=== PATIENT | female | born 1935 | race Caucasian/White ===

== ENCOUNTER 2019-03-13 16:32 | Inpatient (IN) | payer OTHER ==
[~2019-03-13] VITALS: Ht 160 cm; Wt 109.0 kg
[~2019-03-13 16:32] MED LIST: ACET325 PO; ALLEGRA ALLERGY60 MG PO; Advair Hfa 230-12 GM; Aspirin EC81 MG PO; DILT60 PO; DULERA 200 MCG/13 GM INH; FENO48 PO; FLONASE ALLERG9.9 ML; FLUSAL2505 INH; GLIM2 PO; LEVFLO250 PO; LEVFLO500 PO; LEVSOD125 PO; METF500 PO; MONT10T PO; Mirapex0.25 MG PO; POTA10T PO; QUIN10 PO; QUIN5 PO; SERT50 PO; TORSE20 PO
[2019-03-13 17:09] LABS: BASOPHILS ABSOLUTE AUTO 0.02 K/mm3 (0.00-0.23); BASOPHILS PERCENT AUTO 0 % (0-2); EOSINOPHILS ABSOLUTE AUTO 0.03 K/mm3 (0.00-0.68); EOSINOPHILS PERCENT AUTO 0 % (0-6); Hematocrit 35.4 % (33.0-51.0); IMMATURE GRAN ABSOLUTE AUTO 0.24 K/mm3 (0.00-0.10); IMMATURE GRAN PERCENT AUTO 2 % (0-1); LYMPHOCYTES ABSOLUTE AUTO 1.06 K/mm3 (0.84-5.20); LYMPHOCYTES PERCENT AUTO 7 % (21-46); MONOCYTES ABSOLUTE AUTO 0.64 K/mm3 (0.16-1.47); MONOCYTES PERCENT AUTO 5 % (4-13); Mean Corpuscular HGB 29.4 pg (26.0-34.0); Mean Corpuscular HGB Conc 33.9 g/dL (31.5-36.5); Mean Corpuscular Volume 87 fL (80-100); Mean Platelet Volume 9.7 fL (9.1-12.4); NEUTROPHILS ABSOLUTE AUTO 12.25 K/mm3 (1.96-9.15); NEUTROPHILS PERCENT AUTO 86 % (41-73); Platelet Count 274 K/mm3 (150-400); RDW Coefficient Variation 14.7 % (11.7-14.2); RDW Standard Deviation 46.8 fL (35.1-46.3); Red Blood Cell Count 4.08 M/mm3 (3.80-5.20); White Blood Cell Count 14.24 K/mm3 (4.00-11.30)
[2019-03-13 17:28] LABS: Albumin, Blood 3.5 g/dL (3.4-5.0); Albumin/Globulin Ratio 0.9 (0.8-1.8); Bilirubin, Total 0.3 mg/dL (0.1-1.0); Bun/Creatinine Ratio 37.2 (12.0-20.0); Calcium, Blood 8.3 mg/dL (8.5-10.1); Creatinine, Blood 1.37 mg/dL (0.40-1.00); Globulin, Blood 3.7 g/dL (2.2-4.0); Potassium, Blood 4.9 mmol/L (3.5-5.5); Total Protein, Blood 7.2 g/dL (6.4-8.2); Troponin I 0.035 ng/mL (0.000-0.040)
[2019-03-13] MEDS ORDERED: ALBU2.5V5 NEB (19:34)
[2019-03-13] MEDS ORDERED: ALLO100 PO (19:41)
--- NOTE | 2019-03-13 19:44 | NUR ---
Report from Leonie in ER on 83 year old PT with COPD who was outpt ABX and steroids with continued SOB. Uses home CPAP. Will be on BG achs and IV steroids. Await admission.
[2019-03-13] MEDS ORDERED: DULERA 200 MCG/13 GM INH (19:45)
[2019-03-13] MEDS ORDERED: ALBU90OI61 INH (19:46)
[2019-03-13] MEDS ORDERED: ASCO500 PO (19:47)
[2019-03-13] MEDS ORDERED: THERA1 EACH PO (19:47)
[2019-03-13] MEDS ORDERED: Oyster Shell C500 MG PO (19:49)
[2019-03-13] MEDS ORDERED: Fish Oil 10001000 MG PO (19:50)
[2019-03-13] MEDS ORDERED: DICLOFENAC SOD100 G1 TOP (19:50)
[2019-03-14 04:59] LABS: BASOPHILS ABSOLUTE AUTO 0.01 K/mm3 (0.00-0.23); BASOPHILS PERCENT AUTO 0 % (0-2); EOSINOPHILS PERCENT AUTO 0 % (0-6); Hematocrit 37.5 % (33.0-51.0); Hemoglobin 12.3 g/dL (11.5-16.0); IMMATURE GRAN ABSOLUTE AUTO 0.29 K/mm3 (0.00-0.10); IMMATURE GRAN PERCENT AUTO 3 % (0-1); LYMPHOCYTES ABSOLUTE AUTO 0.78 K/mm3 (0.84-5.20); LYMPHOCYTES PERCENT AUTO 7 % (21-46); MONOCYTES ABSOLUTE AUTO 0.13 K/mm3 (0.16-1.47); MONOCYTES PERCENT AUTO 1 % (4-13); Mean Corpuscular HGB 28.7 pg (26.0-34.0); Mean Corpuscular HGB Conc 32.8 g/dL (31.5-36.5); Mean Corpuscular Volume 87 fL (80-100); Mean Platelet Volume 9.6 fL (9.1-12.4); NEUTROPHILS ABSOLUTE AUTO 10.59 K/mm3 (1.96-9.15); NEUTROPHILS PERCENT AUTO 90 % (41-73); Platelet Count 221 K/mm3 (150-400); RDW Coefficient Variation 14.6 % (11.7-14.2); RDW Standard Deviation 46.5 fL (35.1-46.3); Red Blood Cell Count 4.29 M/mm3 (3.80-5.20)
[2019-03-14 05:21] LABS: Bun/Creatinine Ratio 41.9 (12.0-20.0); Calcium, Blood 8.7 mg/dL (8.5-10.1); Creatinine, Blood 1.36 mg/dL (0.40-1.00)
--- NOTE | 2019-03-14 06:21 | NUR ---
83 year old female with copd on home cpap and nebs admitted with continued sob despite oral steroids and antibiotic therapy. On room air, neb txs q 4 hours WA and prn. Denies pain or acute distress. Continues on IV steroids q 6 hours. had elevated blood glucose took hs snack and sliding scale insulin.
--- NOTE | 2019-03-14 18:35 | NUR ---
SHIFT SUMMARY: PT IS ADMITED FOR COPD EXACERBATION. SHE IS ABLE TO CHANGE POSITIONS IN BED, AND AMBULATES INDEPEPENDANTLY TO THE RESTROOM. SHE IS IS CONTACT [facility] FOR HX OF MERSA. FAMILY VISITED FOR ABOUT 30 MINUTES. SHE IS COOPERATIVE WITH CARE. EATING, DRINKING, VOIDING WELL. DYSPNEA ON EXERTION RECOVERS WITHIN 60 SECONDS. RESPRATION EVEN AND UNLABORED ON ROOM AIR AT REST.
--- NOTE | 2019-03-14 21:44 | NUR ---
03/14/192144 INFORMED DR CHAVEZ OF BLOOD SUGAR= 423 AND WILL BE GETTING 12 UNITS PER INSULIN SCALE. SHE STATES THAT WILL BE ADEQUATE FOR NOW.
--- NOTE | 2019-03-15 07:48 | NUR ---
03/15/19 0630 AWAKENED FOR AM MEDS. CPAP ON ALL NIGHT EXCEPT WHEN UP TO THE BATHROOM. SLIGHT SOB WITH ACTIVITY OR TALKING BUT O2 SATS REMAIN GOOD ON ROOM AIR. UNEVENTFUL NIGHT.
--- NOTE | 2019-03-15 18:47 | NUR ---
SHIFT SUMMARY: HOME O2 EVALUATION WALK AND REST COMPLEATED. SESP TOOK APPROX. 90 SECONDS TO STABALIZE AFTER EXERTION. SATS REMAINED ABOVE 90%. PT REQUIRES CONTINUED INSULIN COVERAGE. PATIENT INDEPENDENT IN THE ROOM. EATING AND DRINKING WELL. NO ACUTE CHHANGES DURING THIS SHIFT.
--- NOTE | 2019-03-16 06:35 | NUR ---
VSS, AFEBRILE, A/O, INDEPENDENT. PLEASANT, COOPERATIVE, [place], TAKES MEDS WHOLE W/WATER, SLEPT WELL OVERNOC, NO COMPLAINTS, PT ANTICIPATES BEING D/C'S HOME TODAY OR TOMORROW. WILL REPORT TO ON-COMINGS SHIFT.
[2019-03-16] MEDS ORDERED: PRED20 (11:16)
--- NOTE | 2019-03-16 13:19 | NUR ---
PATIENT DISCHARGED AT 1315. WHEELED DOWN BY NURSE AND HELPED INTO THE CAR. DAUGHTER TO TAKE HER HOME. DISCHARGE INFORMATION WAS GONE OVER EARLIER. IV PREVIOUSLY REMOVED.
--- NOTE | 2019-03-16 15:06 | NUR ---
D/C INSTRUCTIONS PROVIDED AND EXPLAINED TO PT. IV REMOVED. PT D/C VIA WHEELCHAIR WITH GLASS BLOWER HELPER AND FAMILY.
== END 2019-03-16 13:34 | disposition home or self-care (01) | DRG 203 ==
LOC: ER 16:32 → MEDS 19:10 → ENPENDDIS 03-16 09:08 → MEDS 03-16 13:34
PROVIDERS: Physician Assistant; ADMIT Hospitalist
DX: J45.51 Severe persistent asthma with (acute) exacerbation (principal); Z79.82 Long term (current) use of aspirin; Z79.84 Long term (current) use of oral hypoglycemic drugs; G47.33 Obstructive sleep apnea (adult) (pediatric); E03.9 Hypothyroidism, unspecified; I35.0 Nonrheumatic aortic (valve) stenosis; Z87.891 Personal history of nicotine dependence; Z96.653 Presence of artificial knee joint, bilateral; D72.829 Elevated white blood cell count, unspecified; T38.0X5A Adverse effect of glucocorticoids and synthetic analogues, initial encounter; Y92.9 Unspecified place or not applicable; E11.22 Type 2 diabetes mellitus with diabetic chronic kidney disease; N18.3 Chronic kidney disease, stage 3 (moderate); I12.9 Hypertensive chronic kidney disease with stage 1 through stage 4 chronic kidney disease, or unspecified chronic kidney disease
CPT/HCPCS: 36415; 71046; 80048; 80053; 82947; 84484; 85025; 87081; 93005; 93010; 94640; 94760; 94761; 94762; 96374; 96376; 99285-25; J2930

== ENCOUNTER 2019-05-19 05:54 | Day surgery (SDC) | payer OTHER ==
[~2019-05-19] VITALS: Ht 160 cm; Wt 109.0 kg
[~2019-05-19 05:54] MED LIST changes: +ALBU2.5V5 NEB; +ALBU90OI61 INH; +ALLO100 PO; +ASCO500 PO; +DICLOFENAC SOD100 G1 TOP; +Fish Oil 10001000 MG PO; +Oyster Shell C500 MG PO; +PRED20; +THERA1 EACH PO
--- NOTE | 2019-05-19 09:58 | NUR ---
PT HAS BEEN IN RECLINER, UP TO BTR X 2, RADIAL TR BAND SITE STABLE, FINISHED BREAKFAST, SIPPING TEA, CBG 90'S BEFORE BREAKFAST, VSS, SEE RYTHM STRIP RECORD FOR RECOVERY VITAL SIGNS
--- NOTE | 2019-05-19 11:27 | NUR ---
PT DRESSED, IV DC'D INTACT, R RADIAL DRESSING/WRIST SPLINT/ARMSLING PLACED. SITE STABLE, PT DC'D BY WC BY ESCORT W IRENEE DARY.
== END 2019-05-19 11:30 | disposition home or self-care (01) ==
LOC: MHTC 05:54
DX: Z01.810 Encounter for preprocedural cardiovascular examination (principal); I35.0 Nonrheumatic aortic (valve) stenosis; I25.10 Atherosclerotic heart disease of native coronary artery without angina pectoris; E11.9 Type 2 diabetes mellitus without complications; I10 Essential (primary) hypertension; G47.30 Sleep apnea, unspecified; J45.909 Unspecified asthma, uncomplicated; E03.9 Hypothyroidism, unspecified; E78.5 Hyperlipidemia, unspecified; M10.9 Gout, unspecified; Z88.1 Allergy status to other antibiotic agents; Z88.8 Allergy status to other drugs, medicaments and biological substances; Z79.84 Long term (current) use of oral hypoglycemic drugs; Z79.899 Other long term (current) drug therapy; Z99.89 Dependence on other enabling machines and devices; Z87.891 Personal history of nicotine dependence
CPT/HCPCS: 82947; 93454; 99152; 99153; C1769; C1894; J1644; J2250; J3010; J7030; J7042; Q9967

== ENCOUNTER 2019-09-16 00:24 | Day surgery (SDC) | payer OTHER | END 2019-09-16 16:10 | disposition home or self-care (01) | LOC: ATC 00:24 | DX: I73.9 Peripheral vascular disease, unspecified (principal); E11.9 Type 2 diabetes mellitus without complications; G47.30 Sleep apnea, unspecified; I35.0 Nonrheumatic aortic (valve) stenosis; I50.9 Heart failure, unspecified; J44.9 Chronic obstructive pulmonary disease, unspecified; Z95.4 Presence of other heart-valve replacement; Z88.1 Allergy status to other antibiotic agents; Z88.8 Allergy status to other drugs, medicaments and biological substances; Z87.891 Personal history of nicotine dependence | CPT/HCPCS: 36415; 36430; 86850; 86900; 86901; 86923; J7050; P9016 ==

== ENCOUNTER 2019-09-18 21:14 | Emergency (ER) | payer OTHER ==
[~2019-09-18] VITALS: Ht 160 cm; Wt 108.9 kg
[2019-09-18] MEDS ORDERED: Aspir 8181 MG PO (21:42)
[2019-09-18] MEDS ORDERED: ALLO100 PO (21:42)
[2019-09-18] MEDS ORDERED: CLOP75 PO (21:42)
[2019-09-18] MEDS ORDERED: Fish Oil 10001000 MG PO (21:43)
[2019-09-18] MEDS ORDERED: SERT25 PO (21:43)
[2019-09-18] MEDS ORDERED: LEVSOD125 PO (21:43)
[2019-09-18] MEDS ORDERED: GLIM2 PO (21:43)
[2019-09-18] MEDS ORDERED: POTA10T PO (21:43)
[2019-09-18] MEDS ORDERED: DULERA 200 MCG/13 GM INH (21:44)
[2019-09-18] MEDS ORDERED: TORSE20 PO (21:44)
[2019-09-18] MEDS ORDERED: Albuterol2.5 MG/0.5 INH (21:45)
[2019-09-18] MEDS ORDERED: FERSU300 PO (21:45)
[2019-09-18] MEDS ORDERED: ALBU90OI INH (21:46)
[2019-09-18 22:03] LABS: BASOPHILS ABSOLUTE AUTO 0.08 K/mm3 (0.00-0.23); BASOPHILS PERCENT AUTO 1 % (0-2); EOSINOPHILS ABSOLUTE AUTO 0.29 K/mm3 (0.00-0.68); EOSINOPHILS PERCENT AUTO 4 % (0-6); Hemoglobin 10.9 g/dL (11.5-16.0); IMMATURE GRAN ABSOLUTE AUTO 0.11 K/mm3 (0.00-0.10); IMMATURE GRAN PERCENT AUTO 2 % (0-1); LYMPHOCYTES ABSOLUTE AUTO 1.21 K/mm3 (0.84-5.20); LYMPHOCYTES PERCENT AUTO 17 % (21-46); MONOCYTES ABSOLUTE AUTO 0.79 K/mm3 (0.16-1.47); MONOCYTES PERCENT AUTO 11 % (4-13); Mean Corpuscular HGB 28.8 pg (26.0-34.0); Mean Corpuscular HGB Conc 31.1 g/dL (31.5-36.5); Mean Platelet Volume 8.8 fL (9.1-12.4); NEUTROPHILS ABSOLUTE AUTO 4.83 K/mm3 (1.96-9.15); NEUTROPHILS PERCENT AUTO 66 % (41-73); Platelet Count 385 K/mm3 (150-400); RDW Coefficient Variation 16.1 % (11.7-14.2); RDW Standard Deviation 53.5 fL (35.1-46.3); Red Blood Cell Count 3.79 M/mm3 (3.80-5.20); White Blood Cell Count 7.31 K/mm3 (4.00-11.30)
[2019-09-18 22:08] LABS: Mean Corpuscular Volume 92 fL (80-100)
[2019-09-18 22:25] LABS: Albumin, Blood 3.3 g/dL (3.4-5.0); Albumin/Globulin Ratio 0.9 (0.8-1.8); Bilirubin, Total 0.4 mg/dL (0.1-1.0); Bun/Creatinine Ratio 30.5 (12.0-20.0); Calcium, Blood 9.2 mg/dL (8.5-10.1); Creatinine, Blood 1.41 mg/dL (0.40-1.00); Globulin, Blood 3.8 g/dL (2.2-4.0); Potassium, Blood 4.6 mmol/L (3.5-5.5); Total Protein, Blood 7.1 g/dL (6.4-8.2)
[2019-09-18] MEDS ORDERED: Vibramycin100 MG PO (22:43)
== END 2019-09-18 23:34 | disposition home or self-care (01) ==
LOC: ER 21:14
PROVIDERS: Emergency Medicine
DX: L03.115 Cellulitis of right lower limb (principal); E11.22 Type 2 diabetes mellitus with diabetic chronic kidney disease; I12.9 Hypertensive chronic kidney disease with stage 1 through stage 4 chronic kidney disease, or unspecified chronic kidney disease; N18.9 Chronic kidney disease, unspecified; D63.1 Anemia in chronic kidney disease; E11.65 Type 2 diabetes mellitus with hyperglycemia; E03.9 Hypothyroidism, unspecified; E78.5 Hyperlipidemia, unspecified; J45.909 Unspecified asthma, uncomplicated; Z87.440 Personal history of urinary (tract) infections; Z87.891 Personal history of nicotine dependence; Z88.8 Allergy status to other drugs, medicaments and biological substances; Z88.1 Allergy status to other antibiotic agents; Z79.899 Other long term (current) drug therapy; Z79.82 Long term (current) use of aspirin
CPT/HCPCS: 36415; 80053; 85025; 99283

== ENCOUNTER 2019-09-27 14:54 | Emergency (ER) | payer OTHER ==
[~2019-09-27] VITALS: Ht 160 cm; Wt 107.5 kg
[~2019-09-27 14:54] MED LIST changes: +ALBU90OI INH; +Albuterol2.5 MG/0.5 INH; +Aspir 8181 MG PO; +CLOP75 PO; +FERSU300 PO; +SERT25 PO; +Vibramycin100 MG PO
[2019-09-27 15:40] LABS: BASOPHILS PERCENT AUTO 1 % (0-2); EOSINOPHILS ABSOLUTE AUTO 0.24 K/mm3 (0.00-0.68); EOSINOPHILS PERCENT AUTO 3 % (0-6); Hematocrit 35.5 % (33.0-51.0); Hemoglobin 11.3 g/dL (11.5-16.0); IMMATURE GRAN ABSOLUTE AUTO 0.04 K/mm3 (0.00-0.10); IMMATURE GRAN PERCENT AUTO 1 % (0-1); LYMPHOCYTES PERCENT AUTO 14 % (21-46); MONOCYTES ABSOLUTE AUTO 0.68 K/mm3 (0.16-1.47); MONOCYTES PERCENT AUTO 10 % (4-13); Mean Corpuscular HGB 28.7 pg (26.0-34.0); Mean Corpuscular HGB Conc 31.8 g/dL (31.5-36.5); Mean Corpuscular Volume 90 fL (80-100); NEUTROPHILS ABSOLUTE AUTO 4.99 K/mm3 (1.96-9.15); NEUTROPHILS PERCENT AUTO 71 % (41-73); Platelet Count 289 K/mm3 (150-400); RDW Coefficient Variation 15.5 % (11.7-14.2); RDW Standard Deviation 50.8 fL (35.1-46.3); Red Blood Cell Count 3.94 M/mm3 (3.80-5.20); White Blood Cell Count 7.05 K/mm3 (4.00-11.30)
[2019-09-27 15:59] LABS: Albumin, Blood 3.7 g/dL (3.4-5.0); Albumin/Globulin Ratio 1.1 (0.8-1.8); Bilirubin, Total 0.4 mg/dL (0.1-1.0); Bun/Creatinine Ratio 34.2 (12.0-20.0); Calcium, Blood 9.7 mg/dL (8.5-10.1); Creatinine, Blood 1.52 mg/dL (0.40-1.00); Globulin, Blood 3.4 g/dL (2.2-4.0); Potassium, Blood 4.3 mmol/L (3.5-5.5); Total Protein, Blood 7.1 g/dL (6.4-8.2)
== END 2019-09-27 16:21 | disposition home or self-care (01) ==
LOC: ER 14:54
PROVIDERS: Physician Assistant
DX: L03.115 Cellulitis of right lower limb (principal); I13.0 Hypertensive heart and chronic kidney disease with heart failure and stage 1 through stage 4 chronic kidney disease, or unspecified chronic kidney disease; E11.22 Type 2 diabetes mellitus with diabetic chronic kidney disease; I50.9 Heart failure, unspecified; N18.9 Chronic kidney disease, unspecified; J44.9 Chronic obstructive pulmonary disease, unspecified; E03.9 Hypothyroidism, unspecified; E78.5 Hyperlipidemia, unspecified; Z88.1 Allergy status to other antibiotic agents; Z88.8 Allergy status to other drugs, medicaments and biological substances; Z79.899 Other long term (current) drug therapy; Z79.82 Long term (current) use of aspirin; Z79.02 Long term (current) use of antithrombotics/antiplatelets
CPT/HCPCS: 36415; 80053; 85025; 99283

== ENCOUNTER 2020-01-03 19:23 | Emergency (ER) | payer OTHER ==
[~2020-01-03] VITALS: Ht 160 cm; Wt 107.0 kg
[2020-01-03] MEDS ORDERED: BENZ2 PO (21:16)
== END 2020-01-03 21:57 | disposition home or self-care (01) ==
LOC: ER 19:23
DX: M54.2 Cervicalgia (principal); I11.0 Hypertensive heart disease with heart failure; I50.9 Heart failure, unspecified; E11.9 Type 2 diabetes mellitus without complications; J44.9 Chronic obstructive pulmonary disease, unspecified; E03.9 Hypothyroidism, unspecified; Z88.1 Allergy status to other antibiotic agents; Z88.8 Allergy status to other drugs, medicaments and biological substances; Z79.899 Other long term (current) drug therapy; Z79.82 Long term (current) use of aspirin; Z79.01 Long term (current) use of anticoagulants; Z79.51 Long term (current) use of inhaled steroids; Z87.891 Personal history of nicotine dependence
CPT/HCPCS: 72040; 99283-25

== ENCOUNTER → 2020-02-05 | Outpatient (CLI) | payer OTHER ==
[~2020-02-05] MED LIST changes: +BENZ2 PO
== END ==
LOC: LAB EV 17:39 → LAB SHORT 17:39
DX: N39.0 Urinary tract infection, site not specified (principal)
CPT/HCPCS: 87077; 87086; 87186

== ENCOUNTER 2020-03-01 13:06 | Observation (INO) | payer OTHER ==
[~2020-03-01] VITALS: Ht 160 cm; Wt 106.0 kg
[~2020-03-01 13:06] MED LIST changes: +DULO60 PO; +GLUC500 PO; +PRAMIPEXOLE D0.25 M1 PO
--- NOTE | 2020-03-01 15:40 | NUR ---
PT OPTING TO HAVE PROCEDURE SCHEDULED SOME TIME NEXT WEEK DUE TO DELAY TODAY.
--- NOTE | 2020-03-01 15:47 | NUR ---
PT OPTING TO STAY AND WAIT TO DO PROCEDURE AT THIS TIME
--- NOTE | 2020-03-01 19:39 | NUR ---
ASSUMED PT CARE AT 1905 PT ARRIVED FROM MARKETING SUPPORT COORDINATOR S/P ANGIOPLASTY TO JOHANNY AND SFA. LEFT FEMORAL ACCESS WITH MINX CLOSURE DEVICE PLACED IN MARKETING SUPPORT COORDINATOR. SITE IS SOFT, NON-TENDER WITH NO SIGNS OF OOZING. PERIPHERAL PULSES ARE PALPABLE. PT DENIES ANY NUMBNESS/TINGLING TO LOWER EXTREMITY; JUST STATES HER LEGS FEEL "HEAVY". PT ALSO HAS A LEFT RADIAL ACCESS SITE WITH TR BAND INFLATED AND IN PLACE. SITE IS SOFT, NON-TENDER WITH NO OOZING NOTED. CAP REFILL <3SEC AND RADIAL PULSE PALPATED. DENIES NUMBNESS/TINGLING TO DISTAL FINGERS. PT UNDERSTANDING OF REMAINING SUPINE, NOT BENDING AT HER KNEE, WELL NOT TILTING/LIFTING HER HEAD FORWARD. PT IS ALERT AND ORIENTED AND ABLE TO MAKE HER NEEDS KNOWN. CALL LIGHT LEFT WITHIN REACH. VSS; SEE FLOWSHEET.
--- NOTE | 2020-03-01 23:51 | NUR ---
DISCHARGED PT HOME AT 2350 DISCHARGE INSTRUCTIONS GIVEN VERBALLY, WELL WRITTEN DISCHARGE INSTRUCTIONS SENT HOME WITH PATIENT. PT DEMONSTRATED UNDERSTANDING BY VERBAL READ BACK. DISCONTINUED IV TO LEFT AC. CLEANSED LEFT RADIAL SITE WITH CHLORA PREP, ALLOWED TO DRY, AND PLACED TEGADERM TO SITE. STRONG RADIAL PULSE; SITE SOFT, NON-TENDER WITH NO OOZING NOTED. ARM BOARD PLACED A REMINDER FOR PT NOT TO BEND OR PUT PRESSURE/WEIGHT ON ARM. LEFT FEMORAL SITE REMAINS WITH CHG TEGADERM DRESSING WITH NO OOZING; SITE IS SOFT, NON-TENDER. PT ASSISTED OFF UNIT IN WHEELCHAIR TO MEET HER FRIEND BY ER ENTRANCE. BELONGINGS WENT WITH PT. VSS UPON D/C; SEE FLOWSHEET.
== END 2020-03-01 23:55 | disposition home or self-care (01) ==
LOC: MHTC 13:06 → ICUW 19:37
PROVIDERS: ADMIT Radiology Diagnostic Radiology
DX: E11.51 Type 2 diabetes mellitus with diabetic peripheral angiopathy without gangrene (principal); I70.223 Atherosclerosis of native arteries of extremities with rest pain, bilateral legs; E03.9 Hypothyroidism, unspecified; I12.9 Hypertensive chronic kidney disease with stage 1 through stage 4 chronic kidney disease, or unspecified chronic kidney disease; E11.22 Type 2 diabetes mellitus with diabetic chronic kidney disease; N18.9 Chronic kidney disease, unspecified; E78.5 Hyperlipidemia, unspecified; M10.9 Gout, unspecified; G47.30 Sleep apnea, unspecified; Z79.02 Long term (current) use of antithrombotics/antiplatelets; Z79.84 Long term (current) use of oral hypoglycemic drugs; Z87.891 Personal history of nicotine dependence; Z99.89 Dependence on other enabling machines and devices; Z95.2 Presence of prosthetic heart valve; Z88.1 Allergy status to other antibiotic agents; Z88.8 Allergy status to other drugs, medicaments and biological substances; Z79.899 Other long term (current) drug therapy
CPT/HCPCS: 85347; 99152; 99153; C1725; C1769; C1887; C1894; C2623; J1644; J2250; J3010; J7030; Q9967

== ENCOUNTER 2020-03-15 10:07 | Day surgery (SDC) | payer OTHER ==
[~2020-03-15] VITALS: Ht 160 cm; Wt 106.0 kg
--- NOTE | 2020-03-15 15:15 | NUR ---
1500 PATIENT BACK IN THE [facility]ART CENTER AT 1445 AND MANUAL PRESSURE HELD AFTER PEDAL SHEATH REMOVAL, HELD FOR 15 MINUTES. FREEDOM AND TEGADERM APPLIED AFTER HEMOSTASIS. PULSES RIGHT FOOT PT AND DP DOPPLER. LEFT FOOT PT AND DP DOPPLER. CONTINUE TO MONITOR AND WATER TO DRINK. RESTING QUIETLY.
--- NOTE | 2020-03-15 15:38 | NUR ---
1535 RIGHT FOOT WASHED OFF AROUND DRESSING. PREP SOLUTION WAS DRY AND ITICHING SKIN. PULSES UNCHANGED.
--- NOTE | 2020-03-15 16:28 | NUR ---
1620 PATIENT REPOSITIONED UP IN THE BED AND TURNED SLIGHTLY TO THE RIGHT TO FACILITATE EATING. TRAY SET UP AND FEEDING SELF. DRINKING WATER. VVS. LFA AND RIGHT PEDAL, CDI, NO HEMATOMA. CALL LIGHT IN REACH.
--- NOTE | 2020-03-15 18:22 | NUR ---
1750 PATIENT UP AND TO THE RESTROOM. GIAT STEADY AND NO PAIN NOTED.
--- NOTE | 2020-03-15 18:23 | NUR ---
1800 PATIENT PIV DISCONTINUED AND PATIENT DRESSED SELF. GATHERED ALL BELONGINGS. REVIEWED ALL DISCHARGE INSTRUCTIONS. COPIED MADE OF ALL DISCHARGE INSTRUCTIONS. RIDE TO MEET HER OUTSIDE AT 1820 TO TAKE HER HOME. 182 PATIENT DISCHARGED TO PRIVATE VEHICLE TO HOME.
== END 2020-03-15 22:50 | disposition home or self-care (01) ==
LOC: MHTC 10:07 → SURS 10:08 → MHTC 10:27
DX: E11.51 Type 2 diabetes mellitus with diabetic peripheral angiopathy without gangrene (principal); I70.221 Atherosclerosis of native arteries of extremities with rest pain, right leg; E11.22 Type 2 diabetes mellitus with diabetic chronic kidney disease; I12.9 Hypertensive chronic kidney disease with stage 1 through stage 4 chronic kidney disease, or unspecified chronic kidney disease; N18.9 Chronic kidney disease, unspecified; Z95.2 Presence of prosthetic heart valve; G47.30 Sleep apnea, unspecified; E03.9 Hypothyroidism, unspecified; E78.5 Hyperlipidemia, unspecified; M10.9 Gout, unspecified; Z87.891 Personal history of nicotine dependence; Z88.1 Allergy status to other antibiotic agents; Z99.89 Dependence on other enabling machines and devices; Z88.8 Allergy status to other drugs, medicaments and biological substances; Z79.02 Long term (current) use of antithrombotics/antiplatelets; Z79.899 Other long term (current) drug therapy; Z79.84 Long term (current) use of oral hypoglycemic drugs
CPT/HCPCS: 37228; 37232; 75710; 75774; 76937; 85347; 99152; 99153; C1725; C1760; C1769; C1887; C1894; J1644; J2250; J3010; J7030; Q9967

== ENCOUNTER → 2020-04-18 | Outpatient (CLI) | payer OTHER ==
[2020-04-19 18:54] LABS: Campylobacter Sp Not Detected (NOT DETECT); Enteroaggregative E. coli-EAEC Not Detected (NOT DETECT); Enterotoxigenic E. coli-ETEC Not Detected (NOT DETECT); Plesiomonas Shigelloides Not Detected (NOT DETECT); Salmonella Sp Not Detected (NOT DETECT); Vibrio Cholerae Not Detected (NOT DETECT); Vibrio Sp Not Detected (NOT DETECT); Yersinia Enterocolitica Not Detected (NOT DETECT)
[2020-04-19 18:55] LABS: Adenovirus F 40/41 Not Detected (NOT DETECT); Astrovirus Not Detected (NOT DETECT); Cryptosporidium Not Detected (NOT DETECT); Cyclospora Cayetanensis Not Detected (NOT DETECT); E. Coli O157 Not Detected (NOT DETECT); Entamoeba Histolytica Not Detected (NOT DETECT); Enteropathogenic E. coli-EPEC Not Detected (NOT DETECT); Giardia Lamblia Not Detected (NOT DETECT); Norovirus GI/GII Not Detected (NOT DETECT); Rotavirus A Not Detected (NOT DETECT); Sapovirus Not Detected (NOT DETECT); Shiga Toxin-prod E. coli-STEC Not Detected (NOT DETECT); Shigella/Enteroin E. coli-EIEC Not Detected (NOT DETECT)
== END ==
LOC: LAB SHORT 14:22 → LAB 14:22
PROVIDERS: Internal Medicine
DX: R19.7 Diarrhea, unspecified (principal)
CPT/HCPCS: 0097U

== ENCOUNTER → 2020-04-23 | Outpatient (CLI) | payer OTHER ==
[2020-04-23 13:50] LABS: Source, Urine Clean Catch
[2020-04-23 14:10] LABS: Bilirubin, Urine Neg (Neg); Blood, Urine 1+ (Neg); Glucose Qualitative, Urine Neg (Neg); Ketones, Urine Neg (Neg); Leukocyte Esterase, Urine 3+ (Neg); Nitrite, Urine Pos (Neg); Protein, Urine 2+ (Neg); Urobilinogen, Urine NORM (Normal)
[2020-04-23 14:14] LABS: Creatinine, Urine Random 70.6 mg/dL (27.00-270.00); Protein, Urine Random 34.5 mg/dL (0.0-11.9)
[2020-04-23 14:44] LABS: Appearance, Urine Hazy (Clear); Color, Urine Amber (P-Yellow)
[2020-04-23 14:45] LABS: White Blood Cells, Urine 25-50 /hpf (0-5)
[2020-04-23 14:46] LABS: Bacteria Many /hpf; Squamous Epithelial Cells Few /hpf (Few)
== END | disposition home or self-care (01) ==
LOC: LAB SHORT 11:21 → LAB 11:21
PROVIDERS: Internal Medicine
DX: N18.3 Chronic kidney disease, stage 3 (moderate) (principal); R35.0 Frequency of micturition
CPT/HCPCS: 81001; 82570; 84156

== ENCOUNTER → 2020-04-25 | Outpatient (CLI) | payer OTHER | END | disposition home or self-care (01) | LOC: LAB 13:47 → LAB SHORT 13:47 | DX: L08.0 Pyoderma (principal) | CPT/HCPCS: 87070; 87205 ==

== ENCOUNTER 2020-05-09 10:47 | Day surgery (SDC) | payer OTHER ==
[~2020-05-09] VITALS: Ht 160 cm; Wt 108.0 kg
[2020-05-09 11:47] LABS: BASOPHILS ABSOLUTE AUTO 0.07 K/mm3 (0.00-0.23); BASOPHILS PERCENT AUTO 1 % (0-2); EOSINOPHILS ABSOLUTE AUTO 0.37 K/mm3 (0.00-0.68); EOSINOPHILS PERCENT AUTO 6 % (0-6); Hematocrit 35.5 % (33.0-51.0); Hemoglobin 11.6 g/dL (11.5-16.0); IMMATURE GRAN ABSOLUTE AUTO 0.03 K/mm3 (0.00-0.10); IMMATURE GRAN PERCENT AUTO 1 % (0-1); LYMPHOCYTES ABSOLUTE AUTO 1.15 K/mm3 (0.84-5.20); LYMPHOCYTES PERCENT AUTO 19 % (21-46); MONOCYTES ABSOLUTE AUTO 0.67 K/mm3 (0.16-1.47); MONOCYTES PERCENT AUTO 11 % (4-13); Mean Corpuscular HGB 29.2 pg (26.0-34.0); Mean Corpuscular HGB Conc 32.7 g/dL (31.5-36.5); Mean Corpuscular Volume 89 fL (80-100); Mean Platelet Volume 8.8 fL (9.1-12.4); NEUTROPHILS ABSOLUTE AUTO 3.69 K/mm3 (1.96-9.15); NEUTROPHILS PERCENT AUTO 62 % (41-73); Platelet Count 236 K/mm3 (150-400); RDW Coefficient Variation 14.1 % (11.7-14.2); RDW Standard Deviation 45.4 fL (35.1-46.3); Red Blood Cell Count 3.97 M/mm3 (3.80-5.20); White Blood Cell Count 5.98 K/mm3 (4.00-11.30)
[2020-05-09 11:57] LABS: Bun/Creatinine Ratio 35.8 (12.0-20.0); Calcium, Blood 9.5 mg/dL (8.5-10.1); Creatinine, Blood 1.48 mg/dL (0.40-1.00); Potassium, Blood 4.9 mmol/L (3.5-5.5)
[2020-05-09 12:04] LABS: International Normalized Ratio 0.98; Prothrombin Time Results 10.5 Sec (9.7-11.5)
--- NOTE | 2020-05-09 15:39 | NUR ---
PT UP TO BATHROOM AND DRESSES SELF. BOTH PEDAL ACCESSES STABLE. SALINE LOCK OUT WITH CATHETER INTACT. DISCHARGE GONE OVER WITH PT, VERBALIZES UNDERSTANDING.
--- NOTE | 2020-05-09 15:55 | NUR ---
PT TO PRIVATE ROOM PER W/C WITH ONE STAFF.
== END 2020-05-09 15:45 | disposition home or self-care (01) ==
LOC: MHTC 10:47
PROVIDERS: Radiology Diagnostic Radiology
DX: I70.212 Atherosclerosis of native arteries of extremities with intermittent claudication, left leg (principal); I10 Essential (primary) hypertension; E11.51 Type 2 diabetes mellitus with diabetic peripheral angiopathy without gangrene; E78.5 Hyperlipidemia, unspecified; I25.10 Atherosclerotic heart disease of native coronary artery without angina pectoris; J45.909 Unspecified asthma, uncomplicated; E66.9 Obesity, unspecified; Z87.891 Personal history of nicotine dependence; Z88.8 Allergy status to other drugs, medicaments and biological substances; Z88.1 Allergy status to other antibiotic agents; Z79.02 Long term (current) use of antithrombotics/antiplatelets; Z79.01 Long term (current) use of anticoagulants; Z79.84 Long term (current) use of oral hypoglycemic drugs; Z79.899 Other long term (current) drug therapy; Z68.41 Body mass index [BMI] 40.0-44.9, adult; G47.30 Sleep apnea, unspecified
CPT/HCPCS: 37224; 37228; 37232; 75710; 75774; 76937; 80048; 85025; 85610; 99152; 99153; C1725; C1769; C1887; C1894; C2623; J1644; J2250; J3010; J7030; Q9967

== ENCOUNTER 2020-06-29 00:21 | Day surgery (SDC) | payer OTHER | END 2020-06-29 22:54 | disposition home or self-care (01) | LOC: WOUND 00:21 | DX: E11.622 Type 2 diabetes mellitus with other skin ulcer (principal); L97.922 Non-pressure chronic ulcer of unspecified part of left lower leg with fat layer exposed; L97.812 Non-pressure chronic ulcer of other part of right lower leg with fat layer exposed; I87.2 Venous insufficiency (chronic) (peripheral); E66.9 Obesity, unspecified; I10 Essential (primary) hypertension; E03.9 Hypothyroidism, unspecified; J45.909 Unspecified asthma, uncomplicated; E11.51 Type 2 diabetes mellitus with diabetic peripheral angiopathy without gangrene; Z87.891 Personal history of nicotine dependence; Z88.1 Allergy status to other antibiotic agents; Z88.8 Allergy status to other drugs, medicaments and biological substances; E78.5 Hyperlipidemia, unspecified; Z68.41 Body mass index [BMI] 40.0-44.9, adult; Z79.899 Other long term (current) drug therapy; Z79.02 Long term (current) use of antithrombotics/antiplatelets; Z79.84 Long term (current) use of oral hypoglycemic drugs | CPT/HCPCS: G0463 ==

== ENCOUNTER 2020-07-06 00:06 | Day surgery (SDC) | payer OTHER | END 2020-07-06 22:52 | disposition home or self-care (01) | LOC: WOUND 00:06 | DX: E11.622 Type 2 diabetes mellitus with other skin ulcer (principal); L97.922 Non-pressure chronic ulcer of unspecified part of left lower leg with fat layer exposed; L97.812 Non-pressure chronic ulcer of other part of right lower leg with fat layer exposed; I87.2 Venous insufficiency (chronic) (peripheral); Z79.84 Long term (current) use of oral hypoglycemic drugs ==

== ENCOUNTER 2020-07-19 00:26 | Day surgery (SDC) | payer OTHER ==
[2020-08-23] MEDS ORDERED: Bactrim Ds Tab1 EACH PO (14:10)
== END 2020-07-19 22:50 | disposition home or self-care (01) ==
LOC: WOUND 00:26
DX: E11.622 Type 2 diabetes mellitus with other skin ulcer (principal); L97.812 Non-pressure chronic ulcer of other part of right lower leg with fat layer exposed; L97.822 Non-pressure chronic ulcer of other part of left lower leg with fat layer exposed; E11.52 Type 2 diabetes mellitus with diabetic peripheral angiopathy with gangrene; I96 Gangrene, not elsewhere classified; G47.30 Sleep apnea, unspecified; E03.9 Hypothyroidism, unspecified; M10.9 Gout, unspecified; E78.5 Hyperlipidemia, unspecified; I87.2 Venous insufficiency (chronic) (peripheral); E11.36 Type 2 diabetes mellitus with diabetic cataract; H26.9 Unspecified cataract; J32.8 Other chronic sinusitis; J44.9 Chronic obstructive pulmonary disease, unspecified; I25.10 Atherosclerotic heart disease of native coronary artery without angina pectoris; I12.0 Hypertensive chronic kidney disease with stage 5 chronic kidney disease or end stage renal disease; E11.22 Type 2 diabetes mellitus with diabetic chronic kidney disease; N18.6 End stage renal disease; D63.1 Anemia in chronic kidney disease; E66.9 Obesity, unspecified; Z68.41 Body mass index [BMI] 40.0-44.9, adult; Z88.1 Allergy status to other antibiotic agents; Z88.8 Allergy status to other drugs, medicaments and biological substances; Z79.02 Long term (current) use of antithrombotics/antiplatelets; Z79.84 Long term (current) use of oral hypoglycemic drugs; Z79.51 Long term (current) use of inhaled steroids; Z79.899 Other long term (current) drug therapy; Z87.891 Personal history of nicotine dependence; Z99.89 Dependence on other enabling machines and devices

== ENCOUNTER 2020-07-26 00:20 | Day surgery (SDC) | payer OTHER ==
[2020-08-23] MEDS ORDERED: Bactrim Ds Tab1 EACH PO (14:10)
== END 2020-07-26 23:13 | disposition home or self-care (01) ==
LOC: WOUND 00:20
DX: E11.622 Type 2 diabetes mellitus with other skin ulcer (principal); L97.812 Non-pressure chronic ulcer of other part of right lower leg with fat layer exposed; L97.822 Non-pressure chronic ulcer of other part of left lower leg with fat layer exposed; I87.2 Venous insufficiency (chronic) (peripheral); E11.52 Type 2 diabetes mellitus with diabetic peripheral angiopathy with gangrene; I96 Gangrene, not elsewhere classified; G47.30 Sleep apnea, unspecified; E03.9 Hypothyroidism, unspecified; I12.0 Hypertensive chronic kidney disease with stage 5 chronic kidney disease or end stage renal disease; E11.22 Type 2 diabetes mellitus with diabetic chronic kidney disease; N18.6 End stage renal disease; D63.1 Anemia in chronic kidney disease; M10.9 Gout, unspecified; E78.5 Hyperlipidemia, unspecified; E11.36 Type 2 diabetes mellitus with diabetic cataract; H26.9 Unspecified cataract; J32.8 Other chronic sinusitis; I25.10 Atherosclerotic heart disease of native coronary artery without angina pectoris; J44.9 Chronic obstructive pulmonary disease, unspecified; E66.9 Obesity, unspecified; Z68.41 Body mass index [BMI] 40.0-44.9, adult; Z87.891 Personal history of nicotine dependence; Z88.1 Allergy status to other antibiotic agents; Z79.02 Long term (current) use of antithrombotics/antiplatelets; Z79.84 Long term (current) use of oral hypoglycemic drugs; Z79.51 Long term (current) use of inhaled steroids; Z79.899 Other long term (current) drug therapy; Z88.8 Allergy status to other drugs, medicaments and biological substances; Z99.89 Dependence on other enabling machines and devices
CPT/HCPCS: 87070; 87075; 87077; 87186; 87205; G0463

== ENCOUNTER 2020-07-31 00:38 | Day surgery (SDC) | payer OTHER | END 2020-07-31 22:40 | disposition home or self-care (01) | LOC: WOUND 00:38 | DX: E11.622 Type 2 diabetes mellitus with other skin ulcer (principal); L97.922 Non-pressure chronic ulcer of unspecified part of left lower leg with fat layer exposed; L97.812 Non-pressure chronic ulcer of other part of right lower leg with fat layer exposed; I87.2 Venous insufficiency (chronic) (peripheral); Z79.02 Long term (current) use of antithrombotics/antiplatelets; Z79.899 Other long term (current) drug therapy; Z79.84 Long term (current) use of oral hypoglycemic drugs | CPT/HCPCS: G0463 ==

== ENCOUNTER 2020-08-17 00:47 | Day surgery (SDC) | payer OTHER ==
[2020-08-23] MEDS ORDERED: Bactrim Ds Tab1 EACH PO (14:10)
== END 2020-08-17 12:00 | disposition home or self-care (01) ==
LOC: WOUND 00:47
DX: E11.622 Type 2 diabetes mellitus with other skin ulcer (principal); L97.922 Non-pressure chronic ulcer of unspecified part of left lower leg with fat layer exposed; L97.812 Non-pressure chronic ulcer of other part of right lower leg with fat layer exposed; I87.2 Venous insufficiency (chronic) (peripheral); E66.9 Obesity, unspecified; I10 Essential (primary) hypertension; E03.9 Hypothyroidism, unspecified; E78.5 Hyperlipidemia, unspecified; Z87.891 Personal history of nicotine dependence; Z68.41 Body mass index [BMI] 40.0-44.9, adult; Z79.02 Long term (current) use of antithrombotics/antiplatelets; Z79.899 Other long term (current) drug therapy

== ENCOUNTER 2020-08-23 10:39 | Emergency (ER) | payer OTHER | END 2020-08-23 15:18 | disposition home or self-care (01) | LOC: ER 10:39 | DX: L03.115 Cellulitis of right lower limb (principal); E03.9 Hypothyroidism, unspecified; I12.9 Hypertensive chronic kidney disease with stage 1 through stage 4 chronic kidney disease, or unspecified chronic kidney disease; I50.9 Heart failure, unspecified; E11.22 Type 2 diabetes mellitus with diabetic chronic kidney disease; Z88.1 Allergy status to other antibiotic agents; Z88.8 Allergy status to other drugs, medicaments and biological substances; Z79.02 Long term (current) use of antithrombotics/antiplatelets; Z79.899 Other long term (current) drug therapy; Z79.84 Long term (current) use of oral hypoglycemic drugs; Z79.51 Long term (current) use of inhaled steroids; Z87.891 Personal history of nicotine dependence ==

== ENCOUNTER 2020-08-31 02:06 | Day surgery (SDC) | payer OTHER ==
[~2020-08-31 02:06] MED LIST changes: +Bactrim Ds Tab1 EACH PO
== END 2020-08-31 22:40 | disposition home or self-care (01) ==
LOC: WOUND 02:06
DX: E11.622 Type 2 diabetes mellitus with other skin ulcer (principal); L97.922 Non-pressure chronic ulcer of unspecified part of left lower leg with fat layer exposed; L97.812 Non-pressure chronic ulcer of other part of right lower leg with fat layer exposed; I87.2 Venous insufficiency (chronic) (peripheral); E66.9 Obesity, unspecified; I10 Essential (primary) hypertension; J45.909 Unspecified asthma, uncomplicated; Z68.41 Body mass index [BMI] 40.0-44.9, adult; Z79.899 Other long term (current) drug therapy; Z79.84 Long term (current) use of oral hypoglycemic drugs

== ENCOUNTER 2020-09-20 00:19 | Day surgery (SDC) | payer OTHER ==
[~2020-09-20 00:19] MED LIST changes: +DOCU100 PO; +DULERA 200 MCG-13 GM INH; +EUTHYROX125 MCG PO; +FISH OIL 1,2001 EAC7 PO; +MIRALAX17 GM PO; +NYSTOP15 GM TOP; +SULTRIDS PO; +TRAM50 PO
== END 2020-09-20 23:20 | disposition home or self-care (01) ==
LOC: WOUND 00:19
DX: E11.622 Type 2 diabetes mellitus with other skin ulcer (principal); L97.822 Non-pressure chronic ulcer of other part of left lower leg with fat layer exposed; L97.812 Non-pressure chronic ulcer of other part of right lower leg with fat layer exposed; I96 Gangrene, not elsewhere classified; I87.2 Venous insufficiency (chronic) (peripheral); G47.30 Sleep apnea, unspecified; E03.9 Hypothyroidism, unspecified; M10.9 Gout, unspecified; I12.0 Hypertensive chronic kidney disease with stage 5 chronic kidney disease or end stage renal disease; E11.22 Type 2 diabetes mellitus with diabetic chronic kidney disease; N18.6 End stage renal disease; M19.90 Unspecified osteoarthritis, unspecified site; E11.52 Type 2 diabetes mellitus with diabetic peripheral angiopathy with gangrene; J32.9 Chronic sinusitis, unspecified; E11.36 Type 2 diabetes mellitus with diabetic cataract; H26.9 Unspecified cataract; J44.9 Chronic obstructive pulmonary disease, unspecified; I25.10 Atherosclerotic heart disease of native coronary artery without angina pectoris; E78.5 Hyperlipidemia, unspecified; E66.9 Obesity, unspecified; Z68.41 Body mass index [BMI] 40.0-44.9, adult; Z87.891 Personal history of nicotine dependence; Z95.2 Presence of prosthetic heart valve; Z79.02 Long term (current) use of antithrombotics/antiplatelets; Z79.84 Long term (current) use of oral hypoglycemic drugs; Z79.899 Other long term (current) drug therapy; Z88.1 Allergy status to other antibiotic agents; Z88.8 Allergy status to other drugs, medicaments and biological substances; Z51.5 Encounter for palliative care

== ENCOUNTER 2020-09-27 08:43 | Day surgery (SDC) | payer OTHER | END 2020-09-27 23:37 | disposition home or self-care (01) | LOC: WOUND 08:43 | DX: E11.622 Type 2 diabetes mellitus with other skin ulcer (principal); L97.812 Non-pressure chronic ulcer of other part of right lower leg with fat layer exposed; L97.822 Non-pressure chronic ulcer of other part of left lower leg with fat layer exposed; E11.52 Type 2 diabetes mellitus with diabetic peripheral angiopathy with gangrene; I96 Gangrene, not elsewhere classified; S61.409A Unspecified open wound of unspecified hand, initial encounter; G47.30 Sleep apnea, unspecified; J45.909 Unspecified asthma, uncomplicated; E03.9 Hypothyroidism, unspecified; M10.9 Gout, unspecified; E78.5 Hyperlipidemia, unspecified; I12.9 Hypertensive chronic kidney disease with stage 1 through stage 4 chronic kidney disease, or unspecified chronic kidney disease; E11.22 Type 2 diabetes mellitus with diabetic chronic kidney disease; N18.9 Chronic kidney disease, unspecified; E66.9 Obesity, unspecified; Z68.41 Body mass index [BMI] 40.0-44.9, adult; Z87.891 Personal history of nicotine dependence; Z95.2 Presence of prosthetic heart valve; Z88.1 Allergy status to other antibiotic agents; Z88.8 Allergy status to other drugs, medicaments and biological substances; Z79.02 Long term (current) use of antithrombotics/antiplatelets; Z79.84 Long term (current) use of oral hypoglycemic drugs; Z79.899 Other long term (current) drug therapy; Z51.5 Encounter for palliative care; X58.XXXA Exposure to other specified factors, initial encounter ==

== ENCOUNTER 2020-10-04 00:24 | Day surgery (SDC) | payer OTHER | END 2020-10-04 23:18 | disposition home or self-care (01) | LOC: WOUND 00:24 | DX: E11.622 Type 2 diabetes mellitus with other skin ulcer (principal); L97.812 Non-pressure chronic ulcer of other part of right lower leg with fat layer exposed; L97.822 Non-pressure chronic ulcer of other part of left lower leg with fat layer exposed; E11.621 Type 2 diabetes mellitus with foot ulcer; L97.512 Non-pressure chronic ulcer of other part of right foot with fat layer exposed; S61.412D Laceration without foreign body of left hand, subsequent encounter; E11.52 Type 2 diabetes mellitus with diabetic peripheral angiopathy with gangrene; I96 Gangrene, not elsewhere classified; I12.0 Hypertensive chronic kidney disease with stage 5 chronic kidney disease or end stage renal disease; E11.22 Type 2 diabetes mellitus with diabetic chronic kidney disease; N18.6 End stage renal disease; D63.1 Anemia in chronic kidney disease; G47.30 Sleep apnea, unspecified; E03.9 Hypothyroidism, unspecified; M10.9 Gout, unspecified; E78.5 Hyperlipidemia, unspecified; I87.2 Venous insufficiency (chronic) (peripheral); E11.36 Type 2 diabetes mellitus with diabetic cataract; H26.9 Unspecified cataract; J32.9 Chronic sinusitis, unspecified; J44.9 Chronic obstructive pulmonary disease, unspecified; I25.10 Atherosclerotic heart disease of native coronary artery without angina pectoris; M19.90 Unspecified osteoarthritis, unspecified site; E66.9 Obesity, unspecified; Z68.41 Body mass index [BMI] 40.0-44.9, adult; Z88.1 Allergy status to other antibiotic agents; Z88.8 Allergy status to other drugs, medicaments and biological substances; Z79.02 Long term (current) use of antithrombotics/antiplatelets; Z79.84 Long term (current) use of oral hypoglycemic drugs; Z79.899 Other long term (current) drug therapy; Z87.891 Personal history of nicotine dependence; Z51.5 Encounter for palliative care; X58.XXXD Exposure to other specified factors, subsequent encounter | CPT/HCPCS: 87070; 87075; 87077; 87186; 87205 ==

== ENCOUNTER 2020-10-12 00:52 | Day surgery (SDC) | payer OTHER | END 2020-10-12 23:05 | disposition home or self-care (01) | LOC: WOUND 00:52 | DX: E11.622 Type 2 diabetes mellitus with other skin ulcer (principal); L97.822 Non-pressure chronic ulcer of other part of left lower leg with fat layer exposed; L97.812 Non-pressure chronic ulcer of other part of right lower leg with fat layer exposed; E11.621 Type 2 diabetes mellitus with foot ulcer; L97.511 Non-pressure chronic ulcer of other part of right foot limited to breakdown of skin; E11.52 Type 2 diabetes mellitus with diabetic peripheral angiopathy with gangrene; I96 Gangrene, not elsewhere classified; I87.2 Venous insufficiency (chronic) (peripheral); S61.412D Laceration without foreign body of left hand, subsequent encounter; G47.30 Sleep apnea, unspecified; M10.9 Gout, unspecified; E78.5 Hyperlipidemia, unspecified; E11.36 Type 2 diabetes mellitus with diabetic cataract; H26.9 Unspecified cataract; J32.9 Chronic sinusitis, unspecified; J44.9 Chronic obstructive pulmonary disease, unspecified; I12.0 Hypertensive chronic kidney disease with stage 5 chronic kidney disease or end stage renal disease; E11.22 Type 2 diabetes mellitus with diabetic chronic kidney disease; N18.6 End stage renal disease; D63.1 Anemia in chronic kidney disease; M19.90 Unspecified osteoarthritis, unspecified site; I25.10 Atherosclerotic heart disease of native coronary artery without angina pectoris; E66.9 Obesity, unspecified; Z68.41 Body mass index [BMI] 40.0-44.9, adult; Z88.1 Allergy status to other antibiotic agents; Z88.8 Allergy status to other drugs, medicaments and biological substances; Z79.02 Long term (current) use of antithrombotics/antiplatelets; Z79.84 Long term (current) use of oral hypoglycemic drugs; Z79.899 Other long term (current) drug therapy; Z87.891 Personal history of nicotine dependence; Z95.2 Presence of prosthetic heart valve; Z51.5 Encounter for palliative care; X58.XXXD Exposure to other specified factors, subsequent encounter | CPT/HCPCS: 87071; 87075; 87205 ==

== ENCOUNTER 2020-10-22 01:34 | Day surgery (SDC) | payer OTHER ==
[2020-10-22] MEDS ORDERED: DULERA 100 MCG/13 GM INH (13:28)
[2020-10-22] MEDS ORDERED: DULO60 PO (13:28)
[2020-10-22] MEDS ORDERED: AMIT10 PO (13:30)
[2020-10-22] MEDS ORDERED: GLIM2 PO (13:31)
[2020-10-22] MEDS ORDERED: Doxycycline Mo100 M1 PO (13:32)
== END 2020-10-22 22:56 | disposition home or self-care (01) ==
LOC: WOUND 01:34
DX: E11.622 Type 2 diabetes mellitus with other skin ulcer (principal); L97.922 Non-pressure chronic ulcer of unspecified part of left lower leg with fat layer exposed; L97.812 Non-pressure chronic ulcer of other part of right lower leg with fat layer exposed; I87.2 Venous insufficiency (chronic) (peripheral); S61.412D Laceration without foreign body of left hand, subsequent encounter; E66.9 Obesity, unspecified; E11.22 Type 2 diabetes mellitus with diabetic chronic kidney disease; I12.9 Hypertensive chronic kidney disease with stage 1 through stage 4 chronic kidney disease, or unspecified chronic kidney disease; N18.9 Chronic kidney disease, unspecified; J45.909 Unspecified asthma, uncomplicated; E78.5 Hyperlipidemia, unspecified; Z87.891 Personal history of nicotine dependence; Z68.41 Body mass index [BMI] 40.0-44.9, adult; Z79.899 Other long term (current) drug therapy; Z79.02 Long term (current) use of antithrombotics/antiplatelets; Z79.84 Long term (current) use of oral hypoglycemic drugs

== ENCOUNTER 2020-10-23 06:27 | Day surgery (SDC) | payer OTHER ==
[~2020-10-23] VITALS: Ht 160 cm; Wt 101.0 kg
[~2020-10-23 06:27] MED LIST changes: +AMIT10 PO; +DULERA 100 MCG/13 GM INH; +Doxycycline Mo100 M1 PO
--- NOTE | 2020-10-23 09:50 | NUR ---
PT TO RECOVERY ROOM POST PROCEDURE. PT AWAKE AND CONVERSING APPROPRIATELY; DENIES PAIN POST PROCEDURE. MONITOR SR 70'S, B/P 142/59, AFEBRILE, SPO2 87% RA-PLACED ON 2L NC. L GROIN SITE NO SWELLING/HEMATOMA, FREEDOM AND TEGADERM DRSG INTACT. BLE: DOPPLER PULSES X 4.
--- NOTE | 2020-10-23 12:45 | NUR ---
PT HOB ELEVATED AND ATE LUNCH, SITE UNCHANGED.
--- NOTE | 2020-10-23 13:10 | NUR ---
PT AMB TO BATHROOM WITH CANE, GAIT STEADY; SITE UNCHANGED WITH ACTIVITY. PT ASSISTED GETTING DRESSED, SITE UNCHANGED; IV REMOVED-CANNULA INTACT.
--- NOTE | 2020-10-23 13:15 | NUR ---
PT RECEIVED DISCHARGE INSTRUCTIONS, MED LIST AND AFTER CARE INSTRUCTIONS; VERBALIZED GOOD UNDERSTANDING. PT LEFT FACILITY VIA W/C, CONDITION STABLE.
== END 2020-10-23 13:15 | disposition home or self-care (01) ==
LOC: MHTC 06:27
DX: E11.51 Type 2 diabetes mellitus with diabetic peripheral angiopathy without gangrene (principal); L97.829 Non-pressure chronic ulcer of other part of left lower leg with unspecified severity; I70.248 Atherosclerosis of native arteries of left leg with ulceration of other part of lower leg; I12.9 Hypertensive chronic kidney disease with stage 1 through stage 4 chronic kidney disease, or unspecified chronic kidney disease; E11.22 Type 2 diabetes mellitus with diabetic chronic kidney disease; N18.9 Chronic kidney disease, unspecified; E03.9 Hypothyroidism, unspecified; G47.30 Sleep apnea, unspecified; J45.909 Unspecified asthma, uncomplicated; E78.5 Hyperlipidemia, unspecified; Z96.653 Presence of artificial knee joint, bilateral; Z79.02 Long term (current) use of antithrombotics/antiplatelets; Z79.84 Long term (current) use of oral hypoglycemic drugs; Z79.899 Other long term (current) drug therapy; Z87.891 Personal history of nicotine dependence; Z88.1 Allergy status to other antibiotic agents; Z88.8 Allergy status to other drugs, medicaments and biological substances
CPT/HCPCS: 37227; 75716; 75774; 82947; 85347; 99152; 99153; C1714; C1725; C1760; C1769; C1874; C1884; C1887; C1894; C2623; J1644; J2250; J3010; J7030; J7040; J7050; Q9967

== ENCOUNTER 2020-10-29 00:33 | Day surgery (SDC) | payer OTHER | END 2020-10-29 22:57 | disposition home or self-care (01) | LOC: WOUND 00:33 | DX: E11.622 Type 2 diabetes mellitus with other skin ulcer (principal); L97.922 Non-pressure chronic ulcer of unspecified part of left lower leg with fat layer exposed; L97.812 Non-pressure chronic ulcer of other part of right lower leg with fat layer exposed; I87.2 Venous insufficiency (chronic) (peripheral); S61.412D Laceration without foreign body of left hand, subsequent encounter; E66.9 Obesity, unspecified; E11.22 Type 2 diabetes mellitus with diabetic chronic kidney disease; I12.9 Hypertensive chronic kidney disease with stage 1 through stage 4 chronic kidney disease, or unspecified chronic kidney disease; N18.9 Chronic kidney disease, unspecified; Z68.41 Body mass index [BMI] 40.0-44.9, adult; Z79.899 Other long term (current) drug therapy; Z79.02 Long term (current) use of antithrombotics/antiplatelets; Z79.84 Long term (current) use of oral hypoglycemic drugs ==

== ENCOUNTER → 2020-10-31 | Outpatient (CLI) | payer OTHER | END | disposition home or self-care (01) | LOC: LAB HH 15:16 | DX: L97.812 Non-pressure chronic ulcer of other part of right lower leg with fat layer exposed (principal) | CPT/HCPCS: 87070; 87075; 87077; 87186; 87205 ==

== ENCOUNTER → 2020-11-02 | Outpatient (CLI) | payer OTHER ==
[2020-11-02 12:57] LABS: Albumin, Blood 3.4 g/dL (3.4-5.0); Prealbumin, Blood 22.3 mg/dL (20.0-40.0)
== END | disposition home or self-care (01) ==
LOC: LAB HH 11:31
PROVIDERS: Surgery
DX: E11.622 Type 2 diabetes mellitus with other skin ulcer (principal); L98.499 Non-pressure chronic ulcer of skin of other sites with unspecified severity
CPT/HCPCS: 82040; 83036; 84134

== ENCOUNTER 2020-11-05 00:23 | Day surgery (SDC) | payer OTHER | END 2020-11-05 22:55 | disposition home or self-care (01) | LOC: WOUND 00:23 | DX: E11.622 Type 2 diabetes mellitus with other skin ulcer (principal); L97.822 Non-pressure chronic ulcer of other part of left lower leg with fat layer exposed; L97.812 Non-pressure chronic ulcer of other part of right lower leg with fat layer exposed; E11.52 Type 2 diabetes mellitus with diabetic peripheral angiopathy with gangrene; I96 Gangrene, not elsewhere classified; I87.2 Venous insufficiency (chronic) (peripheral); G47.30 Sleep apnea, unspecified; E03.9 Hypothyroidism, unspecified; M10.9 Gout, unspecified; E78.5 Hyperlipidemia, unspecified; E11.36 Type 2 diabetes mellitus with diabetic cataract; H26.9 Unspecified cataract; J32.9 Chronic sinusitis, unspecified; J44.9 Chronic obstructive pulmonary disease, unspecified; I25.10 Atherosclerotic heart disease of native coronary artery without angina pectoris; I12.0 Hypertensive chronic kidney disease with stage 5 chronic kidney disease or end stage renal disease; E11.22 Type 2 diabetes mellitus with diabetic chronic kidney disease; N18.6 End stage renal disease; M19.90 Unspecified osteoarthritis, unspecified site; E66.9 Obesity, unspecified; Z68.41 Body mass index [BMI] 40.0-44.9, adult; Z87.891 Personal history of nicotine dependence; Z88.1 Allergy status to other antibiotic agents; Z88.8 Allergy status to other drugs, medicaments and biological substances; Z79.84 Long term (current) use of oral hypoglycemic drugs; Z79.899 Other long term (current) drug therapy; Z79.02 Long term (current) use of antithrombotics/antiplatelets; Z95.2 Presence of prosthetic heart valve ==

== ENCOUNTER 2020-11-12 00:31 | Day surgery (SDC) | payer OTHER | END 2020-11-12 23:49 | disposition home or self-care (01) | LOC: WOUND 00:31 | DX: E11.622 Type 2 diabetes mellitus with other skin ulcer (principal); L97.922 Non-pressure chronic ulcer of unspecified part of left lower leg with fat layer exposed; L97.812 Non-pressure chronic ulcer of other part of right lower leg with fat layer exposed; I87.2 Venous insufficiency (chronic) (peripheral); E11.22 Type 2 diabetes mellitus with diabetic chronic kidney disease; I12.9 Hypertensive chronic kidney disease with stage 1 through stage 4 chronic kidney disease, or unspecified chronic kidney disease; S61.412D Laceration without foreign body of left hand, subsequent encounter; E66.9 Obesity, unspecified; N18.9 Chronic kidney disease, unspecified; F17.210 Nicotine dependence, cigarettes, uncomplicated; E78.5 Hyperlipidemia, unspecified; J45.909 Unspecified asthma, uncomplicated; Z68.42 Body mass index [BMI] 45.0-49.9, adult; Z79.02 Long term (current) use of antithrombotics/antiplatelets; Z79.899 Other long term (current) drug therapy; Z79.84 Long term (current) use of oral hypoglycemic drugs ==

== ENCOUNTER 2020-11-12 10:18 | Day surgery (SDC) | payer OTHER | END 2020-11-12 23:49 | disposition home or self-care (01) | LOC: HBO 10:18 | DX: E11.622 Type 2 diabetes mellitus with other skin ulcer (principal); L97.922 Non-pressure chronic ulcer of unspecified part of left lower leg with fat layer exposed; L97.812 Non-pressure chronic ulcer of other part of right lower leg with fat layer exposed; I87.2 Venous insufficiency (chronic) (peripheral); S61.412D Laceration without foreign body of left hand, subsequent encounter; Z79.899 Other long term (current) drug therapy; Z79.02 Long term (current) use of antithrombotics/antiplatelets; Z79.84 Long term (current) use of oral hypoglycemic drugs | CPT/HCPCS: 82947; G0277 ==

== ENCOUNTER 2020-11-13 00:37 | Day surgery (SDC) | payer OTHER | END 2020-11-13 23:00 | disposition home or self-care (01) | LOC: HBO 00:37 | DX: E11.622 Type 2 diabetes mellitus with other skin ulcer (principal); L97.812 Non-pressure chronic ulcer of other part of right lower leg with fat layer exposed; L97.822 Non-pressure chronic ulcer of other part of left lower leg with fat layer exposed; I87.2 Venous insufficiency (chronic) (peripheral); S61.412D Laceration without foreign body of left hand, subsequent encounter; Z79.02 Long term (current) use of antithrombotics/antiplatelets; Z79.84 Long term (current) use of oral hypoglycemic drugs; Z79.899 Other long term (current) drug therapy; Z88.1 Allergy status to other antibiotic agents; Z88.8 Allergy status to other drugs, medicaments and biological substances; X58.XXXD Exposure to other specified factors, subsequent encounter | CPT/HCPCS: 82947; G0277 ==

== ENCOUNTER 2020-11-14 06:38 | Day surgery (SDC) | payer OTHER | END 2020-11-14 22:52 | disposition home or self-care (01) | LOC: HBO 06:38 | DX: E11.622 Type 2 diabetes mellitus with other skin ulcer (principal); L97.812 Non-pressure chronic ulcer of other part of right lower leg with fat layer exposed; L97.822 Non-pressure chronic ulcer of other part of left lower leg with fat layer exposed; I87.2 Venous insufficiency (chronic) (peripheral); S61.412D Laceration without foreign body of left hand, subsequent encounter; Z79.84 Long term (current) use of oral hypoglycemic drugs; Z79.899 Other long term (current) drug therapy; Z88.1 Allergy status to other antibiotic agents; Z88.8 Allergy status to other drugs, medicaments and biological substances; X58.XXXD Exposure to other specified factors, subsequent encounter | CPT/HCPCS: 82947; G0277 ==

== ENCOUNTER 2020-11-19 00:24 | Day surgery (SDC) | payer OTHER | END 2020-11-19 23:15 | disposition home or self-care (01) | LOC: HBO 00:24 | DX: E11.622 Type 2 diabetes mellitus with other skin ulcer (principal); L97.812 Non-pressure chronic ulcer of other part of right lower leg with fat layer exposed; L97.822 Non-pressure chronic ulcer of other part of left lower leg with fat layer exposed; I87.2 Venous insufficiency (chronic) (peripheral); S61.412D Laceration without foreign body of left hand, subsequent encounter; Z79.899 Other long term (current) drug therapy; Z79.84 Long term (current) use of oral hypoglycemic drugs; Z20.828 Contact with and (suspected) exposure to other viral communicable diseases; Z88.1 Allergy status to other antibiotic agents; Z88.8 Allergy status to other drugs, medicaments and biological substances; X58.XXXD Exposure to other specified factors, subsequent encounter | CPT/HCPCS: 82947; G0277 ==

== ENCOUNTER 2020-11-20 00:31 | Day surgery (SDC) | payer OTHER | END 2020-11-20 22:58 | disposition home or self-care (01) | LOC: HBO 00:31 | DX: E11.622 Type 2 diabetes mellitus with other skin ulcer (principal); L97.812 Non-pressure chronic ulcer of other part of right lower leg with fat layer exposed; L97.822 Non-pressure chronic ulcer of other part of left lower leg with fat layer exposed; I87.2 Venous insufficiency (chronic) (peripheral); S61.412D Laceration without foreign body of left hand, subsequent encounter; Z79.899 Other long term (current) drug therapy; Z79.84 Long term (current) use of oral hypoglycemic drugs; Z20.828 Contact with and (suspected) exposure to other viral communicable diseases; Z88.1 Allergy status to other antibiotic agents; Z88.8 Allergy status to other drugs, medicaments and biological substances; X58.XXXD Exposure to other specified factors, subsequent encounter | CPT/HCPCS: 82947; G0277 ==

== ENCOUNTER 2020-11-20 00:33 | Day surgery (SDC) | payer OTHER | END 2020-11-21 23:15 | disposition home or self-care (01) | LOC: WOUND 00:33 | DX: E11.622 Type 2 diabetes mellitus with other skin ulcer (principal); L97.812 Non-pressure chronic ulcer of other part of right lower leg with fat layer exposed; L97.822 Non-pressure chronic ulcer of other part of left lower leg with fat layer exposed; E11.52 Type 2 diabetes mellitus with diabetic peripheral angiopathy with gangrene; I96 Gangrene, not elsewhere classified; E66.9 Obesity, unspecified; G47.30 Sleep apnea, unspecified; E03.9 Hypothyroidism, unspecified; F17.210 Nicotine dependence, cigarettes, uncomplicated; M10.9 Gout, unspecified; E11.36 Type 2 diabetes mellitus with diabetic cataract; H26.9 Unspecified cataract; D64.9 Anemia, unspecified; J44.9 Chronic obstructive pulmonary disease, unspecified; I25.10 Atherosclerotic heart disease of native coronary artery without angina pectoris; I12.0 Hypertensive chronic kidney disease with stage 5 chronic kidney disease or end stage renal disease; E11.22 Type 2 diabetes mellitus with diabetic chronic kidney disease; N18.6 End stage renal disease; E78.5 Hyperlipidemia, unspecified; Z88.1 Allergy status to other antibiotic agents; Z95.2 Presence of prosthetic heart valve; Z88.8 Allergy status to other drugs, medicaments and biological substances; Z79.02 Long term (current) use of antithrombotics/antiplatelets; Z79.84 Long term (current) use of oral hypoglycemic drugs; Z79.899 Other long term (current) drug therapy; Z20.828 Contact with and (suspected) exposure to other viral communicable diseases; Z68.41 Body mass index [BMI] 40.0-44.9, adult ==

== ENCOUNTER 2020-11-21 01:22 | Day surgery (SDC) | payer OTHER | END 2020-11-21 23:15 | disposition home or self-care (01) | LOC: HBO 01:22 | DX: E11.622 Type 2 diabetes mellitus with other skin ulcer (principal); L97.812 Non-pressure chronic ulcer of other part of right lower leg with fat layer exposed; L97.822 Non-pressure chronic ulcer of other part of left lower leg with fat layer exposed; I87.2 Venous insufficiency (chronic) (peripheral); Z79.84 Long term (current) use of oral hypoglycemic drugs; Z79.899 Other long term (current) drug therapy; Z88.1 Allergy status to other antibiotic agents; Z88.8 Allergy status to other drugs, medicaments and biological substances; Z20.828 Contact with and (suspected) exposure to other viral communicable diseases | CPT/HCPCS: 82947; G0277 ==

== ENCOUNTER 2020-11-22 00:52 | Day surgery (SDC) | payer OTHER | END 2020-11-22 23:21 | disposition home or self-care (01) | LOC: HBO 00:52 | DX: E11.622 Type 2 diabetes mellitus with other skin ulcer (principal); L97.812 Non-pressure chronic ulcer of other part of right lower leg with fat layer exposed; L97.822 Non-pressure chronic ulcer of other part of left lower leg with fat layer exposed; I87.2 Venous insufficiency (chronic) (peripheral); S61.412D Laceration without foreign body of left hand, subsequent encounter; Z79.02 Long term (current) use of antithrombotics/antiplatelets; Z79.899 Other long term (current) drug therapy; Z79.84 Long term (current) use of oral hypoglycemic drugs; Z20.828 Contact with and (suspected) exposure to other viral communicable diseases; Z88.1 Allergy status to other antibiotic agents; Z88.8 Allergy status to other drugs, medicaments and biological substances; X58.XXXD Exposure to other specified factors, subsequent encounter | CPT/HCPCS: 82947; G0277 ==

== ENCOUNTER 2020-11-26 00:49 | Day surgery (SDC) | payer OTHER | END 2020-11-26 22:54 | disposition home or self-care (01) | LOC: WOUND 00:49 | DX: E11.622 Type 2 diabetes mellitus with other skin ulcer (principal); L97.812 Non-pressure chronic ulcer of other part of right lower leg with fat layer exposed; L97.822 Non-pressure chronic ulcer of other part of left lower leg with fat layer exposed; E11.52 Type 2 diabetes mellitus with diabetic peripheral angiopathy with gangrene; I96 Gangrene, not elsewhere classified; I12.0 Hypertensive chronic kidney disease with stage 5 chronic kidney disease or end stage renal disease; E11.22 Type 2 diabetes mellitus with diabetic chronic kidney disease; N18.6 End stage renal disease; E66.9 Obesity, unspecified; E03.9 Hypothyroidism, unspecified; G47.30 Sleep apnea, unspecified; J44.9 Chronic obstructive pulmonary disease, unspecified; E11.36 Type 2 diabetes mellitus with diabetic cataract; H26.9 Unspecified cataract; I25.10 Atherosclerotic heart disease of native coronary artery without angina pectoris; M10.9 Gout, unspecified; M19.90 Unspecified osteoarthritis, unspecified site; Z95.2 Presence of prosthetic heart valve; Z20.828 Contact with and (suspected) exposure to other viral communicable diseases; Z88.1 Allergy status to other antibiotic agents; Z88.8 Allergy status to other drugs, medicaments and biological substances; Z79.84 Long term (current) use of oral hypoglycemic drugs; Z79.899 Other long term (current) drug therapy; Z87.891 Personal history of nicotine dependence; Z68.41 Body mass index [BMI] 40.0-44.9, adult ==

== ENCOUNTER 2020-11-28 00:38 | Day surgery (SDC) | payer OTHER ==
[~2020-11-28 00:38] MED LIST changes: -ALBU90OI INH; -CLOP75 PO; -EUTHYROX125 MCG PO; -FISH OIL 1,2001 EAC7 PO; -GLUC500 PO
[2021-03-05] MEDS ORDERED: LOSA50 PO (11:36)
[2021-03-05] MEDS ORDERED: PREG50 PO (11:37)
[2021-03-05] MEDS ORDERED: LEVFLO500 PO (11:37)
[2021-03-25] MEDS ORDERED: Bactrim Ds Tab1 EACH PO ×2 (10:42→14:53)
== END 2020-11-28 22:46 | disposition home or self-care (01) ==
LOC: HBO 00:38
DX: E11.622 Type 2 diabetes mellitus with other skin ulcer (principal); L97.922 Non-pressure chronic ulcer of unspecified part of left lower leg with fat layer exposed; L97.812 Non-pressure chronic ulcer of other part of right lower leg with fat layer exposed; S61.412D Laceration without foreign body of left hand, subsequent encounter; I87.2 Venous insufficiency (chronic) (peripheral); Z88.1 Allergy status to other antibiotic agents; Z88.2 Allergy status to sulfonamides; Z88.8 Allergy status to other drugs, medicaments and biological substances; X58.XXXD Exposure to other specified factors, subsequent encounter
CPT/HCPCS: 82947; G0277

== ENCOUNTER 2020-11-29 00:17 | Day surgery (SDC) | payer OTHER ==
[2021-03-05] MEDS ORDERED: LOSA50 PO (11:36)
[2021-03-05] MEDS ORDERED: LEVFLO500 PO (11:37)
[2021-03-05] MEDS ORDERED: PREG50 PO (11:37)
[2021-03-25] MEDS ORDERED: Bactrim Ds Tab1 EACH PO ×2 (10:42→14:53)
== END 2020-11-29 23:36 | disposition home or self-care (01) ==
LOC: HBO 00:17
DX: E11.622 Type 2 diabetes mellitus with other skin ulcer (principal); L97.822 Non-pressure chronic ulcer of other part of left lower leg with fat layer exposed; L97.812 Non-pressure chronic ulcer of other part of right lower leg with fat layer exposed; I87.2 Venous insufficiency (chronic) (peripheral); S61.412D Laceration without foreign body of left hand, subsequent encounter; Z79.02 Long term (current) use of antithrombotics/antiplatelets; Z79.84 Long term (current) use of oral hypoglycemic drugs; Z79.899 Other long term (current) drug therapy; Z20.822 Contact with and (suspected) exposure to COVID-19; Z88.1 Allergy status to other antibiotic agents; Z88.8 Allergy status to other drugs, medicaments and biological substances; X58.XXXD Exposure to other specified factors, subsequent encounter
CPT/HCPCS: 82947; G0277

== ENCOUNTER 2020-11-30 01:14 | Day surgery (SDC) | payer OTHER ==
[2021-03-05] MEDS ORDERED: LOSA50 PO (11:36)
[2021-03-05] MEDS ORDERED: LEVFLO500 PO (11:37)
[2021-03-05] MEDS ORDERED: PREG50 PO (11:37)
[2021-03-25] MEDS ORDERED: Bactrim Ds Tab1 EACH PO ×2 (10:42→14:53)
== END 2020-11-30 23:25 | disposition home or self-care (01) ==
LOC: HBO 01:14
DX: E11.622 Type 2 diabetes mellitus with other skin ulcer (principal); L97.922 Non-pressure chronic ulcer of unspecified part of left lower leg with fat layer exposed; L97.812 Non-pressure chronic ulcer of other part of right lower leg with fat layer exposed; I87.2 Venous insufficiency (chronic) (peripheral); S61.412D Laceration without foreign body of left hand, subsequent encounter
CPT/HCPCS: 82947; G0277

== ENCOUNTER 2020-12-03 00:37 | Day surgery (SDC) | payer OTHER ==
[2021-03-05] MEDS ORDERED: LOSA50 PO (11:36)
[2021-03-05] MEDS ORDERED: LEVFLO500 PO (11:37)
[2021-03-05] MEDS ORDERED: PREG50 PO (11:37)
[2021-03-25] MEDS ORDERED: Bactrim Ds Tab1 EACH PO ×2 (10:42→14:53)
== END 2020-12-03 23:14 | disposition home or self-care (01) ==
LOC: HBO 00:37
DX: E11.622 Type 2 diabetes mellitus with other skin ulcer (principal); L97.812 Non-pressure chronic ulcer of other part of right lower leg with fat layer exposed; L97.822 Non-pressure chronic ulcer of other part of left lower leg with fat layer exposed; I87.2 Venous insufficiency (chronic) (peripheral); S61.412D Laceration without foreign body of left hand, subsequent encounter; Z79.02 Long term (current) use of antithrombotics/antiplatelets; Z79.84 Long term (current) use of oral hypoglycemic drugs; Z79.899 Other long term (current) drug therapy; Z88.1 Allergy status to other antibiotic agents; Z88.8 Allergy status to other drugs, medicaments and biological substances; Z20.822 Contact with and (suspected) exposure to COVID-19; X58.XXXD Exposure to other specified factors, subsequent encounter
CPT/HCPCS: 82947; A9270; G0277

== ENCOUNTER 2020-12-03 00:47 | Day surgery (SDC) | payer OTHER ==
[2021-03-05] MEDS ORDERED: LOSA50 PO (11:36)
[2021-03-05] MEDS ORDERED: PREG50 PO (11:37)
[2021-03-05] MEDS ORDERED: LEVFLO500 PO (11:37)
[2021-03-25] MEDS ORDERED: Bactrim Ds Tab1 EACH PO ×2 (10:42→14:53)
== END 2020-12-03 23:14 | disposition home or self-care (01) ==
LOC: WOUND 00:47
DX: E11.622 Type 2 diabetes mellitus with other skin ulcer (principal); L97.812 Non-pressure chronic ulcer of other part of right lower leg with fat layer exposed; L97.822 Non-pressure chronic ulcer of other part of left lower leg with fat layer exposed; E11.52 Type 2 diabetes mellitus with diabetic peripheral angiopathy with gangrene; I96 Gangrene, not elsewhere classified; E66.9 Obesity, unspecified; G47.30 Sleep apnea, unspecified; I12.0 Hypertensive chronic kidney disease with stage 5 chronic kidney disease or end stage renal disease; E11.22 Type 2 diabetes mellitus with diabetic chronic kidney disease; N18.6 End stage renal disease; E03.9 Hypothyroidism, unspecified; M10.9 Gout, unspecified; E78.5 Hyperlipidemia, unspecified; I87.2 Venous insufficiency (chronic) (peripheral); S61.412D Laceration without foreign body of left hand, subsequent encounter; E11.36 Type 2 diabetes mellitus with diabetic cataract; H26.9 Unspecified cataract; I25.10 Atherosclerotic heart disease of native coronary artery without angina pectoris; Z20.822 Contact with and (suspected) exposure to COVID-19; Z68.41 Body mass index [BMI] 40.0-44.9, adult; Z87.891 Personal history of nicotine dependence; Z88.1 Allergy status to other antibiotic agents; Z88.8 Allergy status to other drugs, medicaments and biological substances; Z79.02 Long term (current) use of antithrombotics/antiplatelets; Z79.84 Long term (current) use of oral hypoglycemic drugs; Z79.899 Other long term (current) drug therapy; X58.XXXD Exposure to other specified factors, subsequent encounter
CPT/HCPCS: A9270

== ENCOUNTER 2020-12-04 00:40 | Day surgery (SDC) | payer OTHER ==
[2021-03-05] MEDS ORDERED: LOSA50 PO (11:36)
[2021-03-05] MEDS ORDERED: PREG50 PO (11:37)
[2021-03-05] MEDS ORDERED: LEVFLO500 PO (11:37)
[2021-03-25] MEDS ORDERED: Bactrim Ds Tab1 EACH PO ×2 (10:42→14:53)
== END 2020-12-04 22:51 | disposition home or self-care (01) ==
LOC: HBO 00:40
DX: E11.622 Type 2 diabetes mellitus with other skin ulcer (principal); L97.812 Non-pressure chronic ulcer of other part of right lower leg with fat layer exposed; L97.822 Non-pressure chronic ulcer of other part of left lower leg with fat layer exposed; I87.2 Venous insufficiency (chronic) (peripheral); S61.412D Laceration without foreign body of left hand, subsequent encounter; Z79.84 Long term (current) use of oral hypoglycemic drugs; Z79.899 Other long term (current) drug therapy; Z20.822 Contact with and (suspected) exposure to COVID-19; Z88.1 Allergy status to other antibiotic agents; Z88.8 Allergy status to other drugs, medicaments and biological substances; X58.XXXD Exposure to other specified factors, subsequent encounter
CPT/HCPCS: 82947; G0277

== ENCOUNTER 2020-12-05 00:24 | Day surgery (SDC) | payer OTHER ==
[2021-03-05] MEDS ORDERED: LOSA50 PO (11:36)
[2021-03-05] MEDS ORDERED: PREG50 PO (11:37)
[2021-03-05] MEDS ORDERED: LEVFLO500 PO (11:37)
[2021-03-25] MEDS ORDERED: Bactrim Ds Tab1 EACH PO ×2 (10:42→14:53)
== END 2020-12-05 22:49 | disposition home or self-care (01) ==
LOC: HBO 00:24
DX: E11.622 Type 2 diabetes mellitus with other skin ulcer (principal); L97.922 Non-pressure chronic ulcer of unspecified part of left lower leg with fat layer exposed; L97.812 Non-pressure chronic ulcer of other part of right lower leg with fat layer exposed; I87.2 Venous insufficiency (chronic) (peripheral); S61.412D Laceration without foreign body of left hand, subsequent encounter; X58.XXXD Exposure to other specified factors, subsequent encounter
CPT/HCPCS: 82947; G0277

== ENCOUNTER 2020-12-06 00:16 | Day surgery (SDC) | payer OTHER ==
[2021-03-05] MEDS ORDERED: LOSA50 PO (11:36)
[2021-03-05] MEDS ORDERED: LEVFLO500 PO (11:37)
[2021-03-05] MEDS ORDERED: PREG50 PO (11:37)
[2021-03-25] MEDS ORDERED: Bactrim Ds Tab1 EACH PO ×2 (10:42→14:53)
== END 2020-12-06 23:59 | disposition home or self-care (01) ==
LOC: HBO 00:16
DX: E11.622 Type 2 diabetes mellitus with other skin ulcer (principal); L97.812 Non-pressure chronic ulcer of other part of right lower leg with fat layer exposed; L97.822 Non-pressure chronic ulcer of other part of left lower leg with fat layer exposed; I87.2 Venous insufficiency (chronic) (peripheral); S61.412D Laceration without foreign body of left hand, subsequent encounter; Z79.02 Long term (current) use of antithrombotics/antiplatelets; Z79.84 Long term (current) use of oral hypoglycemic drugs; Z79.899 Other long term (current) drug therapy; Z20.822 Contact with and (suspected) exposure to COVID-19; Z88.1 Allergy status to other antibiotic agents; Z88.8 Allergy status to other drugs, medicaments and biological substances; X58.XXXD Exposure to other specified factors, subsequent encounter
CPT/HCPCS: 82947; G0277

== ENCOUNTER 2020-12-07 02:05 | Day surgery (SDC) | payer OTHER ==
[2021-03-05] MEDS ORDERED: LOSA50 PO (11:36)
[2021-03-05] MEDS ORDERED: PREG50 PO (11:37)
[2021-03-05] MEDS ORDERED: LEVFLO500 PO (11:37)
[2021-03-25] MEDS ORDERED: Bactrim Ds Tab1 EACH PO ×2 (10:42→14:53)
== END 2020-12-07 23:56 | disposition home or self-care (01) ==
LOC: HBO 02:05
DX: E11.622 Type 2 diabetes mellitus with other skin ulcer (principal); L97.812 Non-pressure chronic ulcer of other part of right lower leg with fat layer exposed; L97.822 Non-pressure chronic ulcer of other part of left lower leg with fat layer exposed; I87.2 Venous insufficiency (chronic) (peripheral); S61.412D Laceration without foreign body of left hand, subsequent encounter; Z79.02 Long term (current) use of antithrombotics/antiplatelets; Z79.84 Long term (current) use of oral hypoglycemic drugs; Z79.899 Other long term (current) drug therapy; Z20.822 Contact with and (suspected) exposure to COVID-19; Z88.1 Allergy status to other antibiotic agents; Z88.8 Allergy status to other drugs, medicaments and biological substances; X58.XXXD Exposure to other specified factors, subsequent encounter
CPT/HCPCS: 82947; G0277

== ENCOUNTER 2020-12-10 00:27 | Day surgery (SDC) | payer OTHER ==
[2021-03-05] MEDS ORDERED: LOSA50 PO (11:36)
[2021-03-05] MEDS ORDERED: PREG50 PO (11:37)
[2021-03-05] MEDS ORDERED: LEVFLO500 PO (11:37)
[2021-03-25] MEDS ORDERED: Bactrim Ds Tab1 EACH PO ×2 (10:42→14:53)
== END 2020-12-10 22:48 | disposition home or self-care (01) ==
LOC: HBO 00:27
DX: E11.622 Type 2 diabetes mellitus with other skin ulcer (principal); L97.812 Non-pressure chronic ulcer of other part of right lower leg with fat layer exposed; L97.822 Non-pressure chronic ulcer of other part of left lower leg with fat layer exposed; I87.2 Venous insufficiency (chronic) (peripheral); S61.412D Laceration without foreign body of left hand, subsequent encounter; Z79.02 Long term (current) use of antithrombotics/antiplatelets; Z79.84 Long term (current) use of oral hypoglycemic drugs; Z79.899 Other long term (current) drug therapy; Z20.822 Contact with and (suspected) exposure to COVID-19; Z88.1 Allergy status to other antibiotic agents; Z88.8 Allergy status to other drugs, medicaments and biological substances; X58.XXXD Exposure to other specified factors, subsequent encounter
CPT/HCPCS: 82947; A9270; G0277

== ENCOUNTER 2020-12-10 00:29 | Day surgery (SDC) | payer OTHER ==
[2021-03-05] MEDS ORDERED: LOSA50 PO (11:36)
[2021-03-05] MEDS ORDERED: LEVFLO500 PO (11:37)
[2021-03-05] MEDS ORDERED: PREG50 PO (11:37)
[2021-03-25] MEDS ORDERED: Bactrim Ds Tab1 EACH PO ×2 (10:42→14:53)
== END 2020-12-10 22:49 | disposition home or self-care (01) ==
LOC: WOUND 00:29
DX: E11.622 Type 2 diabetes mellitus with other skin ulcer (principal); L97.812 Non-pressure chronic ulcer of other part of right lower leg with fat layer exposed; L97.822 Non-pressure chronic ulcer of other part of left lower leg with fat layer exposed; S61.412D Laceration without foreign body of left hand, subsequent encounter; X58.XXXD Exposure to other specified factors, subsequent encounter; E11.51 Type 2 diabetes mellitus with diabetic peripheral angiopathy without gangrene; G47.30 Sleep apnea, unspecified; I12.9 Hypertensive chronic kidney disease with stage 1 through stage 4 chronic kidney disease, or unspecified chronic kidney disease; N18.9 Chronic kidney disease, unspecified; E11.22 Type 2 diabetes mellitus with diabetic chronic kidney disease; E03.9 Hypothyroidism, unspecified; Z87.891 Personal history of nicotine dependence; E66.9 Obesity, unspecified; Z68.41 Body mass index [BMI] 40.0-44.9, adult; M10.9 Gout, unspecified; E78.5 Hyperlipidemia, unspecified; Z88.8 Allergy status to other drugs, medicaments and biological substances; Z88.1 Allergy status to other antibiotic agents; Z79.02 Long term (current) use of antithrombotics/antiplatelets; Z79.84 Long term (current) use of oral hypoglycemic drugs; Z79.899 Other long term (current) drug therapy; Z20.822 Contact with and (suspected) exposure to COVID-19
CPT/HCPCS: A9270

== ENCOUNTER 2020-12-11 00:24 | Day surgery (SDC) | payer OTHER ==
[2021-03-05] MEDS ORDERED: LOSA50 PO (11:36)
[2021-03-05] MEDS ORDERED: PREG50 PO (11:37)
[2021-03-05] MEDS ORDERED: LEVFLO500 PO (11:37)
[2021-03-25] MEDS ORDERED: Bactrim Ds Tab1 EACH PO ×2 (10:42→14:53)
== END 2020-12-11 23:17 | disposition home or self-care (01) ==
LOC: HBO 00:24
DX: E11.622 Type 2 diabetes mellitus with other skin ulcer (principal); L97.812 Non-pressure chronic ulcer of other part of right lower leg with fat layer exposed; L97.822 Non-pressure chronic ulcer of other part of left lower leg with fat layer exposed; S61.412D Laceration without foreign body of left hand, subsequent encounter; X58.XXXD Exposure to other specified factors, subsequent encounter; I87.2 Venous insufficiency (chronic) (peripheral); Z88.1 Allergy status to other antibiotic agents; Z88.8 Allergy status to other drugs, medicaments and biological substances; Z79.02 Long term (current) use of antithrombotics/antiplatelets; Z79.84 Long term (current) use of oral hypoglycemic drugs; Z79.899 Other long term (current) drug therapy; Z20.822 Contact with and (suspected) exposure to COVID-19
CPT/HCPCS: 82947; G0277

== ENCOUNTER 2020-12-12 00:43 | Day surgery (SDC) | payer OTHER ==
[2021-03-05] MEDS ORDERED: LOSA50 PO (11:36)
[2021-03-05] MEDS ORDERED: PREG50 PO (11:37)
[2021-03-05] MEDS ORDERED: LEVFLO500 PO (11:37)
[2021-03-25] MEDS ORDERED: Bactrim Ds Tab1 EACH PO ×2 (10:42→14:53)
== END 2020-12-12 23:11 | disposition home or self-care (01) ==
LOC: HBO 00:43
DX: E11.622 Type 2 diabetes mellitus with other skin ulcer (principal); L97.812 Non-pressure chronic ulcer of other part of right lower leg with fat layer exposed; L97.822 Non-pressure chronic ulcer of other part of left lower leg with fat layer exposed; I87.2 Venous insufficiency (chronic) (peripheral); S61.412D Laceration without foreign body of left hand, subsequent encounter; Z79.02 Long term (current) use of antithrombotics/antiplatelets; Z79.899 Other long term (current) drug therapy; Z79.84 Long term (current) use of oral hypoglycemic drugs; Z20.822 Contact with and (suspected) exposure to COVID-19; Z88.1 Allergy status to other antibiotic agents; Z88.8 Allergy status to other drugs, medicaments and biological substances; X58.XXXD Exposure to other specified factors, subsequent encounter
CPT/HCPCS: 82947; G0277

== ENCOUNTER 2020-12-14 00:30 | Day surgery (SDC) | payer OTHER ==
[2021-03-05] MEDS ORDERED: LOSA50 PO (11:36)
[2021-03-05] MEDS ORDERED: LEVFLO500 PO (11:37)
[2021-03-05] MEDS ORDERED: PREG50 PO (11:37)
[2021-03-25] MEDS ORDERED: Bactrim Ds Tab1 EACH PO ×2 (10:42→14:53)
== END 2020-12-14 22:47 | disposition home or self-care (01) ==
LOC: HBO 00:30
DX: E11.622 Type 2 diabetes mellitus with other skin ulcer (principal); L97.922 Non-pressure chronic ulcer of unspecified part of left lower leg with fat layer exposed; L97.812 Non-pressure chronic ulcer of other part of right lower leg with fat layer exposed; I87.2 Venous insufficiency (chronic) (peripheral); S61.412D Laceration without foreign body of left hand, subsequent encounter; X58.XXXD Exposure to other specified factors, subsequent encounter; Z79.899 Other long term (current) drug therapy
CPT/HCPCS: 82947; G0277

== ENCOUNTER 2020-12-17 00:30 | Day surgery (SDC) | payer OTHER ==
[2021-03-05] MEDS ORDERED: LOSA50 PO (11:36)
[2021-03-05] MEDS ORDERED: LEVFLO500 PO (11:37)
[2021-03-05] MEDS ORDERED: PREG50 PO (11:37)
[2021-03-25] MEDS ORDERED: Bactrim Ds Tab1 EACH PO ×2 (10:42→14:53)
== END 2020-12-17 22:47 | disposition home or self-care (01) ==
LOC: HBO 00:30
DX: E11.622 Type 2 diabetes mellitus with other skin ulcer (principal); L97.922 Non-pressure chronic ulcer of unspecified part of left lower leg with fat layer exposed; L97.812 Non-pressure chronic ulcer of other part of right lower leg with fat layer exposed; I87.2 Venous insufficiency (chronic) (peripheral); S61.412D Laceration without foreign body of left hand, subsequent encounter; X58.XXXD Exposure to other specified factors, subsequent encounter
CPT/HCPCS: 82947; A9270; G0277

== ENCOUNTER 2020-12-17 00:35 | Day surgery (SDC) | payer OTHER ==
[2021-03-05] MEDS ORDERED: LOSA50 PO (11:36)
[2021-03-05] MEDS ORDERED: LEVFLO500 PO (11:37)
[2021-03-05] MEDS ORDERED: PREG50 PO (11:37)
[2021-03-25] MEDS ORDERED: Bactrim Ds Tab1 EACH PO ×2 (10:42→14:53)
== END 2020-12-17 22:48 | disposition home or self-care (01) ==
LOC: WOUND 00:35
DX: E11.622 Type 2 diabetes mellitus with other skin ulcer (principal); L97.922 Non-pressure chronic ulcer of unspecified part of left lower leg with fat layer exposed; L97.812 Non-pressure chronic ulcer of other part of right lower leg with fat layer exposed; I87.2 Venous insufficiency (chronic) (peripheral); S61.412D Laceration without foreign body of left hand, subsequent encounter; I12.9 Hypertensive chronic kidney disease with stage 1 through stage 4 chronic kidney disease, or unspecified chronic kidney disease; E11.22 Type 2 diabetes mellitus with diabetic chronic kidney disease; N18.9 Chronic kidney disease, unspecified; I73.9 Peripheral vascular disease, unspecified; G47.33 Obstructive sleep apnea (adult) (pediatric); J45.909 Unspecified asthma, uncomplicated; E03.9 Hypothyroidism, unspecified; M10.9 Gout, unspecified; E78.5 Hyperlipidemia, unspecified; E66.9 Obesity, unspecified; Z68.41 Body mass index [BMI] 40.0-44.9, adult; Z87.891 Personal history of nicotine dependence; Z95.2 Presence of prosthetic heart valve; Z79.84 Long term (current) use of oral hypoglycemic drugs
CPT/HCPCS: A9270

== ENCOUNTER 2020-12-18 00:23 | Day surgery (SDC) | payer OTHER ==
[2021-03-05] MEDS ORDERED: LOSA50 PO (11:36)
[2021-03-05] MEDS ORDERED: PREG50 PO (11:37)
[2021-03-05] MEDS ORDERED: LEVFLO500 PO (11:37)
[2021-03-25] MEDS ORDERED: Bactrim Ds Tab1 EACH PO ×2 (10:42→14:53)
== END 2020-12-18 22:54 | disposition home or self-care (01) ==
LOC: HBO 00:23
DX: E11.622 Type 2 diabetes mellitus with other skin ulcer (principal); L97.812 Non-pressure chronic ulcer of other part of right lower leg with fat layer exposed; L97.922 Non-pressure chronic ulcer of unspecified part of left lower leg with fat layer exposed; S61.412D Laceration without foreign body of left hand, subsequent encounter; I87.2 Venous insufficiency (chronic) (peripheral)
CPT/HCPCS: 82947; G0277

== ENCOUNTER 2020-12-19 00:16 | Day surgery (SDC) | payer OTHER ==
[2021-03-05] MEDS ORDERED: LOSA50 PO (11:36)
[2021-03-05] MEDS ORDERED: LEVFLO500 PO (11:37)
[2021-03-05] MEDS ORDERED: PREG50 PO (11:37)
[2021-03-25] MEDS ORDERED: Bactrim Ds Tab1 EACH PO ×2 (10:42→14:53)
== END 2020-12-19 22:39 | disposition home or self-care (01) ==
LOC: HBO 00:16
DX: E11.622 Type 2 diabetes mellitus with other skin ulcer (principal); L97.812 Non-pressure chronic ulcer of other part of right lower leg with fat layer exposed; L97.922 Non-pressure chronic ulcer of unspecified part of left lower leg with fat layer exposed; I87.2 Venous insufficiency (chronic) (peripheral); S61.412D Laceration without foreign body of left hand, subsequent encounter; X58.XXXD Exposure to other specified factors, subsequent encounter
CPT/HCPCS: 82947; G0277

== ENCOUNTER 2020-12-20 00:26 | Day surgery (SDC) | payer OTHER ==
[2021-03-05] MEDS ORDERED: LOSA50 PO (11:36)
[2021-03-05] MEDS ORDERED: LEVFLO500 PO (11:37)
[2021-03-05] MEDS ORDERED: PREG50 PO (11:37)
[2021-03-25] MEDS ORDERED: Bactrim Ds Tab1 EACH PO ×2 (10:42→14:53)
== END 2020-12-20 23:34 | disposition home or self-care (01) ==
LOC: HBO 00:26
DX: E11.622 Type 2 diabetes mellitus with other skin ulcer (principal); L97.922 Non-pressure chronic ulcer of unspecified part of left lower leg with fat layer exposed; L97.812 Non-pressure chronic ulcer of other part of right lower leg with fat layer exposed; I87.2 Venous insufficiency (chronic) (peripheral); S61.412D Laceration without foreign body of left hand, subsequent encounter
CPT/HCPCS: 82947; G0277

== ENCOUNTER 2020-12-21 00:36 | Day surgery (SDC) | payer OTHER ==
[2021-03-05] MEDS ORDERED: LOSA50 PO (11:36)
[2021-03-05] MEDS ORDERED: LEVFLO500 PO (11:37)
[2021-03-05] MEDS ORDERED: PREG50 PO (11:37)
[2021-03-25] MEDS ORDERED: Bactrim Ds Tab1 EACH PO ×2 (10:42→14:53)
== END 2020-12-21 23:13 | disposition home or self-care (01) ==
LOC: HBO 00:36
DX: E11.622 Type 2 diabetes mellitus with other skin ulcer (principal); L97.922 Non-pressure chronic ulcer of unspecified part of left lower leg with fat layer exposed; L97.812 Non-pressure chronic ulcer of other part of right lower leg with fat layer exposed; I87.2 Venous insufficiency (chronic) (peripheral); S61.412D Laceration without foreign body of left hand, subsequent encounter
CPT/HCPCS: 82947; G0463

== ENCOUNTER 2020-12-24 00:42 | Day surgery (SDC) | payer OTHER ==
[2021-03-05] MEDS ORDERED: LOSA50 PO (11:36)
[2021-03-05] MEDS ORDERED: PREG50 PO (11:37)
[2021-03-05] MEDS ORDERED: LEVFLO500 PO (11:37)
[2021-03-25] MEDS ORDERED: Bactrim Ds Tab1 EACH PO ×2 (10:42→14:53)
== END 2020-12-24 23:45 ==
LOC: HBO 00:42
DX: E11.622 Type 2 diabetes mellitus with other skin ulcer (principal); L97.922 Non-pressure chronic ulcer of unspecified part of left lower leg with fat layer exposed; L97.812 Non-pressure chronic ulcer of other part of right lower leg with fat layer exposed; I87.2 Venous insufficiency (chronic) (peripheral); S61.412D Laceration without foreign body of left hand, subsequent encounter; X58.XXXD Exposure to other specified factors, subsequent encounter; Z79.84 Long term (current) use of oral hypoglycemic drugs
CPT/HCPCS: 82947; G0277

== ENCOUNTER 2020-12-24 00:44 | Day surgery (SDC) | payer OTHER ==
[2021-03-05] MEDS ORDERED: LOSA50 PO (11:36)
[2021-03-05] MEDS ORDERED: PREG50 PO (11:37)
[2021-03-05] MEDS ORDERED: LEVFLO500 PO (11:37)
[2021-03-25] MEDS ORDERED: Bactrim Ds Tab1 EACH PO ×2 (10:42→14:53)
== END 2020-12-24 23:45 ==
LOC: WOUND 00:44
DX: E11.622 Type 2 diabetes mellitus with other skin ulcer (principal); L97.812 Non-pressure chronic ulcer of other part of right lower leg with fat layer exposed; L97.822 Non-pressure chronic ulcer of other part of left lower leg with fat layer exposed; I87.2 Venous insufficiency (chronic) (peripheral); S61.412D Laceration without foreign body of left hand, subsequent encounter; I12.9 Hypertensive chronic kidney disease with stage 1 through stage 4 chronic kidney disease, or unspecified chronic kidney disease; E11.22 Type 2 diabetes mellitus with diabetic chronic kidney disease; N18.9 Chronic kidney disease, unspecified; J45.909 Unspecified asthma, uncomplicated; E03.9 Hypothyroidism, unspecified; M10.9 Gout, unspecified; G47.30 Sleep apnea, unspecified; Z87.891 Personal history of nicotine dependence; Z79.84 Long term (current) use of oral hypoglycemic drugs; X58.XXXD Exposure to other specified factors, subsequent encounter; E11.51 Type 2 diabetes mellitus with diabetic peripheral angiopathy without gangrene; E66.9 Obesity, unspecified; Z68.41 Body mass index [BMI] 40.0-44.9, adult
CPT/HCPCS: A9270

== ENCOUNTER 2020-12-25 00:15 | Day surgery (SDC) | payer OTHER ==
[2021-03-05] MEDS ORDERED: LOSA50 PO (11:36)
[2021-03-05] MEDS ORDERED: LEVFLO500 PO (11:37)
[2021-03-05] MEDS ORDERED: PREG50 PO (11:37)
[2021-03-25] MEDS ORDERED: Bactrim Ds Tab1 EACH PO ×2 (10:42→14:53)
== END 2020-12-25 23:45 ==
LOC: HBO 00:15
DX: E11.622 Type 2 diabetes mellitus with other skin ulcer (principal); L97.922 Non-pressure chronic ulcer of unspecified part of left lower leg with fat layer exposed; L97.812 Non-pressure chronic ulcer of other part of right lower leg with fat layer exposed; I87.2 Venous insufficiency (chronic) (peripheral); S61.412D Laceration without foreign body of left hand, subsequent encounter; X58.XXXD Exposure to other specified factors, subsequent encounter; Z79.84 Long term (current) use of oral hypoglycemic drugs
CPT/HCPCS: 82947; G0277

== ENCOUNTER 2020-12-26 00:16 | Day surgery (SDC) | payer OTHER ==
[2021-03-05] MEDS ORDERED: LOSA50 PO (11:36)
[2021-03-05] MEDS ORDERED: PREG50 PO (11:37)
[2021-03-05] MEDS ORDERED: LEVFLO500 PO (11:37)
[2021-03-25] MEDS ORDERED: Bactrim Ds Tab1 EACH PO ×2 (10:42→14:53)
== END 2020-12-26 23:45 | disposition home or self-care (01) ==
LOC: HBO 00:16
DX: E11.622 Type 2 diabetes mellitus with other skin ulcer (principal); L97.922 Non-pressure chronic ulcer of unspecified part of left lower leg with fat layer exposed; L97.812 Non-pressure chronic ulcer of other part of right lower leg with fat layer exposed; I87.2 Venous insufficiency (chronic) (peripheral); S61.412D Laceration without foreign body of left hand, subsequent encounter; X58.XXXD Exposure to other specified factors, subsequent encounter
CPT/HCPCS: 82947; G0277

== ENCOUNTER 2020-12-27 00:20 | Day surgery (SDC) | payer OTHER ==
[2021-03-05] MEDS ORDERED: LOSA50 PO (11:36)
[2021-03-05] MEDS ORDERED: PREG50 PO (11:37)
[2021-03-05] MEDS ORDERED: LEVFLO500 PO (11:37)
[2021-03-25] MEDS ORDERED: Bactrim Ds Tab1 EACH PO ×2 (10:42→14:53)
== END 2020-12-27 23:45 | disposition home or self-care (01) ==
LOC: HBO 00:20
DX: E11.622 Type 2 diabetes mellitus with other skin ulcer (principal); L97.922 Non-pressure chronic ulcer of unspecified part of left lower leg with fat layer exposed; L97.812 Non-pressure chronic ulcer of other part of right lower leg with fat layer exposed; I87.2 Venous insufficiency (chronic) (peripheral); S61.412D Laceration without foreign body of left hand, subsequent encounter; X58.XXXD Exposure to other specified factors, subsequent encounter
CPT/HCPCS: 82947; G0277

== ENCOUNTER 2020-12-28 02:14 | Day surgery (SDC) | payer OTHER ==
[2021-03-05] MEDS ORDERED: LOSA50 PO (11:36)
[2021-03-05] MEDS ORDERED: LEVFLO500 PO (11:37)
[2021-03-05] MEDS ORDERED: PREG50 PO (11:37)
[2021-03-25] MEDS ORDERED: Bactrim Ds Tab1 EACH PO ×2 (10:42→14:53)
== END 2020-12-28 23:45 | disposition home or self-care (01) ==
LOC: HBO 02:14
DX: E11.622 Type 2 diabetes mellitus with other skin ulcer (principal); L97.922 Non-pressure chronic ulcer of unspecified part of left lower leg with fat layer exposed; L97.812 Non-pressure chronic ulcer of other part of right lower leg with fat layer exposed; I87.2 Venous insufficiency (chronic) (peripheral); S61.412D Laceration without foreign body of left hand, subsequent encounter; X58.XXXD Exposure to other specified factors, subsequent encounter; Z79.84 Long term (current) use of oral hypoglycemic drugs
CPT/HCPCS: 82947; G0463

== ENCOUNTER 2020-12-31 00:38 | Day surgery (SDC) | payer OTHER ==
[2021-03-05] MEDS ORDERED: LOSA50 PO (11:36)
[2021-03-05] MEDS ORDERED: PREG50 PO (11:37)
[2021-03-05] MEDS ORDERED: LEVFLO500 PO (11:37)
[2021-03-25] MEDS ORDERED: Bactrim Ds Tab1 EACH PO ×2 (10:42→14:53)
== END 2020-12-31 23:40 | disposition home or self-care (01) ==
LOC: HBO 00:38
DX: E11.622 Type 2 diabetes mellitus with other skin ulcer (principal); L97.922 Non-pressure chronic ulcer of unspecified part of left lower leg with fat layer exposed; L97.812 Non-pressure chronic ulcer of other part of right lower leg with fat layer exposed; I87.2 Venous insufficiency (chronic) (peripheral); S61.412D Laceration without foreign body of left hand, subsequent encounter; X58.XXXD Exposure to other specified factors, subsequent encounter
CPT/HCPCS: 82947; 87071; 87075; 87205; A9270; G0463

== ENCOUNTER 2020-12-31 00:40 | Day surgery (SDC) | payer OTHER ==
[2021-03-05] MEDS ORDERED: LOSA50 PO (11:36)
[2021-03-05] MEDS ORDERED: LEVFLO500 PO (11:37)
[2021-03-05] MEDS ORDERED: PREG50 PO (11:37)
[2021-03-25] MEDS ORDERED: Bactrim Ds Tab1 EACH PO ×2 (10:42→14:53)
== END 2020-12-31 23:40 | disposition home or self-care (01) ==
LOC: WOUND 00:40
DX: E11.622 Type 2 diabetes mellitus with other skin ulcer (principal); L97.822 Non-pressure chronic ulcer of other part of left lower leg with fat layer exposed; L97.812 Non-pressure chronic ulcer of other part of right lower leg with fat layer exposed; I87.2 Venous insufficiency (chronic) (peripheral); S61.412D Laceration without foreign body of left hand, subsequent encounter; I12.9 Hypertensive chronic kidney disease with stage 1 through stage 4 chronic kidney disease, or unspecified chronic kidney disease; E11.22 Type 2 diabetes mellitus with diabetic chronic kidney disease; N18.9 Chronic kidney disease, unspecified; J45.909 Unspecified asthma, uncomplicated; E03.9 Hypothyroidism, unspecified; M10.9 Gout, unspecified; G47.30 Sleep apnea, unspecified; Z87.891 Personal history of nicotine dependence; Z79.84 Long term (current) use of oral hypoglycemic drugs; X58.XXXD Exposure to other specified factors, subsequent encounter
CPT/HCPCS: 87071; 87075; 87205; A9270

== ENCOUNTER 2021-01-07 00:32 | Day surgery (SDC) | payer OTHER ==
[2021-03-05] MEDS ORDERED: LOSA50 PO (11:36)
[2021-03-05] MEDS ORDERED: PREG50 PO (11:37)
[2021-03-05] MEDS ORDERED: LEVFLO500 PO (11:37)
[2021-03-25] MEDS ORDERED: Bactrim Ds Tab1 EACH PO ×2 (10:42→14:53)
== END 2021-01-07 23:59 | disposition home or self-care (01) ==
LOC: HBO 00:32
DX: E11.622 Type 2 diabetes mellitus with other skin ulcer (principal); L97.922 Non-pressure chronic ulcer of unspecified part of left lower leg with fat layer exposed; L97.812 Non-pressure chronic ulcer of other part of right lower leg with fat layer exposed; I87.2 Venous insufficiency (chronic) (peripheral); S61.412D Laceration without foreign body of left hand, subsequent encounter; X58.XXXD Exposure to other specified factors, subsequent encounter
CPT/HCPCS: 82947; A9270; G0277

== ENCOUNTER 2021-01-07 00:34 | Day surgery (SDC) | payer OTHER ==
[2021-03-05] MEDS ORDERED: LOSA50 PO (11:36)
[2021-03-05] MEDS ORDERED: LEVFLO500 PO (11:37)
[2021-03-05] MEDS ORDERED: PREG50 PO (11:37)
[2021-03-25] MEDS ORDERED: Bactrim Ds Tab1 EACH PO ×2 (10:42→14:53)
== END 2021-01-07 23:59 | disposition home or self-care (01) ==
LOC: WOUND 00:34
DX: E11.622 Type 2 diabetes mellitus with other skin ulcer (principal); L97.822 Non-pressure chronic ulcer of other part of left lower leg with fat layer exposed; L97.812 Non-pressure chronic ulcer of other part of right lower leg with fat layer exposed; I87.2 Venous insufficiency (chronic) (peripheral); S61.412D Laceration without foreign body of left hand, subsequent encounter; E11.51 Type 2 diabetes mellitus with diabetic peripheral angiopathy without gangrene; G47.30 Sleep apnea, unspecified; E11.22 Type 2 diabetes mellitus with diabetic chronic kidney disease; I12.9 Hypertensive chronic kidney disease with stage 1 through stage 4 chronic kidney disease, or unspecified chronic kidney disease; N18.2 Chronic kidney disease, stage 2 (mild); E78.5 Hyperlipidemia, unspecified; E66.9 Obesity, unspecified; Z87.891 Personal history of nicotine dependence; Z95.2 Presence of prosthetic heart valve; Z99.89 Dependence on other enabling machines and devices; Z68.41 Body mass index [BMI] 40.0-44.9, adult
CPT/HCPCS: A9270

== ENCOUNTER 2021-01-08 08:00 | Day surgery (SDC) | payer OTHER ==
[2021-03-05] MEDS ORDERED: LOSA50 PO (11:36)
[2021-03-05] MEDS ORDERED: PREG50 PO (11:37)
[2021-03-05] MEDS ORDERED: LEVFLO500 PO (11:37)
[2021-03-25] MEDS ORDERED: Bactrim Ds Tab1 EACH PO ×2 (10:42→14:53)
== END 2021-01-14 22:58 | disposition home or self-care (01) ==
LOC: HBO 08:00
DX: E11.622 Type 2 diabetes mellitus with other skin ulcer (principal); L97.922 Non-pressure chronic ulcer of unspecified part of left lower leg with fat layer exposed; L97.812 Non-pressure chronic ulcer of other part of right lower leg with fat layer exposed; E11.51 Type 2 diabetes mellitus with diabetic peripheral angiopathy without gangrene; S61.412D Laceration without foreign body of left hand, subsequent encounter
CPT/HCPCS: 82947; G0277

== ENCOUNTER 2021-01-09 01:35 | Day surgery (SDC) | payer OTHER ==
[2021-03-05] MEDS ORDERED: LOSA50 PO (11:36)
[2021-03-05] MEDS ORDERED: PREG50 PO (11:37)
[2021-03-05] MEDS ORDERED: LEVFLO500 PO (11:37)
[2021-03-25] MEDS ORDERED: Bactrim Ds Tab1 EACH PO ×2 (10:42→14:53)
== END 2021-01-09 23:03 | disposition home or self-care (01) ==
LOC: HBO 01:35
DX: E11.622 Type 2 diabetes mellitus with other skin ulcer (principal); L97.922 Non-pressure chronic ulcer of unspecified part of left lower leg with fat layer exposed; L97.812 Non-pressure chronic ulcer of other part of right lower leg with fat layer exposed; I87.2 Venous insufficiency (chronic) (peripheral); S61.412D Laceration without foreign body of left hand, subsequent encounter
CPT/HCPCS: 82947; G0277

== ENCOUNTER 2021-01-10 00:31 | Day surgery (SDC) | payer OTHER ==
[2021-03-05] MEDS ORDERED: LOSA50 PO (11:36)
[2021-03-05] MEDS ORDERED: LEVFLO500 PO (11:37)
[2021-03-05] MEDS ORDERED: PREG50 PO (11:37)
[2021-03-25] MEDS ORDERED: Bactrim Ds Tab1 EACH PO ×2 (10:42→14:53)
== END 2021-01-10 23:52 | disposition home or self-care (01) ==
LOC: HBO 00:31
DX: E11.622 Type 2 diabetes mellitus with other skin ulcer (principal); L97.922 Non-pressure chronic ulcer of unspecified part of left lower leg with fat layer exposed; L97.812 Non-pressure chronic ulcer of other part of right lower leg with fat layer exposed; I87.2 Venous insufficiency (chronic) (peripheral); S61.412D Laceration without foreign body of left hand, subsequent encounter; X58.XXXD Exposure to other specified factors, subsequent encounter
CPT/HCPCS: 82947; G0277

== ENCOUNTER 2021-01-11 00:48 | Day surgery (SDC) | payer OTHER ==
[2021-03-05] MEDS ORDERED: LOSA50 PO (11:36)
[2021-03-05] MEDS ORDERED: PREG50 PO (11:37)
[2021-03-05] MEDS ORDERED: LEVFLO500 PO (11:37)
[2021-03-25] MEDS ORDERED: Bactrim Ds Tab1 EACH PO ×2 (10:42→14:53)
== END 2021-01-11 23:50 | disposition home or self-care (01) ==
LOC: HBO 00:48
DX: E11.622 Type 2 diabetes mellitus with other skin ulcer (principal); L97.922 Non-pressure chronic ulcer of unspecified part of left lower leg with fat layer exposed; L97.812 Non-pressure chronic ulcer of other part of right lower leg with fat layer exposed; I87.2 Venous insufficiency (chronic) (peripheral); S61.412D Laceration without foreign body of left hand, subsequent encounter; X58.XXXD Exposure to other specified factors, subsequent encounter
CPT/HCPCS: 82947; G0277

== ENCOUNTER 2021-01-14 00:48 | Day surgery (SDC) | payer OTHER ==
[2021-03-05] MEDS ORDERED: LOSA50 PO (11:36)
[2021-03-05] MEDS ORDERED: LEVFLO500 PO (11:37)
[2021-03-05] MEDS ORDERED: PREG50 PO (11:37)
[2021-03-25] MEDS ORDERED: Bactrim Ds Tab1 EACH PO ×2 (10:42→14:53)
== END 2021-01-14 22:58 | disposition home or self-care (01) ==
LOC: HBO 00:48
DX: E11.622 Type 2 diabetes mellitus with other skin ulcer (principal); L97.812 Non-pressure chronic ulcer of other part of right lower leg with fat layer exposed; L97.822 Non-pressure chronic ulcer of other part of left lower leg with fat layer exposed; I87.2 Venous insufficiency (chronic) (peripheral); S61.412D Laceration without foreign body of left hand, subsequent encounter; X58.XXXD Exposure to other specified factors, subsequent encounter
CPT/HCPCS: 82947; G0277

== ENCOUNTER 2021-01-15 00:40 | Day surgery (SDC) | payer OTHER ==
[2021-03-05] MEDS ORDERED: LOSA50 PO (11:36)
[2021-03-05] MEDS ORDERED: PREG50 PO (11:37)
[2021-03-05] MEDS ORDERED: LEVFLO500 PO (11:37)
[2021-03-25] MEDS ORDERED: Bactrim Ds Tab1 EACH PO ×2 (10:42→14:53)
== END 2021-01-15 23:10 | disposition home or self-care (01) ==
LOC: HBO 00:40
DX: E11.622 Type 2 diabetes mellitus with other skin ulcer (principal); L97.922 Non-pressure chronic ulcer of unspecified part of left lower leg with fat layer exposed; L97.812 Non-pressure chronic ulcer of other part of right lower leg with fat layer exposed; I87.2 Venous insufficiency (chronic) (peripheral); S61.412D Laceration without foreign body of left hand, subsequent encounter; X58.XXXD Exposure to other specified factors, subsequent encounter
CPT/HCPCS: 82947; G0277

== ENCOUNTER 2021-01-16 00:29 | Day surgery (SDC) | payer OTHER ==
[2021-03-05] MEDS ORDERED: LOSA50 PO (11:36)
[2021-03-05] MEDS ORDERED: LEVFLO500 PO (11:37)
[2021-03-05] MEDS ORDERED: PREG50 PO (11:37)
[2021-03-25] MEDS ORDERED: Bactrim Ds Tab1 EACH PO ×2 (10:42→14:53)
== END 2021-01-16 22:50 | disposition home or self-care (01) ==
LOC: HBO 00:29
DX: E11.622 Type 2 diabetes mellitus with other skin ulcer (principal); L97.812 Non-pressure chronic ulcer of other part of right lower leg with fat layer exposed; L97.922 Non-pressure chronic ulcer of unspecified part of left lower leg with fat layer exposed; I87.2 Venous insufficiency (chronic) (peripheral); S61.412D Laceration without foreign body of left hand, subsequent encounter; X58.XXXD Exposure to other specified factors, subsequent encounter
CPT/HCPCS: 82947; G0277

== ENCOUNTER 2021-01-17 00:14 | Day surgery (SDC) | payer OTHER ==
[2021-03-05] MEDS ORDERED: LOSA50 PO (11:36)
[2021-03-05] MEDS ORDERED: PREG50 PO (11:37)
[2021-03-05] MEDS ORDERED: LEVFLO500 PO (11:37)
[2021-03-25] MEDS ORDERED: Bactrim Ds Tab1 EACH PO ×2 (10:42→14:53)
== END 2021-01-17 23:46 | disposition home or self-care (01) ==
LOC: HBO 00:14
DX: E11.622 Type 2 diabetes mellitus with other skin ulcer (principal); L97.922 Non-pressure chronic ulcer of unspecified part of left lower leg with fat layer exposed; L97.812 Non-pressure chronic ulcer of other part of right lower leg with fat layer exposed; I87.2 Venous insufficiency (chronic) (peripheral); S61.412D Laceration without foreign body of left hand, subsequent encounter; X58.XXXD Exposure to other specified factors, subsequent encounter
CPT/HCPCS: 82947; G0277

== ENCOUNTER 2021-01-18 01:50 | Day surgery (SDC) | payer OTHER ==
[2021-03-05] MEDS ORDERED: LOSA50 PO (11:36)
[2021-03-05] MEDS ORDERED: PREG50 PO (11:37)
[2021-03-05] MEDS ORDERED: LEVFLO500 PO (11:37)
[2021-03-25] MEDS ORDERED: Bactrim Ds Tab1 EACH PO ×2 (10:42→14:53)
== END 2021-01-18 22:44 | disposition home or self-care (01) ==
LOC: HBO 01:50
DX: E11.622 Type 2 diabetes mellitus with other skin ulcer (principal); L97.922 Non-pressure chronic ulcer of unspecified part of left lower leg with fat layer exposed; L97.812 Non-pressure chronic ulcer of other part of right lower leg with fat layer exposed; I87.2 Venous insufficiency (chronic) (peripheral); S61.412D Laceration without foreign body of left hand, subsequent encounter
CPT/HCPCS: 82947; 88305; 88311; A9270; G0277

== ENCOUNTER 2021-01-18 01:54 | Day surgery (SDC) | payer OTHER ==
[2021-03-05] MEDS ORDERED: LOSA50 PO (11:36)
[2021-03-05] MEDS ORDERED: LEVFLO500 PO (11:37)
[2021-03-05] MEDS ORDERED: PREG50 PO (11:37)
[2021-03-25] MEDS ORDERED: Bactrim Ds Tab1 EACH PO ×2 (10:42→14:53)
== END 2021-01-18 22:45 | disposition home or self-care (01) ==
LOC: WOUND 01:54
DX: E11.622 Type 2 diabetes mellitus with other skin ulcer (principal); L97.922 Non-pressure chronic ulcer of unspecified part of left lower leg with fat layer exposed; L97.812 Non-pressure chronic ulcer of other part of right lower leg with fat layer exposed; J45.909 Unspecified asthma, uncomplicated; E66.9 Obesity, unspecified; Z68.41 Body mass index [BMI] 40.0-44.9, adult; I87.2 Venous insufficiency (chronic) (peripheral); S61.412D Laceration without foreign body of left hand, subsequent encounter; I12.9 Hypertensive chronic kidney disease with stage 1 through stage 4 chronic kidney disease, or unspecified chronic kidney disease; E11.22 Type 2 diabetes mellitus with diabetic chronic kidney disease; N18.9 Chronic kidney disease, unspecified; M10.9 Gout, unspecified; X58.XXXD Exposure to other specified factors, subsequent encounter; Z87.891 Personal history of nicotine dependence
CPT/HCPCS: 88305; 88311; A9270

== ENCOUNTER 2021-01-21 00:52 | Day surgery (SDC) | payer OTHER ==
[2021-03-05] MEDS ORDERED: LOSA50 PO (11:36)
[2021-03-05] MEDS ORDERED: PREG50 PO (11:37)
[2021-03-05] MEDS ORDERED: LEVFLO500 PO (11:37)
[2021-03-25] MEDS ORDERED: Bactrim Ds Tab1 EACH PO ×2 (10:42→14:53)
== END 2021-01-21 22:56 | disposition home or self-care (01) ==
LOC: HBO 00:52
DX: E11.622 Type 2 diabetes mellitus with other skin ulcer (principal); L97.922 Non-pressure chronic ulcer of unspecified part of left lower leg with fat layer exposed; L97.812 Non-pressure chronic ulcer of other part of right lower leg with fat layer exposed; I87.2 Venous insufficiency (chronic) (peripheral); S61.412D Laceration without foreign body of left hand, subsequent encounter; X58.XXXD Exposure to other specified factors, subsequent encounter
CPT/HCPCS: 82947; G0277

== ENCOUNTER 2021-01-23 00:09 | Day surgery (SDC) | payer OTHER ==
[2021-03-05] MEDS ORDERED: LOSA50 PO (11:36)
[2021-03-05] MEDS ORDERED: LEVFLO500 PO (11:37)
[2021-03-05] MEDS ORDERED: PREG50 PO (11:37)
[2021-03-25] MEDS ORDERED: Bactrim Ds Tab1 EACH PO ×2 (10:42→14:53)
== END 2021-01-23 22:43 | disposition home or self-care (01) ==
LOC: HBO 00:09
DX: E11.622 Type 2 diabetes mellitus with other skin ulcer (principal); L97.922 Non-pressure chronic ulcer of unspecified part of left lower leg with fat layer exposed; L97.812 Non-pressure chronic ulcer of other part of right lower leg with fat layer exposed; I87.2 Venous insufficiency (chronic) (peripheral); S61.412D Laceration without foreign body of left hand, subsequent encounter; Z79.84 Long term (current) use of oral hypoglycemic drugs
CPT/HCPCS: 82947; G0277

== ENCOUNTER 2021-01-24 00:13 | Day surgery (SDC) | payer OTHER ==
[2021-03-05] MEDS ORDERED: LOSA50 PO (11:36)
[2021-03-05] MEDS ORDERED: LEVFLO500 PO (11:37)
[2021-03-05] MEDS ORDERED: PREG50 PO (11:37)
[2021-03-25] MEDS ORDERED: Bactrim Ds Tab1 EACH PO ×2 (10:42→14:53)
== END 2021-01-24 23:05 | disposition home or self-care (01) ==
LOC: HBO 00:13
DX: E11.622 Type 2 diabetes mellitus with other skin ulcer (principal); L97.812 Non-pressure chronic ulcer of other part of right lower leg with fat layer exposed; L97.822 Non-pressure chronic ulcer of other part of left lower leg with fat layer exposed; I87.2 Venous insufficiency (chronic) (peripheral); S61.412D Laceration without foreign body of left hand, subsequent encounter; X58.XXXD Exposure to other specified factors, subsequent encounter
CPT/HCPCS: 82947; G0463

== ENCOUNTER 2021-01-25 01:06 | Day surgery (SDC) | payer OTHER ==
[2021-03-05] MEDS ORDERED: LOSA50 PO (11:36)
[2021-03-05] MEDS ORDERED: LEVFLO500 PO (11:37)
[2021-03-05] MEDS ORDERED: PREG50 PO (11:37)
[2021-03-25] MEDS ORDERED: Bactrim Ds Tab1 EACH PO ×2 (10:42→14:53)
== END 2021-01-25 22:47 | disposition home or self-care (01) ==
LOC: HBO 01:06
DX: E11.622 Type 2 diabetes mellitus with other skin ulcer (principal); L97.812 Non-pressure chronic ulcer of other part of right lower leg with fat layer exposed; L97.922 Non-pressure chronic ulcer of unspecified part of left lower leg with fat layer exposed; I87.2 Venous insufficiency (chronic) (peripheral)
CPT/HCPCS: 82947; A9270; G0277

== ENCOUNTER 2021-01-25 01:09 | Day surgery (SDC) | payer OTHER ==
[2021-03-05] MEDS ORDERED: LOSA50 PO (11:36)
[2021-03-05] MEDS ORDERED: LEVFLO500 PO (11:37)
[2021-03-05] MEDS ORDERED: PREG50 PO (11:37)
[2021-03-25] MEDS ORDERED: Bactrim Ds Tab1 EACH PO ×2 (10:42→14:53)
== END 2021-01-25 22:48 | disposition home or self-care (01) ==
LOC: WOUND 01:09
DX: E11.622 Type 2 diabetes mellitus with other skin ulcer (principal); L97.922 Non-pressure chronic ulcer of unspecified part of left lower leg with fat layer exposed; L97.812 Non-pressure chronic ulcer of other part of right lower leg with fat layer exposed; I87.2 Venous insufficiency (chronic) (peripheral)
CPT/HCPCS: A9270

== ENCOUNTER 2021-01-28 01:22 | Day surgery (SDC) | payer OTHER ==
[2021-03-05] MEDS ORDERED: LOSA50 PO (11:36)
[2021-03-05] MEDS ORDERED: LEVFLO500 PO (11:37)
[2021-03-05] MEDS ORDERED: PREG50 PO (11:37)
[2021-03-25] MEDS ORDERED: Bactrim Ds Tab1 EACH PO ×2 (10:42→14:53)
== END 2021-01-28 23:10 | disposition home or self-care (01) ==
LOC: HBO 01:22
DX: E11.622 Type 2 diabetes mellitus with other skin ulcer (principal); L97.922 Non-pressure chronic ulcer of unspecified part of left lower leg with fat layer exposed; L97.812 Non-pressure chronic ulcer of other part of right lower leg with fat layer exposed; I87.2 Venous insufficiency (chronic) (peripheral); S61.412D Laceration without foreign body of left hand, subsequent encounter; X58.XXXD Exposure to other specified factors, subsequent encounter
CPT/HCPCS: 82947; G0277

== ENCOUNTER 2021-01-29 00:17 | Day surgery (SDC) | payer OTHER ==
[2021-03-05] MEDS ORDERED: LOSA50 PO (11:36)
[2021-03-05] MEDS ORDERED: LEVFLO500 PO (11:37)
[2021-03-05] MEDS ORDERED: PREG50 PO (11:37)
[2021-03-25] MEDS ORDERED: Bactrim Ds Tab1 EACH PO ×2 (10:42→14:53)
== END 2021-01-29 22:57 | disposition home or self-care (01) ==
LOC: HBO 00:17
DX: E11.622 Type 2 diabetes mellitus with other skin ulcer (principal); L97.922 Non-pressure chronic ulcer of unspecified part of left lower leg with fat layer exposed; L97.812 Non-pressure chronic ulcer of other part of right lower leg with fat layer exposed; I87.2 Venous insufficiency (chronic) (peripheral); S61.412D Laceration without foreign body of left hand, subsequent encounter; X58.XXXD Exposure to other specified factors, subsequent encounter
CPT/HCPCS: 82947; G0277

== ENCOUNTER 2021-01-31 00:23 | Day surgery (SDC) | payer OTHER ==
[2021-03-05] MEDS ORDERED: LOSA50 PO (11:36)
[2021-03-05] MEDS ORDERED: PREG50 PO (11:37)
[2021-03-05] MEDS ORDERED: LEVFLO500 PO (11:37)
[2021-03-25] MEDS ORDERED: Bactrim Ds Tab1 EACH PO ×2 (10:42→14:53)
== END 2021-01-31 23:00 | disposition home or self-care (01) ==
LOC: HBO 00:23
DX: E11.622 Type 2 diabetes mellitus with other skin ulcer (principal); L97.922 Non-pressure chronic ulcer of unspecified part of left lower leg with fat layer exposed; L97.812 Non-pressure chronic ulcer of other part of right lower leg with fat layer exposed; I87.2 Venous insufficiency (chronic) (peripheral); S61.412D Laceration without foreign body of left hand, subsequent encounter; X58.XXXD Exposure to other specified factors, subsequent encounter
CPT/HCPCS: 82947; G0277

== ENCOUNTER 2021-02-01 00:53 | Day surgery (SDC) | payer OTHER ==
[2021-03-05] MEDS ORDERED: LOSA50 PO (11:36)
[2021-03-05] MEDS ORDERED: LEVFLO500 PO (11:37)
[2021-03-05] MEDS ORDERED: PREG50 PO (11:37)
[2021-03-25] MEDS ORDERED: Bactrim Ds Tab1 EACH PO ×2 (10:42→14:53)
== END 2021-02-01 23:09 | disposition home or self-care (01) ==
LOC: HBO 00:53
DX: E11.622 Type 2 diabetes mellitus with other skin ulcer (principal); L97.812 Non-pressure chronic ulcer of other part of right lower leg with fat layer exposed; L97.922 Non-pressure chronic ulcer of unspecified part of left lower leg with fat layer exposed; I87.2 Venous insufficiency (chronic) (peripheral)
CPT/HCPCS: 82947; A9270; G0277

== ENCOUNTER 2021-02-01 00:59 | Day surgery (SDC) | payer OTHER ==
[2021-03-05] MEDS ORDERED: LOSA50 PO (11:36)
[2021-03-05] MEDS ORDERED: LEVFLO500 PO (11:37)
[2021-03-05] MEDS ORDERED: PREG50 PO (11:37)
[2021-03-25] MEDS ORDERED: Bactrim Ds Tab1 EACH PO ×2 (10:42→14:53)
== END 2021-02-01 23:09 | disposition home or self-care (01) ==
LOC: WOUND 00:59
DX: E11.622 Type 2 diabetes mellitus with other skin ulcer (principal); L97.825 Non-pressure chronic ulcer of other part of left lower leg with muscle involvement without evidence of necrosis; L97.815 Non-pressure chronic ulcer of other part of right lower leg with muscle involvement without evidence of necrosis; L97.812 Non-pressure chronic ulcer of other part of right lower leg with fat layer exposed; I87.2 Venous insufficiency (chronic) (peripheral); S61.412D Laceration without foreign body of left hand, subsequent encounter; E66.9 Obesity, unspecified; J44.9 Chronic obstructive pulmonary disease, unspecified; E11.22 Type 2 diabetes mellitus with diabetic chronic kidney disease; I12.0 Hypertensive chronic kidney disease with stage 5 chronic kidney disease or end stage renal disease; N18.6 End stage renal disease; X58.XXXD Exposure to other specified factors, subsequent encounter; Z87.891 Personal history of nicotine dependence
CPT/HCPCS: A9270

== ENCOUNTER 2021-02-04 00:09 | Day surgery (SDC) | payer OTHER ==
[2021-03-05] MEDS ORDERED: LOSA50 PO (11:36)
[2021-03-05] MEDS ORDERED: PREG50 PO (11:37)
[2021-03-05] MEDS ORDERED: LEVFLO500 PO (11:37)
[2021-03-25] MEDS ORDERED: Bactrim Ds Tab1 EACH PO ×2 (10:42→14:53)
== END 2021-02-04 23:06 | disposition home or self-care (01) ==
LOC: HBO 00:09
DX: E11.622 Type 2 diabetes mellitus with other skin ulcer (principal); L97.812 Non-pressure chronic ulcer of other part of right lower leg with fat layer exposed; L97.922 Non-pressure chronic ulcer of unspecified part of left lower leg with fat layer exposed; I87.2 Venous insufficiency (chronic) (peripheral); S61.412D Laceration without foreign body of left hand, subsequent encounter; X58.XXXD Exposure to other specified factors, subsequent encounter
CPT/HCPCS: 82947; G0277

== ENCOUNTER 2021-02-05 00:32 | Day surgery (SDC) | payer OTHER ==
[2021-03-05] MEDS ORDERED: LOSA50 PO (11:36)
[2021-03-05] MEDS ORDERED: PREG50 PO (11:37)
[2021-03-05] MEDS ORDERED: LEVFLO500 PO (11:37)
[2021-03-25] MEDS ORDERED: Bactrim Ds Tab1 EACH PO ×2 (10:42→14:53)
== END 2021-02-05 22:48 | disposition home or self-care (01) ==
LOC: HBO 00:32
DX: E11.622 Type 2 diabetes mellitus with other skin ulcer (principal); L97.922 Non-pressure chronic ulcer of unspecified part of left lower leg with fat layer exposed; L97.812 Non-pressure chronic ulcer of other part of right lower leg with fat layer exposed; I87.2 Venous insufficiency (chronic) (peripheral); S61.412D Laceration without foreign body of left hand, subsequent encounter; X58.XXXD Exposure to other specified factors, subsequent encounter
CPT/HCPCS: 82947; G0277

== ENCOUNTER 2021-02-06 00:43 | Day surgery (SDC) | payer OTHER ==
[2021-03-05] MEDS ORDERED: LOSA50 PO (11:36)
[2021-03-05] MEDS ORDERED: LEVFLO500 PO (11:37)
[2021-03-05] MEDS ORDERED: PREG50 PO (11:37)
[2021-03-25] MEDS ORDERED: Bactrim Ds Tab1 EACH PO ×2 (10:42→14:53)
== END 2021-02-06 22:46 | disposition home or self-care (01) ==
LOC: HBO 00:43
DX: E11.622 Type 2 diabetes mellitus with other skin ulcer (principal); L97.812 Non-pressure chronic ulcer of other part of right lower leg with fat layer exposed; L97.922 Non-pressure chronic ulcer of unspecified part of left lower leg with fat layer exposed; I87.2 Venous insufficiency (chronic) (peripheral); S61.412D Laceration without foreign body of left hand, subsequent encounter; X58.XXXD Exposure to other specified factors, subsequent encounter
CPT/HCPCS: 82947; G0277

== ENCOUNTER 2021-02-07 00:20 | Day surgery (SDC) | payer OTHER ==
[2021-03-05] MEDS ORDERED: LOSA50 PO (11:36)
[2021-03-05] MEDS ORDERED: PREG50 PO (11:37)
[2021-03-05] MEDS ORDERED: LEVFLO500 PO (11:37)
[2021-03-25] MEDS ORDERED: Bactrim Ds Tab1 EACH PO ×2 (10:42→14:53)
== END 2021-02-07 23:00 | disposition home or self-care (01) ==
LOC: HBO 00:20
DX: E11.622 Type 2 diabetes mellitus with other skin ulcer (principal); L97.922 Non-pressure chronic ulcer of unspecified part of left lower leg with fat layer exposed; L97.812 Non-pressure chronic ulcer of other part of right lower leg with fat layer exposed; I87.2 Venous insufficiency (chronic) (peripheral); S61.412D Laceration without foreign body of left hand, subsequent encounter; X58.XXXD Exposure to other specified factors, subsequent encounter
CPT/HCPCS: 82947; G0277

== ENCOUNTER 2021-02-08 00:35 | Day surgery (SDC) | payer OTHER ==
[2021-03-05] MEDS ORDERED: LOSA50 PO (11:36)
[2021-03-05] MEDS ORDERED: LEVFLO500 PO (11:37)
[2021-03-05] MEDS ORDERED: PREG50 PO (11:37)
[2021-03-25] MEDS ORDERED: Bactrim Ds Tab1 EACH PO ×2 (10:42→14:53)
== END 2021-02-08 22:44 | disposition home or self-care (01) ==
LOC: HBO 00:35
DX: E11.622 Type 2 diabetes mellitus with other skin ulcer (principal); L97.922 Non-pressure chronic ulcer of unspecified part of left lower leg with fat layer exposed; L97.812 Non-pressure chronic ulcer of other part of right lower leg with fat layer exposed; I87.2 Venous insufficiency (chronic) (peripheral); S61.412D Laceration without foreign body of left hand, subsequent encounter; X58.XXXD Exposure to other specified factors, subsequent encounter
CPT/HCPCS: 82947; A9270; G0277

== ENCOUNTER 2021-02-11 00:43 | Day surgery (SDC) | payer OTHER ==
[2021-03-05] MEDS ORDERED: LOSA50 PO (11:36)
[2021-03-05] MEDS ORDERED: PREG50 PO (11:37)
[2021-03-05] MEDS ORDERED: LEVFLO500 PO (11:37)
[2021-03-25] MEDS ORDERED: Bactrim Ds Tab1 EACH PO ×2 (10:42→14:53)
== END 2021-02-11 23:02 | disposition home or self-care (01) ==
LOC: HBO 00:43
DX: E11.622 Type 2 diabetes mellitus with other skin ulcer (principal); L97.922 Non-pressure chronic ulcer of unspecified part of left lower leg with fat layer exposed; L97.812 Non-pressure chronic ulcer of other part of right lower leg with fat layer exposed; I87.2 Venous insufficiency (chronic) (peripheral); S61.412D Laceration without foreign body of left hand, subsequent encounter; X58.XXXD Exposure to other specified factors, subsequent encounter
CPT/HCPCS: 82947; G0277

== ENCOUNTER 2021-02-13 00:19 | Day surgery (SDC) | payer OTHER ==
[2021-03-05] MEDS ORDERED: LOSA50 PO (11:36)
[2021-03-05] MEDS ORDERED: PREG50 PO (11:37)
[2021-03-05] MEDS ORDERED: LEVFLO500 PO (11:37)
[2021-03-25] MEDS ORDERED: Bactrim Ds Tab1 EACH PO ×2 (10:42→14:53)
== END 2021-02-13 22:42 | disposition home or self-care (01) ==
LOC: HBO 00:19
DX: E11.622 Type 2 diabetes mellitus with other skin ulcer (principal); L97.812 Non-pressure chronic ulcer of other part of right lower leg with fat layer exposed; L97.922 Non-pressure chronic ulcer of unspecified part of left lower leg with fat layer exposed; I87.2 Venous insufficiency (chronic) (peripheral); S61.412D Laceration without foreign body of left hand, subsequent encounter
CPT/HCPCS: 82947; G0277

== ENCOUNTER 2021-02-14 00:11 | Day surgery (SDC) | payer OTHER ==
[2021-03-05] MEDS ORDERED: LOSA50 PO (11:36)
[2021-03-05] MEDS ORDERED: PREG50 PO (11:37)
[2021-03-05] MEDS ORDERED: LEVFLO500 PO (11:37)
[2021-03-25] MEDS ORDERED: Bactrim Ds Tab1 EACH PO ×2 (10:42→14:53)
== END 2021-02-14 23:37 | disposition home or self-care (01) ==
LOC: HBO 00:11
DX: L89.629 Pressure ulcer of left heel, unspecified stage (principal); I73.9 Peripheral vascular disease, unspecified
CPT/HCPCS: 82947; G0277

== ENCOUNTER 2021-02-15 02:05 | Day surgery (SDC) | payer OTHER ==
[2021-03-05] MEDS ORDERED: LOSA50 PO (11:36)
[2021-03-05] MEDS ORDERED: LEVFLO500 PO (11:37)
[2021-03-05] MEDS ORDERED: PREG50 PO (11:37)
[2021-03-25] MEDS ORDERED: Bactrim Ds Tab1 EACH PO ×2 (10:42→14:53)
== END 2021-02-15 22:47 | disposition home or self-care (01) ==
LOC: HBO 02:05
DX: E11.622 Type 2 diabetes mellitus with other skin ulcer (principal); L97.922 Non-pressure chronic ulcer of unspecified part of left lower leg with fat layer exposed; L97.812 Non-pressure chronic ulcer of other part of right lower leg with fat layer exposed; I87.2 Venous insufficiency (chronic) (peripheral); S61.412D Laceration without foreign body of left hand, subsequent encounter; X58.XXXD Exposure to other specified factors, subsequent encounter
CPT/HCPCS: 82947; A9270; G0277

== ENCOUNTER 2021-02-18 02:18 | Day surgery (SDC) | payer OTHER ==
[2021-03-05] MEDS ORDERED: LOSA50 PO (11:36)
[2021-03-05] MEDS ORDERED: PREG50 PO (11:37)
[2021-03-05] MEDS ORDERED: LEVFLO500 PO (11:37)
[2021-03-25] MEDS ORDERED: Bactrim Ds Tab1 EACH PO ×2 (10:42→14:53)
== END 2021-02-18 23:41 | disposition home or self-care (01) ==
LOC: HBO 02:18
DX: E11.622 Type 2 diabetes mellitus with other skin ulcer (principal); L97.922 Non-pressure chronic ulcer of unspecified part of left lower leg with fat layer exposed; L97.812 Non-pressure chronic ulcer of other part of right lower leg with fat layer exposed; I87.2 Venous insufficiency (chronic) (peripheral); S61.412D Laceration without foreign body of left hand, subsequent encounter; X58.XXXD Exposure to other specified factors, subsequent encounter
CPT/HCPCS: 82947; G0277

== ENCOUNTER 2021-02-19 08:00 | Day surgery (SDC) | payer OTHER ==
[2021-03-05] MEDS ORDERED: LOSA50 PO (11:36)
[2021-03-05] MEDS ORDERED: LEVFLO500 PO (11:37)
[2021-03-05] MEDS ORDERED: PREG50 PO (11:37)
[2021-03-25] MEDS ORDERED: Bactrim Ds Tab1 EACH PO ×2 (10:42→14:53)
== END 2021-02-19 22:59 | disposition home or self-care (01) ==
LOC: HBO 08:00
DX: E11.622 Type 2 diabetes mellitus with other skin ulcer (principal); L97.922 Non-pressure chronic ulcer of unspecified part of left lower leg with fat layer exposed; L97.812 Non-pressure chronic ulcer of other part of right lower leg with fat layer exposed; I87.2 Venous insufficiency (chronic) (peripheral); S61.412D Laceration without foreign body of left hand, subsequent encounter; X58.XXXD Exposure to other specified factors, subsequent encounter
CPT/HCPCS: 82947; G0277

== ENCOUNTER 2021-02-20 01:20 | Day surgery (SDC) | payer OTHER ==
[2021-03-05] MEDS ORDERED: LOSA50 PO (11:36)
[2021-03-05] MEDS ORDERED: PREG50 PO (11:37)
[2021-03-05] MEDS ORDERED: LEVFLO500 PO (11:37)
[2021-03-25] MEDS ORDERED: Bactrim Ds Tab1 EACH PO ×2 (10:42→14:53)
== END 2021-02-20 23:03 | disposition home or self-care (01) ==
LOC: HBO
DX: E11.622 Type 2 diabetes mellitus with other skin ulcer (principal); L97.922 Non-pressure chronic ulcer of unspecified part of left lower leg with fat layer exposed; L97.812 Non-pressure chronic ulcer of other part of right lower leg with fat layer exposed; I87.2 Venous insufficiency (chronic) (peripheral); S61.412D Laceration without foreign body of left hand, subsequent encounter; X58.XXXD Exposure to other specified factors, subsequent encounter
CPT/HCPCS: 36415; 80053; 82947; 83036; 85025; G0277

== ENCOUNTER 2021-02-21 00:18 | Day surgery (SDC) | payer OTHER ==
[2021-03-05] MEDS ORDERED: LOSA50 PO (11:36)
[2021-03-05] MEDS ORDERED: PREG50 PO (11:37)
[2021-03-05] MEDS ORDERED: LEVFLO500 PO (11:37)
[2021-03-25] MEDS ORDERED: Bactrim Ds Tab1 EACH PO ×2 (10:42→14:53)
== END 2021-02-21 22:56 | disposition home or self-care (01) ==
LOC: HBO
DX: E11.622 Type 2 diabetes mellitus with other skin ulcer (principal); L97.922 Non-pressure chronic ulcer of unspecified part of left lower leg with fat layer exposed; L97.812 Non-pressure chronic ulcer of other part of right lower leg with fat layer exposed; I87.2 Venous insufficiency (chronic) (peripheral); S61.412D Laceration without foreign body of left hand, subsequent encounter; X58.XXXD Exposure to other specified factors, subsequent encounter
CPT/HCPCS: 82947; G0277

== ENCOUNTER → 2021-02-25 | Outpatient (CLI) | payer OTHER ==
[~2021-02-25] MED LIST changes: +ALBU90OI INH; +AMLO5 PO; +Amitriptyline H10 MG PO; +CLOP75 PO; +EUTHYROX125 MCG PO; +FAMO20 PO; +FISH OIL 1,2001 EAC7 PO; +GLUC500 PO; +LOSA50 PO; +PREG50 PO; +SULFAMETHOXAZO1 EAC1 PO
[2021-02-25 15:08] LABS: Bilirubin, Urine Neg (Neg); Blood, Urine Neg (Neg); Glucose Qualitative, Urine Neg (Neg); Ketones, Urine Neg (Neg); Leukocyte Esterase, Urine 3+ (Neg); Nitrite, Urine Neg (Neg); Protein, Urine 2+ (Neg); Urobilinogen, Urine NORM (Normal)
[2021-02-25 15:20] LABS: Color, Urine Yellow (P-Yellow)
[2021-02-25 15:21] LABS: Appearance, Urine Hazy (Clear)
[2021-02-25 15:23] LABS: Bacteria Few /hpf; Red Blood Cells, Urine 0-2 /hpf (0-2); Squamous Epithelial Cells Mod /hpf (Few)
== END | disposition home or self-care (01) ==
LOC: LAB SHORT 12:40 → LAB 12:40
PROVIDERS: Internal Medicine
DX: R30.0 Dysuria (principal)
CPT/HCPCS: 81001; 87086

== ENCOUNTER 2021-03-15 00:50 | Day surgery (SDC) | payer OTHER ==
[~2021-03-15 00:50] MED LIST changes: -SULFAMETHOXAZO1 EAC1 PO
== END 2021-03-15 23:28 | disposition home or self-care (01) ==
LOC: WOUND 00:50
DX: E11.622 Type 2 diabetes mellitus with other skin ulcer (principal); L97.822 Non-pressure chronic ulcer of other part of left lower leg with fat layer exposed; L97.812 Non-pressure chronic ulcer of other part of right lower leg with fat layer exposed; I87.2 Venous insufficiency (chronic) (peripheral); S61.412D Laceration without foreign body of left hand, subsequent encounter; X58.XXXD Exposure to other specified factors, subsequent encounter
CPT/HCPCS: A9270

== ENCOUNTER 2021-03-19 00:41 | Day surgery (SDC) | payer OTHER | END 2021-03-19 23:31 | disposition home or self-care (01) | LOC: WOUND 00:41 | DX: E11.622 Type 2 diabetes mellitus with other skin ulcer (principal); L97.815 Non-pressure chronic ulcer of other part of right lower leg with muscle involvement without evidence of necrosis; L97.812 Non-pressure chronic ulcer of other part of right lower leg with fat layer exposed; L97.822 Non-pressure chronic ulcer of other part of left lower leg with fat layer exposed; E11.621 Type 2 diabetes mellitus with foot ulcer; L97.519 Non-pressure chronic ulcer of other part of right foot with unspecified severity ==

== ENCOUNTER 2021-03-29 02:09 | Day surgery (SDC) | payer OTHER ==
[~2021-03-29 02:09] MED LIST changes: -ALBU90OI INH; -AMLO5 PO; -Amitriptyline H10 MG PO; -CLOP75 PO; -EUTHYROX125 MCG PO; -FAMO20 PO; -FISH OIL 1,2001 EAC7 PO; -GLUC500 PO
== END 2021-03-29 23:12 | disposition home or self-care (01) ==
LOC: WOUND 02:09
DX: E11.622 Type 2 diabetes mellitus with other skin ulcer (principal); L97.922 Non-pressure chronic ulcer of unspecified part of left lower leg with fat layer exposed; L97.812 Non-pressure chronic ulcer of other part of right lower leg with fat layer exposed; I87.2 Venous insufficiency (chronic) (peripheral); S61.412D Laceration without foreign body of left hand, subsequent encounter; X58.XXXD Exposure to other specified factors, subsequent encounter; I12.9 Hypertensive chronic kidney disease with stage 1 through stage 4 chronic kidney disease, or unspecified chronic kidney disease; N18.9 Chronic kidney disease, unspecified; E11.22 Type 2 diabetes mellitus with diabetic chronic kidney disease; E03.9 Hypothyroidism, unspecified; E78.5 Hyperlipidemia, unspecified; Z87.891 Personal history of nicotine dependence
CPT/HCPCS: A9270

== ENCOUNTER 2021-04-02 16:01 | Inpatient (IN) | payer OTHER, MEDICARE ==
[~2021-04-02] VITALS: Ht 157.5 cm; Wt 94.8 kg
[2021-04-02 16:39] LABS: Source, Urine Clean Catch
[2021-04-02 16:46] LABS: BASOPHILS ABSOLUTE AUTO 0.08 K/mm3 (0.00-0.23); BASOPHILS PERCENT AUTO 1 % (0-2); EOSINOPHILS ABSOLUTE AUTO 0.06 K/mm3 (0.00-0.68); EOSINOPHILS PERCENT AUTO 1 % (0-6); Hematocrit 35.8 % (33.0-51.0); Hemoglobin 11.5 g/dL (11.5-16.0); IMMATURE GRAN ABSOLUTE AUTO 0.07 K/mm3 (0.00-0.10); IMMATURE GRAN PERCENT AUTO 1 % (0-1); LYMPHOCYTES PERCENT AUTO 8 % (21-46); MONOCYTES ABSOLUTE AUTO 1.13 K/mm3 (0.16-1.47); MONOCYTES PERCENT AUTO 9 % (4-13); Mean Corpuscular HGB 28.8 pg (26.0-34.0); Mean Corpuscular HGB Conc 32.1 g/dL (31.5-36.5); Mean Corpuscular Volume 90 fL (80-100); Mean Platelet Volume 9.4 fL (9.1-12.4); NEUTROPHILS ABSOLUTE AUTO 10.89 K/mm3 (1.96-9.15); NEUTROPHILS PERCENT AUTO 82 % (41-73); Platelet Count 423 K/mm3 (150-400); RDW Coefficient Variation 12.3 % (11.7-14.2); RDW Standard Deviation 40.4 fL (35.1-46.3); Red Blood Cell Count 3.99 M/mm3 (3.80-5.20); White Blood Cell Count 13.23 K/mm3 (4.00-11.30)
[2021-04-02 16:54] LABS: Appearance, Urine Hazy (Clear); Bilirubin, Urine Neg (Neg); Blood, Urine Neg (Neg); Color, Urine Yellow (P-Yellow); Glucose Qualitative, Urine Neg (Neg); Ketones, Urine Neg (Neg); Leukocyte Esterase, Urine 3+ (Neg); Nitrite, Urine Neg (Neg); Protein, Urine 2+ (Neg); Specific Gravity, Urine 1.015 (1.003-1.022); Urobilinogen, Urine NORM (Normal)
[2021-04-02 17:10] LABS: Red Blood Cells, Urine 0-2 /hpf (0-2)
[2021-04-02 17:11] LABS: Bacteria Mod /hpf; Squamous Epithelial Cells Few /hpf (Few)
[2021-04-02 17:12] LABS: Alanine Aminotransfer (ALT/SGP 29 U/L (12-78); Albumin/Globulin Ratio 0.6 (0.8-1.8); Alk Phos 99 U/L (50-136); Anion Gap 6 mmol/L (6-16); Aspartate Aminotrans (AST/SGOT 16 U/L (12-37); Bilirubin, Total 0.4 mg/dL (0.1-1.0); Blood Urea Nitrogen 45 mg/dL (8-24); Bun/Creatinine Ratio 31.2 (12.0-20.0); CO2, Blood 25 mmol/L (21-32); Calcium, Blood 11.3 mg/dL (8.5-10.1); Chloride, Blood 113 mmol/L (98-108); Creatinine, Blood 1.44 mg/dL (0.40-1.00); Glomerular Filtration Rate 37 (60-); Glucose, Blood 198 mg/dL (70-99); Potassium, Blood 4.6 mmol/L (3.5-5.5); Sodium, Blood 144 mmol/L (136-145); Troponin I <0.015 ng/mL (0.000-0.040)
[2021-04-02 17:12] LABS: Yeast/Fungi Urine Mod /hpf
[2021-04-02] MEDS ORDERED: SERT50 PO (18:25)
[2021-04-02] MEDS ORDERED: ALLO100 PO (18:25)
[2021-04-02] MEDS ORDERED: MONT10T PO (18:26)
[2021-04-02] MEDS ORDERED: CLOP75 PO (18:26)
[2021-04-02] MEDS ORDERED: Amitriptyline H10 MG PO (18:27)
[2021-04-02] MEDS ORDERED: EUTHYROX125 MCG PO (18:27)
[2021-04-02] MEDS ORDERED: QUIN10 PO (18:27)
[2021-04-02] MEDS ORDERED: GLIM2 PO (18:27)
[2021-04-02] MEDS ORDERED: AMLO5 PO (18:37)
[2021-04-02] MEDS ORDERED: TORSE20 PO (18:41)
[2021-04-02] MEDS ORDERED: FISH OIL 1,2001 EAC7 PO (18:41)
[2021-04-02] MEDS ORDERED: ALBU90OI INH (18:42)
[2021-04-02] MEDS ORDERED: GLUC500 PO (18:42)
[2021-04-02] MEDS ORDERED: ASCO500 PO (18:42)
[2021-04-02] MEDS ORDERED: FAMO20 PO (18:43)
[2021-04-02] MEDS ORDERED: ACET325 PO (18:44)
--- NOTE | 2021-04-03 06:34 | NUR ---
SHIFT SUMMARY PATIENT ARRIVED TO ROOM 328 AT 2100 VIA STRETCHER. SHE IS ALERT AND ORIENTED TO SELF ONLY AND REMAINS ON BEDREST AT THIS TIME. SHE HAD NO COMPLAINTS OF PAIN OR SHORTNESS OF BREATH. SHE WAS TIRED AND LETHARGIC UPON ARRIVAL. PATIENT HAS THREE WOUNDS ON HER LOWER LEGS. WOUNDS WERE CLEANSED, PHOTOGRAPHED, AND REDRESSED. PHOTOS PLACED IN HER CHART. IVS PATENT AND FLUSHED. BED IN LOWEST POSITION WITH WHEELS LOCKED AND ALARM ON. CALL LIGHT WITHIN REACH. REPORT GIVEN TO ONCOMING RN.
[2021-04-03 07:02] LABS: Hematocrit 30.8 % (33.0-51.0); Hemoglobin 9.8 g/dL (11.5-16.0); Mean Corpuscular HGB 28.7 pg (26.0-34.0); Mean Corpuscular HGB Conc 31.8 g/dL (31.5-36.5); Mean Corpuscular Volume 90 fL (80-100); Mean Platelet Volume 9.7 fL (9.1-12.4); Platelet Count 384 K/mm3 (150-400); RDW Coefficient Variation 12.2 % (11.7-14.2); RDW Standard Deviation 40.6 fL (35.1-46.3); Red Blood Cell Count 3.41 M/mm3 (3.80-5.20); White Blood Cell Count 11.63 K/mm3 (4.00-11.30)
[2021-04-03 07:09] LABS: Bun/Creatinine Ratio 34.1 (12.0-20.0); Calcium, Blood 10.3 mg/dL (8.5-10.1); Creatinine, Blood 1.38 mg/dL (0.40-1.00); Potassium, Blood 4.2 mmol/L (3.5-5.5)
--- NOTE | 2021-04-03 18:04 | NUR ---
SHIFT SUMMARY DR YANES CAME TO BEDSIDE. AWAITING DR ADAME AND HAZEL TO COME ASSESS. WOUNDS ON LOWER LEGS CLEANED AND REDRESSED. TAINA TAKEN OUT AT 1730. SWOLLEN AND PAINFUL L WRIST AND L HIP SEEMS PAINFUL, DR JENKINS INFORMED. SOME SWALLOWING ISSUES NOTED, CONSULT TO STUDIO DESIGNER. CONFUSED AND SLEEPY THIS MORNING, BUT MUCH MORE AWAKEK THIS AFTERNOON, BUT STILL CONFUSED. KNOWS SHE IS IN [place] IN A MEDICAL FACILITY. CALL LIGHT IN REACH, [facility]
[2021-04-04] MEDS ORDERED: GLIM2 PO (04:55)
[2021-04-04] MEDS ORDERED: QUIN10 PO (04:56)
[2021-04-04] MEDS ORDERED: SULFAMETHOXAZO1 EAC1 PO (04:58)
[2021-04-04 06:24] LABS: BASOPHILS ABSOLUTE AUTO 0.05 K/mm3 (0.00-0.23); BASOPHILS PERCENT AUTO 1 % (0-2); EOSINOPHILS ABSOLUTE AUTO 0.23 K/mm3 (0.00-0.68); EOSINOPHILS PERCENT AUTO 2 % (0-6); Hematocrit 30.9 % (33.0-51.0); Hemoglobin 9.8 g/dL (11.5-16.0); IMMATURE GRAN ABSOLUTE AUTO 0.04 K/mm3 (0.00-0.10); IMMATURE GRAN PERCENT AUTO 0 % (0-1); LYMPHOCYTES ABSOLUTE AUTO 0.89 K/mm3 (0.84-5.20); LYMPHOCYTES PERCENT AUTO 9 % (21-46); MONOCYTES ABSOLUTE AUTO 0.85 K/mm3 (0.16-1.47); MONOCYTES PERCENT AUTO 9 % (4-13); Mean Corpuscular HGB 28.6 pg (26.0-34.0); Mean Corpuscular HGB Conc 31.7 g/dL (31.5-36.5); Mean Corpuscular Volume 90 fL (80-100); Mean Platelet Volume 9.6 fL (9.1-12.4); NEUTROPHILS ABSOLUTE AUTO 7.86 K/mm3 (1.96-9.15); NEUTROPHILS PERCENT AUTO 79 % (41-73); Platelet Count 371 K/mm3 (150-400); RDW Coefficient Variation 12.2 % (11.7-14.2); RDW Standard Deviation 40.2 fL (35.1-46.3); Red Blood Cell Count 3.43 M/mm3 (3.80-5.20); White Blood Cell Count 9.92 K/mm3 (4.00-11.30)
[2021-04-04 06:44] LABS: Bun/Creatinine Ratio 31.4 (12.0-20.0); Calcium, Blood 10.4 mg/dL (8.5-10.1); Creatinine, Blood 1.21 mg/dL (0.40-1.00); Potassium, Blood 4.1 mmol/L (3.5-5.5)
--- NOTE | 2021-04-04 19:12 | NUR ---
SHIFT SUMMARY FCO SHOWED NONVERBAL S/S PAIN IN LLE, XR SHOWED NO FRACTURE. DR OLIVA CAME AND WROTE WOUND CARE ORDERS. DR ADAME'S CLINICAL VETERINARIAN CAME AND ASSESSED PT. DR YANES ALSO ROUNDED ON PT. INCONTINENT URINE, HAD BM THIS SHIFT. LOW UO, ONE LITER NS ORDERED BY DR JENKINS. COMPLIANCE FIELD TECHNICIAN CAME AND WROTE FOR MECH/SOFT DIET. CALLED RT TO PUT ON CPAP. DAUGHTER VISITED. PT/OT WORKED WITH PT, SHE WAS UNABLE TO SIT AT EOB WITH MAX AO2 TOOK MEDS PRESCRIBED. CALL LIGHT IN REACH, [facility]
--- NOTE | 2021-04-05 05:58 | NUR ---
SHIFT SUMMARY NO ACUTE CHANGES TO REPORT THIS SHIFT. DR. OLIVA HAS ORDERED WOUND CARE FOR LEFT FIFTH TOE. WOUND CARE COMPLETED THIS SHIFT. DRESSING TO BLE WERE CHANGED YESTERDAY ON DAYSSHIFT, DAILY ORDERED. DRESSINGS TO BLE REMAIN IN PLACE, CLEAN AND DRY. PT IS PLESANTLY CONFUSED, BUT IS ABLE TO FOLLOW DIRECTIONS. IVF INFUSED THIS SHIFT. VITALS ARE STABLE. TOOK MEDS WHOLE WITH APPLESAUCE WITHOUT DIFFICULTY. IV ANTIBIOTICS CONTINUED. RESTFUL NIGHT. BED IN LOWEST POSITION, CALL LIGHT WITHIN REACH.
--- NOTE | 2021-04-05 18:32 | NUR ---
SHIFT SUMMARY PT IS A&O X2. PT THROUGHOUT SHIFT ASKED WHERE SHE WAS, PT DID NOT REMEMBER AT START OF SHIFT BUT BY END OF SHIFT WAS ABLE TO STATE IT. WHEN ASKING A QUESTION TO PT THAT SHE DID NOT KNOWN THE ANSWER TO SHE WOULD STATE "YOUR TRYING TO TRIP ME UP." PT PLESANT DURING SHIFT AND ACCEPTING OF CARE. PT DAUGHTER CAME TO VIST AND FACETIME FAMILY. PT JUST FINISHED DINNER, [employer] GUN HAND ASSISTED WITH FEEDING IN HOPES PT WOULD EAT MORE. PT NOW RESTING IN ROOM.
--- NOTE | 2021-04-05 19:05 | NUR ---
ASSUMED CARE RECEIVED REPORT FROM FELTON MAGALLANES. PT RESTING IN NO ACUTE DISTRESS. DENIES PAIN OR DISCOMFORT. NO ACUTE NEEDS ASSESSED AT THIS TIME. CALL LIGHT, POSSESSIONS IN REACH, BED IN LOW POSITION WITH ALARMS ON.
--- NOTE | 2021-04-06 06:00 | NUR ---
BROMINATION EQUIPMENT OPERATOR SUMMARY PT ASLEEP, IN NO ACUTE DISTRESS. VS REVIEWED,WNL; O2 SATS STABLE ON RA OR CPAP; PT DENIES SOB. NO S/S PAIN. RT HAND INCREASINGLY EDEMATOUS, IV SITE TO RAC INTACT, NO SIGNS OF INFILTRATION NOTED. EXTREMITY ELEVATED ON PILLOWS. PT DENIES DISCOMFORT. NO OTHER ACUTE CHANGES IN CONDITION NOTED OVERNIGHT. NO ACUTE NEEDS ASSESSED AT THIS TIME. CALL LIGHT, POSSESSIONS IN REACH, BED IN LOW POSITION WITH ALARMS ON. WILL CONTINUE TO PROVIDE CARE AND REPORT OFF TO ONCOMING RN.
[2021-04-06 08:14] LABS: Hematocrit 30.8 % (33.0-51.0); Hemoglobin 10.1 g/dL (11.5-16.0); Mean Corpuscular HGB 29.1 pg (26.0-34.0); Mean Corpuscular HGB Conc 32.8 g/dL (31.5-36.5); Mean Corpuscular Volume 89 fL (80-100); Mean Platelet Volume 9.6 fL (9.1-12.4); Platelet Count 392 K/mm3 (150-400); RDW Coefficient Variation 12.1 % (11.7-14.2); Red Blood Cell Count 3.47 M/mm3 (3.80-5.20); White Blood Cell Count 8.47 K/mm3 (4.00-11.30)
[2021-04-06 08:28] LABS: Anion Gap 5 mmol/L (6-16); Blood Urea Nitrogen 22 mg/dL (8-24); Bun/Creatinine Ratio 25.9 (12.0-20.0); CO2, Blood 25 mmol/L (21-32); Calcium, Blood 10.6 mg/dL (8.5-10.1); Chloride, Blood 114 mmol/L (98-108); Creatinine, Blood 0.85 mg/dL (0.40-1.00); Glomerular Filtration Rate >60 (60-); Glucose, Blood 188 mg/dL (70-99); Potassium, Blood 4.2 mmol/L (3.5-5.5); Sodium, Blood 144 mmol/L (136-145)
--- NOTE | 2021-04-06 18:24 | NUR ---
SHIFT SUMMARY PT HAS BEEN CONFUSED THROUGH OUT SHIFT. AT TIMES SHE KNOWS HER NAME AND . UNABLE TO STATE LOCATION OR YEAR. PT HAS BEEN PLESANT AND ACCEPTING OF CARE. O2 SATURATIONS HAS REMAINED ABOVE 90% WHILE ON ROOM AIR DURING SHIFT. DENIES PAIN. PT DECLINED DINNER, OFFERED TO HELP FEED HER BUT SHE WANTED TO SLEEP, HELD EVENING HUMALOG. PHYSICAL THERAPY WORKED WITH PT IN THE MORNING. NO ACUTE CHANGES TO REPORT DURING SHIFT. WILL CONTINUE TO MONITOR UNTIL SHIFT CHANGE.
--- NOTE | 2021-04-06 19:15 | NUR ---
ASSUMED CARE RECEIVED REPORT FROM FELTON PAT. PT RESTING, IN NO ACUTE DISTRESS. RESPS E/U. NO ACUTE NEEDS ASSESSED AT THIS TIME. CALL LIGHT IN REACH, BED ALARM ON.
--- NOTE | 2021-04-07 03:56 | NUR ---
TENANT RELATIONS COORDINATOR SUMMARY PT ASLEEP, IN NO ACUTE DISTRESS. VS REVIEWED,WNL. AFEBRILE THIS AM. HAS BEEN SLEEPING THROUGH MUCH OF THE NIGHT. A&O X1-2. O2 SATS WNL ON CPAP/RA. NO S/S RESPIRATORY DISTRESS NOTED. ENCOURAGED FOOD/FLUIDS; TOLERATED WELL. NO OTHER CHANGES IN CONDITION NOTED. PT REPOSITIONED AND KEPT COMFORTABLE. NO ACUTE NEEDS ASSESSED AT THIS TIME. CALL LIGHT, POSSESSIONS IN REACH, BED IN LOW POSITION WITH ALARMS ON. WILL CONTINUE TO PROVIDE CARE AND REPORT OFF TO ONCOMING RN.
--- NOTE | 2021-04-07 17:10 | NUR ---
SHIFT SUMMARY NO ACUTE CHANGES T/O SHIFT, COOPERATIVE c CARE, A&O TO SELF AND BIRTHDAY ONLY. DENIES ANY DISTRESS T/O SHIFT. INCONTINENT OF BOTH URINE AND STOOL. DRESSINGS CHANGED PREVIOUS SHIFT, REMAIN C/D/I. BP ELEVATED THIS AM, PRESCRIBED MED PROVIDED, BP NOW STABLE. POSSIBLE DC BACK TO [facility] TOMORROW. PT LAYING IN BED, CALL LIGHT WITHIN REACH. PT DOES NOT CALL OR TRY TO GET OUT OF BED. HOURLY ROUNDING COMPLETED TO ASSESS FOR PT NEEDS. POOR ORAL INTAKE TODAY EVEN WITH STRONG ENCOURAGEMENT.
--- NOTE | 2021-04-07 19:05 | NUR ---
ASSUMED CARE RECEIVED REPORT FROM FELTON SAEZ. PT RESTING QUIETLY, IN NO ACUTE DISTRESS. CALL LIGHT, POSSESSIONS IN REACH, BED IN LOW POSITION.
[2021-04-08 05:13] LABS: Hematocrit 32.4 % (33.0-51.0); Hemoglobin 10.7 g/dL (11.5-16.0); Mean Corpuscular HGB 28.7 pg (26.0-34.0); Mean Corpuscular Volume 87 fL (80-100); Mean Platelet Volume 9.3 fL (9.1-12.4); Platelet Count 419 K/mm3 (150-400); RDW Coefficient Variation 12.1 % (11.7-14.2); RDW Standard Deviation 38.5 fL (35.1-46.3); Red Blood Cell Count 3.73 M/mm3 (3.80-5.20); White Blood Cell Count 9.11 K/mm3 (4.00-11.30)
[2021-04-08 05:43] LABS: Anion Gap 6 mmol/L (6-16); Blood Urea Nitrogen 17 mg/dL (8-24); Bun/Creatinine Ratio 21.1 (12.0-20.0); CO2, Blood 24 mmol/L (21-32); Chloride, Blood 108 mmol/L (98-108); Creatinine, Blood 0.81 mg/dL (0.40-1.00); Glomerular Filtration Rate >60 (60-); Glucose, Blood 165 mg/dL (70-99); Potassium, Blood 3.9 mmol/L (3.5-5.5); Sodium, Blood 138 mmol/L (136-145)
--- NOTE | 2021-04-08 06:55 | NUR ---
DRY KILN OPERATOR HELPER SUMMARY PT RESTING, IN NO ACUTE DISTRESS. VS REVIEWED,WNL; SBP >160 X1, STABLE AT THIS TIME; OTHER VS WNL. NO ACUTE CHANGES IN CONDITION NOTED OVERNIGHT. SLEPT T/O WITH USE OF CPAP. REPOSITIONED, SKIN KEPT C/D/I. DENIES PAIN, NEEDS AT THIS TIME. CALL LIGHT, POSSESSIONS IN REACH, BED IN LOW POSITION WITH ALARMS ON. REPORT GIVEN TO FELTON SAEZ.
--- NOTE | 2021-04-08 13:31 | NUR ---
Case Conference Note Spoke with Bedside RN Jenae and discussed case. Jenae entering room with plans to provide personal care to Pt. Called and spoke with Pt's daughter Joanne. Provided update and offered therapeutic listening. Joanne expresses concerns regarding long chain dyeing machine operator placement including not knowing level of care Pt may need. She expresses frustrations regarding visiting policy at [facility]. Continued therapeutic listening and validated concerns. Gentle education given regarding the potential of continued decline in Pt's mentation and function as disease progresses. Answered questions and continued therapeutic listening. Joanne expresses appreciation of call. Palliative Care will F/U with Pt at a later time.
--- NOTE | 2021-04-08 16:51 | NUR ---
SHIFT SUMMARY NO ACUTE CHANGES T/O SHIFT, A&O TO SELF, CALM AND COOPERATIVE c CARE. PT MORE ALERT AND AWAKE T/O SHIFT, BETTER ORAL INTAKE DURING MEAL TIMES, ABLE TO FOLLOW DIRECTION FOR A 1 PERSON ATTEND CHANGE. PT DENIES ANY DISTRESS OR PAIN. DRESSING CHANGES COMPLETED PRIOR SHIFT, CURRENTLY C/D/I. CREAMS APPLIED TO BOTTOM WITH EACH ATTENDS CHANGE, PT REPORTS SORENESS WHEN WIPING. PT WORKED WITH PT/OT TODAY. ST MMSE WAS COMPLETED. PT IS CURRENTLY RESTING IN BED WATCHING TV, CALL LIGHT WITHIN REACH. PT DOES NOT TYPICALLY CALL, INTENTIONAL HOURLY ROUNDING COMPLETED.
--- NOTE | 2021-04-09 05:59 | NUR ---
SHIFT SUMMARY: AOX1, DEMENTIA. BEDBOUND. LUNG SOUNDS DIMINISHED, NO COUGH OR CONGESTION. INCONTIENT, REDNESS AND EXCORIATION TO BOTTOM AND IN GROIN. BARRIER CREAM APPLIED. REFUSED CPAP AND CONTINUOUS PULSE OX LAST NIGHT. MEDS GIVEN IN APPLESAUCE SHE HAD TROUBLE EVEN SWALLOWING THEM WHOLE IN APPLESAUCE THEY MUST BE CRUSHED. BS IN THE 200'S. HTN THAT LEVELED OUT ON RECHECK. WOUNDS TO BLE SHALLOW WITH PINK EDGES AND SOME SLOUGH IN THE WOUND BEDS, EDEMA BLE UP TO THIGHS. WOUND CARE WAS PROVIDED. NO OTHER CHANGES TO NOTE. CALL LIGHT IN REACH.
--- NOTE | 2021-04-09 08:27 | NUR ---
Noted elevated blood pressure this morning. Rechecked to verify. Scheduled medications given, plan to recheck in 45 minutes. Pt is sitting up to eat breakfast with ACCREDITED PHARMACY TECHNICIAN supervision.
--- NOTE | 2021-04-09 09:28 | NUR ---
Noted blood pressure remains elevated, even after am scheduled medications were given. Will call Dr. Diaz to address concerns. Pt is alert, oriented to person only, and sitting up in bed, no signs of discomfort/distress and watching TV.
--- NOTE | 2021-04-09 10:03 | NUR ---
Lisette Anne from [facility] called, asked if pt had been NPO. Apparently pt was supposed to be NPO after midnight, but there are no orders as such. PT made NPO at this time. Also spoke with Dr. Diaz regarding pt's elevated blood pressure, and new orders recieved.
--- NOTE | 2021-04-09 11:30 | NUR ---
Pt resting in bed upon arrival. Pt is pleasantly confused. Bedside RN Liset at bedside. Pt denies pain at this time. Pt appears comfortable with no S/S of distress at this time. Discussed case with Bedside FELTON Hutchins and Dr Chakraborty. Reported conversation with Pt's daughter Joanne and family's questions regarding risk vs benefits of preocdure including risk of decreased mentation due to her dementia and quality of life with these questions deferred for Dr Chakraborty to discuss. Palliative Care will remain available.
[2021-04-09 12:24] LABS: SARS-Cov-2 (COVID-19) PCR, MMC NEGATIVE (NEGATIVE)
--- NOTE | 2021-04-09 13:31 | NUR ---
PATIENT REFUSED TO WORK WITH PHYSICAL THERAPY THIS AFTERNOON. DR. ADAME STOPPED BY TO SEE THE PATIENT. HE LOOKED AT THE ULCERS ON HER BLE. DR. ADAME SAID HE WILL CALL THE PATIENT'S DAUGHTER AND COME BACK TO SEE THE PATIENT LATER.
--- NOTE | 2021-04-09 14:37 | NUR ---
wound care completed: Old dressing removed and ulcers on left and right lower legs cleansed with skintegrity, patted dry with sterile gauze. One ulcer is on the left calf, and two are on the medial/anterior side of the left lower leg. Ulcers noted to be pink around the edges, with scant amount of serous drainage. They are sensitive to touch. Distal pedal pulses are easily palpable and toes are pink, warm and dry with capillary refill 2-3 seconds. Third toe on the right foot does have a tiny black spot. Xerform petrolatum dressing applied, covered with non-adherent dressing and secured with kerlix. Pt tolerated it well. Legs elevated on pillows to keep heels floated.
--- NOTE | 2021-04-09 17:27 | NUR ---
DAUGHTER Cata here at the bedside. STates that Joanne talked with Dr. Chakraborty and the plan is to NOT have the revascularization as discussed this morning. NPO status dc/d.
--- NOTE | 2021-04-09 17:28 | NUR ---
Called Lisette Troy, and confirmed that procedure will not be done today.
--- NOTE | 2021-04-09 18:09 | NUR ---
Withdrawn, slow to answer questions, and unexpressive for the most part. Confused, not oriented to anything except her name and birthday, and to her family members either by phone or present in room. Cooperative, but also sleepy today in between care.
--- NOTE | 2021-04-09 20:58 | NUR ---
ASSUMPTION OF CARE. AOX1, WAS SLEEPING BUT AWAKENED WITH VERBAL STIMULI. DENIES PAIN OR DISCOMFORT. DENIES SOB, CP, HEADACHE, N/T, BLURRED VISION. JUST TIRED. SWELLING IN LEGS HAVE DECREASED THERE ARE NOW WRINKLES IN SKIN. DRESSINGS TO BLE CHANGED, NO CHANGES TO WOUNDS. MEDS GIVEN IN APPLESAUCE. BLOOD SUGAR 170'S. GOT HER POSITIONED FOR BED, CPAP AND PULSE OX ON.
--- NOTE | 2021-04-10 05:51 | NUR ---
SHIFT SUMMARY: FCO HAS BEEN MORE OUT OF IT TONIGHT, MOSTLY FATIQUED AND TIRED. WENT TO BED EARLY EVEN BEFORE PM MEDS. DENIED ANY PAIN OR HEADACHE, BLURRED VISION, SOB OR CHEST PAIN. DID WEAR HER CPAP LAST NIGHT WITH CONTINUOUS PULSE OX. MEDS CRUSHED IN APPLESAUCE. BP REMAINED IN THE 140'S. REST OF VITALS WERE STABLE. DRESSINGS CHANGED TO BLE. THEY ARE HEALING WELL. NO OTHER CHANGES TO REPORT. CALL LIGHT IN REACH.
--- NOTE | 2021-04-10 09:51 | NUR ---
Spoke with Bedside RN Alisia and discussed case prior to Pt visit. Pt resting in bed upon arrival. Pt slow to respond with minimal verbal response. Pt appears to be experiencing mild discomfort as evidenced by slight labored breathing with slight grimace. FLACC score 2/10. Pt reports feeling tired. Ended visit to allow Pt to rest. Plan: F/U with Pt when family is visiting for supportive visit. Palliative Care will remain available.
--- NOTE | 2021-04-10 17:00 | NUR ---
SHIFT SUMMARY PATIENT MEDICATED X1 FOR PAIN/LOW GRADE FEVER. DENIES NAUSEA AND SHORTNESS OF BREATH. POOR APPETITE AND FLUID INTAKE. FLUIDS ENCOURAGED. VISITOR THIS AFTERNOON. PATIENT WORKED WITH PT. PATIENT ABLE TO SIT ON SIDE OF BED WITH ASSIST. UNABLE TO STAND AT THIS TIME. INTERVENTIONAL RADIOLOGY PA CONSULTED WITH PATIENT, PLANS TO FOLLOW UP OUTPATIENT. PATIENT NAPPING MOST OF SHIFT. PATIENT RESPONDS TO VERBAL STIMULI AND PHYSICAL TOUCH.
--- NOTE | 2021-04-11 06:36 | NUR ---
SHIFT SUMMARY: DECREASE IN INTERACTON WIHT STAFF, WHEN ASKED QUESTIONS TENDS TO STUDDER AND NOT ABLE TO GET OUT WHAT SHE IS TRYING TO SAY. MOST OF THE TIME UNABLE TO FOCUS OR FOLLOW ALONG IN CONVERSATION. VERY WEAK. DECREASE IN APPETITE. DID NOT EAT MUCH OF DINNER. LUNGS DIMINISHED. TOOK MEDS BUT DID NOT WANT TO WAKE FOR THIS AM. VSS/AFEBRILE. CALL LIGHT IN REACH
[2021-04-11 09:16] LABS: BASOPHILS ABSOLUTE AUTO 0.09 K/mm3 (0.00-0.23); BASOPHILS PERCENT AUTO 1 % (0-2); EOSINOPHILS ABSOLUTE AUTO 0.46 K/mm3 (0.00-0.68); EOSINOPHILS PERCENT AUTO 5 % (0-6); Hematocrit 36.6 % (33.0-51.0); Hemoglobin 12.1 g/dL (11.5-16.0); IMMATURE GRAN ABSOLUTE AUTO 0.09 K/mm3 (0.00-0.10); IMMATURE GRAN PERCENT AUTO 1 % (0-1); LYMPHOCYTES ABSOLUTE AUTO 1.24 K/mm3 (0.84-5.20); LYMPHOCYTES PERCENT AUTO 14 % (21-46); MONOCYTES ABSOLUTE AUTO 0.58 K/mm3 (0.16-1.47); MONOCYTES PERCENT AUTO 6 % (4-13); Mean Corpuscular HGB 28.1 pg (26.0-34.0); Mean Corpuscular HGB Conc 33.1 g/dL (31.5-36.5); Mean Corpuscular Volume 85 fL (80-100); Mean Platelet Volume 9.2 fL (9.1-12.4); NEUTROPHILS ABSOLUTE AUTO 6.59 K/mm3 (1.96-9.15); NEUTROPHILS PERCENT AUTO 73 % (41-73); Platelet Count 534 K/mm3 (150-400); RDW Standard Deviation 37.1 fL (35.1-46.3); Red Blood Cell Count 4.31 M/mm3 (3.80-5.20); White Blood Cell Count 9.05 K/mm3 (4.00-11.30)
[2021-04-11 09:43] LABS: Alanine Aminotransfer (ALT/SGP 49 U/L (12-78); Albumin, Blood 2.6 g/dL (3.4-5.0); Albumin/Globulin Ratio 0.6 (0.8-1.8); Alk Phos 86 U/L (50-136); Anion Gap 8 mmol/L (6-16); Aspartate Aminotrans (AST/SGOT 25 U/L (12-37); Bilirubin, Total 0.3 mg/dL (0.1-1.0); Blood Urea Nitrogen 12 mg/dL (8-24); Bun/Creatinine Ratio 14.5 (12.0-20.0); CO2, Blood 23 mmol/L (21-32); Calcium, Blood 10.5 mg/dL (8.5-10.1); Chloride, Blood 106 mmol/L (98-108); Creatinine, Blood 0.83 mg/dL (0.40-1.00); Glomerular Filtration Rate >60 (60-); Glucose, Blood 163 mg/dL (70-99); Potassium, Blood 4.2 mmol/L (3.5-5.5); Sodium, Blood 137 mmol/L (136-145); Total Protein, Blood 6.6 g/dL (6.4-8.2)
--- NOTE | 2021-04-11 13:23 | NUR ---
Case Conference Note Spoke with Bedside RN Alisia this AM and discussed case. Pt's PO intake is poor and appears to be physically declining. Pt requires assistance with transfers, unable to ambulate at this time, requires assistance with bathing, dressing, and is incontinent of bowel and bladder. Pt also requires assistance with feeding. Spoke with Dr Diaz and discussed case. Dr Diaz agrees that family may benefit from discussion regarding goals of care. Telephone conference with Pt's daughters Cata Rubio, Kari, and Fredrick. Provided update and answered questions. Engaged in therapeutic conversation regarding goals of care including current plan of care, hospice, comfort care, and code status. Discussed current code status and educated on life sustaining treatements. Family feels that Pt would not want to be rescusitated in her current condition. Family request for Pt's code status to be changed to DNR. Discussed hospice as an option and educated on hospice philosophy. Answered questions regarding hospice and discussed hospice agencies to choose from. Family would like assistance with placement and hospice services. Family would like to maintane current plan of care until D/C from the hospital with hospice. Continued therapeutic listening. Family expresses appreciation of call and reports no other concerns at this time. Changed Pt's code status to DNR and placed hospice referral per V/O from Dr Diaz. PPS 30% ADLs 6/6 FAST 7C Palliative Care will remain available for supportive visits for Pt and family.
--- NOTE | 2021-04-11 16:29 | NUR ---
SHIFT SUMMARY PATIENT DENIES PAIN, NAUSEA, SHORTNESS OF BREATH. APPETITE SLIGHTLY IMPROVED TODAY. PATIENT NAPPING ON AND OFF DURING SHIFT. PT WORKED WITH PATIENT, STILL UNABLE TO STAND AND SIT ON SIDE OF BED WITHOUT ASSISTANCE. PALLIATIVE CARE CONSULTED WITH FAMILY. CODE STATUS CHANGED TO DNR. FAMILY DISCUSSING POSSIBLE HOSPICE DISCHARGE. NO CHANGE TO PLAN OF CARE AT THIS TIME. PLEASANT AND COOPERATIVE WITH CARE.
--- NOTE | 2021-04-12 04:50 | NUR ---
SHIFT SUMMARY: REGRESSED SOME TONIGHT. VERY LITTLE CONVERSATION, MOST OF TIME DID NOT RESPOND TO QUESTIONS. FOLLOWED DIRECTION. WITHDRAWN, FLAT AFFECT. WOUND CARE COMPLETED, REDNESS IN PERIAREA IMPROVING. SWELLING STILL PRESENT ON LABIAS THAT IS PAINFUL. BARRIER CREAM USED. REDNESS COCCYX, REPOSITION Q2. MILD EDEMA. LS DIMINISHED. NO COUGH. SATS STABLE ON RA. STILL WAITING PLACEMENT. BED ALARM ON, CALL LIGHT IN REACH.
[2021-04-12 05:30] LABS: BASOPHILS ABSOLUTE AUTO 0.07 K/mm3 (0.00-0.23); BASOPHILS PERCENT AUTO 1 % (0-2); EOSINOPHILS PERCENT AUTO 7 % (0-6); Hematocrit 34.3 % (33.0-51.0); Hemoglobin 11.4 g/dL (11.5-16.0); IMMATURE GRAN PERCENT AUTO 1 % (0-1); LYMPHOCYTES ABSOLUTE AUTO 1.35 K/mm3 (0.84-5.20); LYMPHOCYTES PERCENT AUTO 15 % (21-46); MONOCYTES ABSOLUTE AUTO 0.75 K/mm3 (0.16-1.47); MONOCYTES PERCENT AUTO 8 % (4-13); Mean Corpuscular HGB 27.9 pg (26.0-34.0); Mean Corpuscular HGB Conc 33.2 g/dL (31.5-36.5); Mean Corpuscular Volume 84 fL (80-100); Mean Platelet Volume 9.1 fL (9.1-12.4); NEUTROPHILS ABSOLUTE AUTO 6.21 K/mm3 (1.96-9.15); NEUTROPHILS PERCENT AUTO 68 % (41-73); Platelet Count 512 K/mm3 (150-400); RDW Coefficient Variation 12.1 % (11.7-14.2); RDW Standard Deviation 36.5 fL (35.1-46.3); Red Blood Cell Count 4.08 M/mm3 (3.80-5.20); White Blood Cell Count 9.08 K/mm3 (4.00-11.30)
[2021-04-12 06:37] LABS: Albumin, Blood 2.5 g/dL (3.4-5.0); Albumin/Globulin Ratio 0.7 (0.8-1.8); Bilirubin, Total 0.2 mg/dL (0.1-1.0); Bun/Creatinine Ratio 14.5 (12.0-20.0); Calcium, Blood 10.1 mg/dL (8.5-10.1); Creatinine, Blood 0.97 mg/dL (0.40-1.00); Globulin, Blood 3.4 g/dL (2.2-4.0); Potassium, Blood 3.9 mmol/L (3.5-5.5); Thyroid Stimulating Hormone 3.05 uIU/mL (0.360-4.800); Total Protein, Blood 5.9 g/dL (6.4-8.2)
--- NOTE | 2021-04-12 16:53 | NUR ---
PT SLEPT MOST OF DAY, JUST AWAKENED THIS AFT. BARELY ANSWERS. SHE DID HAVE ELEVATED BP AT [facility]. PT STATES COULD SWALLOW MED. CALLED DR SÁNCHEZ, OKAYED MORNING AM MEDS APPROP. PT DENIES PAIN. VERY FEW ANSWERS OTHER THAN THAT. PT IS FTTHRIVE. GOT HER TO TAKE MAGIC CUP AND SOME GELETINE FOR NOURISHMENT. PLACED ORDER TO GET FOOD AT [facility] AND MAGIC CUP AND GELETINE Q MEAL. UPDATED NO NEW CONCERNS AT THIS TIME. BED IN LOW POSITION, CALL LITE IN REACH. BED ALARM ON FOR SAFETY
--- NOTE | 2021-04-12 19:08 | NUR ---
PT TALKING A LITTLE. SINCE DAUGHTER WAS HERE. WAS ABLE TO EAT FULL MAGIC CUP. MOST OF [employer] MEAT. COUPLE BITES POTATOES. SOME DRINK. IN GENERAL SLIGHT IMPROVEMENT.
--- NOTE | 2021-04-12 19:20 | NUR ---
ASSUMED CARE. FCO IS MORE ALERT SITTING UP WATCHING TV. ANSWERS QUESTIONS. STILL HAS TROUBLE FINDING WORDS OCCATIONALLY. SPEAKING IN FULL SENTENCES. ATE MORE TODAY. DENIES ANY PAIN. TRACE EDEMA TO BLE. LUNGS DIMINISHED IN BASES. CONTINUOUS PULSE OX SHOWS 94%. DRESSINGS CHANGED TO BLE, WOUNDS APPEAR MORE WET THERE IS WHITE AROUND THE EDGES. ATTENDS DRY. WILL CONTINUE TO MONITOR AND PROVIDE TREATMENT.
--- NOTE | 2021-04-13 04:55 | NUR ---
SHIFT SUMMARY: MORE ALERT AND TALKATIVE AT START OF SHIFT. SAYING FULL SENTENCES WITH OCCATIONAL DIFFICULTY GETTING WORDS OUT. MORE INTERACTIVE. ATE MORE AT DINNER. SLEPT WELL. REPOSITIONED Q2. DRESSINGS CHANGED BLE, WOUND EDGES WHITE, WOUND MOIST. SLOUGH IN WOUND BEDS X3. STILL TENDING TO CROSS LEGS. ENCOURAGED TO KEEP PILLOW BETWEEN. VSS/AFEBRILE. NO OTHER CHANGES TO NOTE. CALL LIGHT IN REACH.
--- NOTE | 2021-04-13 18:28 | NUR ---
PT SLEEPING MOST OF DAY. NO C/O PAIN. DAUGHTER IN ROOM TO VISIT TODAY. PT PULLED IV. DR SÁNCHEZ OKAYED LEAVE OUT. NOT EATING MUCH EXCEPT GELATIMNE AND MAJIC CUPS. NO NEW CONCERNS NTOED. BED IN LOW POSITION, CALL LITE IN REACH, BED ALARM ON FOR SAFETY
--- NOTE | 2021-04-13 21:59 | NUR ---
PT SOMNOLENT, WILL OPEN EYES TO VOICE BUT DOES NOT RESPOND TO QUESTIONS. LEAVES HER EYES OPEN FOR 1 MINUTE AT THE MOST. UNSAFE TO ATTEMPT TO SWALLOW MEDICATIONS.
--- NOTE | 2021-04-14 06:33 | NUR ---
SHIFT SUMMARY: FCO OPENS HER EYES TO VERBAL STIMULATION. SHE HAS NOT RESPONDED VERBALLY, BUT DOES MOVE HERSELF MINIMALLY IN BED. ATTENDS IN PLACE, [place] FOR FOLDS/CREVICES. SHE HAS BEEN TURNED AND REPOSITIONED FREQUENTLY. SHE REFUSED ORAL CARE THIS AM. SHE IS LYING IN BED WITH THE CALL LIGHT IN REACH. WILL REPORT TO DAY SHIFT RN.
--- NOTE | 2021-04-14 09:52 | NUR ---
PT AWAKENS TO TOUCH OR TALK. OPENS EYES. OCC WILL SAY YES NO TO QUEST. DENIES PAIN. CLOSES EYES QUICKLY . MOSTLY ASLEEP MOST OF TIME SINCE HERE TODAY. SOME LITTLE MAGIC CUP AND GELETINE FOR INTAKE. FEW SIPS WATER. REFUSING MORE. WE ARE ENCOURAGING MUCH WILL TAKE. DID HAVE BM YEST. VERY LITTLE URINE OUTPUT. H/R REG, NO MURMER NOTED. NO TELE. LUNGS CLEAR TODAY, ON R.A. RESP EASY, UNLABORED. AGAIN , MOSTLY SLEEPING. BT X4 LAST BM YEST. VOIDS PER ATTENDS, INCONT. BED IN LOW POSITION, CALL LITE IN REACH, BED ALARM ON FOR SAFETY
--- NOTE | 2021-04-14 17:11 | NUR ---
PT CONTINUES TO BE BARELY RESPONDANT. DOES OPEN EYES DOES SOMETIMES RESPOND YES OR NO. NOT MUCH ELSE. SOME LIGHT EATING OF GELITINE OR MAGIC CUP. CONTINUE TO TURN Q2, KEEP CLEAN AND DRY. BED IN LOW POSITION, CALL LITE IN REACH, BED ALARM ON FOR SAFETY
--- NOTE | 2021-04-14 18:53 | NUR ---
PT REFUSED ATTEMPTS AT FEEDING SEVERAL TIMES. LEFT FOOD IN ROOM TO ATTEMPT AGAIN. PT VERBALLY SAID NO AND TURNED HEAD.
--- NOTE | 2021-04-15 07:22 | NUR ---
SHIFT SUMMARY: PATIENT IS ALERT AND ORIENTED TO FIRST NAME ONLY. POOR PO INTAKE. ZERO PERCENT OF DINNER, 1/2 OF A MAGIC CUP WAAS GIVEN WITH HS MEDS. PILLS ARE CRUSHED IN PUDDING OR APPLE SAUCE. INC OF URINE. MAINTAINS SATS ABOVE 90% ON RA. BED ALARM IS ON FOR SAFETY.
[2021-04-15] MEDS ORDERED: AMLO5 PO (08:19)
--- NOTE | 2021-04-15 10:17 | NUR ---
THIS RN CALLED AND GAVE REPORT TO HILARIO YA AT 1006 AM ON 04/15/21
== END 2021-04-15 11:15 | disposition hospice, inpatient (51) | DRG 871 ==
LOC: ER 16:01 → MEDS 21:23 → ENPENDDIS 04-15 09:32 → MEDS 04-15 11:15
PROVIDERS: Internal Medicine; Physician Assistant; Radiology Diagnostic Radiology; ADMIT Internal Medicine
PROC: 8E0ZXY6 Isolation (ICD-10-PCS; principal; 2021-04-02)
PROC: 5A09357 Assistance with Respiratory Ventilation, Less than 24 Consecutive Hours, Continuous Positive Airway Pressure (ICD-10-PCS; 2021-04-02)
DX: A41.81 Sepsis due to Enterococcus (principal); G92 Toxic encephalopathy; L03.116 Cellulitis of left lower limb; N39.0 Urinary tract infection, site not specified; I67.89 Other cerebrovascular disease; Z66 Do not resuscitate; Z20.822 Contact with and (suspected) exposure to COVID-19; E11.621 Type 2 diabetes mellitus with foot ulcer; L97.529 Non-pressure chronic ulcer of other part of left foot with unspecified severity; R82.90 Unspecified abnormal findings in urine; E11.51 Type 2 diabetes mellitus with diabetic peripheral angiopathy without gangrene; F03.90 Unspecified dementia, unspecified severity, without behavioral disturbance, psychotic disturbance, mood disturbance, and anxiety; E11.22 Type 2 diabetes mellitus with diabetic chronic kidney disease; G47.33 Obstructive sleep apnea (adult) (pediatric); N18.30 Chronic kidney disease, stage 3 unspecified; D63.1 Anemia in chronic kidney disease; J44.9 Chronic obstructive pulmonary disease, unspecified; I50.9 Heart failure, unspecified; Z98.890 Other specified postprocedural states; Z90.49 Acquired absence of other specified parts of digestive tract; Z88.1 Allergy status to other antibiotic agents; Z88.8 Allergy status to other drugs, medicaments and biological substances; Z90.710 Acquired absence of both cervix and uterus; Z87.891 Personal history of nicotine dependence; Z79.899 Other long term (current) drug therapy; Z79.02 Long term (current) use of antithrombotics/antiplatelets
CPT/HCPCS: 36415; 51702; 70450; 71045; 73502; 80048; 80053; 81001; 82607; 82746; 82947; 83605; 83880; 84443; 84484; 85025; 85027; 87040; 87077; 87086; 87106; 87186; 92523; 92526; 92610; 93005; 93010; 94660; 94760; 94762; 96365-59; 96375-59; 97110; 97162; 97166; 97530; 97535; 99285-25; A9270; J0295; J0692; J0696; J1644; J7030; J7040; J7120; U0004

== ENCOUNTER → 2021-07-23 | Outpatient (CLI) | payer OTHER ==
[~2021-07-23] MED LIST changes: +ALBU90OI INH; +AMLO5 PO; +Amitriptyline H10 MG PO; +CLOP75 PO; +EUTHYROX125 MCG PO; +FAMO20 PO; +FISH OIL 1,2001 EAC7 PO; +GLUC500 PO; +SULFAMETHOXAZO1 EAC1 PO
[2021-07-23 16:30] LABS: BASOPHILS ABSOLUTE AUTO 0.03 K/mm3 (0.00-0.23); BASOPHILS PERCENT AUTO 0 % (0-2); EOSINOPHILS ABSOLUTE AUTO 0.02 K/mm3 (0.00-0.68); EOSINOPHILS PERCENT AUTO 0 % (0-6); Hematocrit 42.3 % (33.0-51.0); Hemoglobin 14.3 g/dL (11.5-16.0); IMMATURE GRAN ABSOLUTE AUTO 0.06 K/mm3 (0.00-0.10); IMMATURE GRAN PERCENT AUTO 1 % (0-1); LYMPHOCYTES ABSOLUTE AUTO 1.13 K/mm3 (0.84-5.20); LYMPHOCYTES PERCENT AUTO 15 % (21-46); MONOCYTES ABSOLUTE AUTO 0.63 K/mm3 (0.16-1.47); MONOCYTES PERCENT AUTO 8 % (4-13); Mean Corpuscular HGB 27.9 pg (26.0-34.0); Mean Corpuscular HGB Conc 33.8 g/dL (31.5-36.5); Mean Corpuscular Volume 83 fL (80-100); Mean Platelet Volume 11.4 fL (9.1-12.4); NEUTROPHILS ABSOLUTE AUTO 5.74 K/mm3 (1.96-9.15); NEUTROPHILS PERCENT AUTO 75 % (41-73); Platelet Count 195 K/mm3 (150-400); RDW Coefficient Variation 14.6 % (11.7-14.2); Red Blood Cell Count 5.12 M/mm3 (3.80-5.20); White Blood Cell Count 7.61 K/mm3 (4.00-11.30)
== END | disposition home or self-care (01) ==
LOC: LAB 16:22 → LAB SHORT 16:22
PROVIDERS: Internal Medicine
DX: M62.81 Muscle weakness (generalized) (principal); I50.9 Heart failure, unspecified
CPT/HCPCS: 85025

== ENCOUNTER → 2021-07-24 | Outpatient (CLI) | payer OTHER ==
[2021-07-24 09:51] LABS: Bun/Creatinine Ratio 32.1 (12.0-20.0); Calcium, Blood 9.9 mg/dL (8.5-10.1); Creatinine, Blood 1.09 mg/dL (0.40-1.00); Potassium, Blood 3.6 mmol/L (3.5-5.5)
== END | disposition home or self-care (01) ==
LOC: LAB RH 08:40 → LAB 08:40 → EDSTATUS 13:54
PROVIDERS: Internal Medicine
DX: E11.9 Type 2 diabetes mellitus without complications (principal); M62.81 Muscle weakness (generalized)
CPT/HCPCS: 80048

== ENCOUNTER → 2021-07-30 | Outpatient (CLI) | payer OTHER ==
[2021-07-30 14:14] LABS: Source, Urine Catheter
[2021-07-30 15:03] LABS: Appearance, Urine Hazy (Clear); Bilirubin, Urine Neg (Neg); Blood, Urine 3+ (Neg); Color, Urine Yellow (P-Yellow); Glucose Qualitative, Urine Neg (Neg); Ketones, Urine Neg (Neg); Leukocyte Esterase, Urine 3+ (Neg); Nitrite, Urine Pos (Neg); Protein, Urine 2+ (Neg); Specific Gravity, Urine 1.015 (1.003-1.022); Urobilinogen, Urine 1+ (Normal)
[2021-07-30 16:08] LABS: Red Blood Cells, Urine 25-50 /hpf (0-2); White Blood Cells, Urine TNTC /hpf (0-5)
[2021-07-30 16:09] LABS: Amorphous Light (0-Heavy); Bacteria Many /hpf; Renal Epithelial Few /hpf (0-Rare); Squamous Epithelial Cells Mod /hpf (Few)
[2021-07-30 16:11] LABS: Mucus Light (0-Heavy)
== END | disposition home or self-care (01) ==
LOC: EDSTATUS 13:55 → LAB 14:13 → LAB RH 14:13
PROVIDERS: Internal Medicine
DX: E11.9 Type 2 diabetes mellitus without complications (principal)
CPT/HCPCS: 81001; 87077; 87086; 87186

== ENCOUNTER → 2021-08-08 | Outpatient (CLI) | payer OTHER ==
[2021-08-08 19:54] LABS: Appearance, Urine Clear (Clear); Bilirubin, Urine Neg (Neg); Blood, Urine Neg (Neg); Color, Urine Yellow (P-Yellow); Glucose Qualitative, Urine Neg (Neg); Ketones, Urine Neg (Neg); Leukocyte Esterase, Urine 2+ (Neg); Nitrite, Urine Neg (Neg); Protein, Urine 1+ (Neg); Specific Gravity, Urine 1.015 (1.003-1.022); Urobilinogen, Urine NORM (Normal)
[2021-08-08 20:03] LABS: Red Blood Cells, Urine 0-2 /hpf (0-2); Squamous Epithelial Cells Few /hpf (Few)
[2021-08-08 20:04] LABS: Bacteria Few /hpf; Yeast/Fungi Urine Few /hpf
== END | disposition home or self-care (01) ==
LOC: EDSTATUS 13:56 → LAB RH 18:26
PROVIDERS: Nurse Practitioner Family
DX: N39.0 Urinary tract infection, site not specified (principal)
CPT/HCPCS: 81001; 87086

== ENCOUNTER → 2021-10-08 | Outpatient (CLI) | payer OTHER ==
[~2021-10-08] MED LIST changes: +AIRDUO RESPICL1 EAC4 INH; +CALCIUM 500 MG1 EAC2 PO; +ERTAPENEM1 G6 IV; +Norco 5-325 Ta1 EACH PO; +ONDA4 PO; +VISBIOME 112.51 EACH PO; +VITAMIN D5000 UNIT PO
[2021-10-08 14:16] LABS: Source, Urine Catheter
[2021-10-08 15:34] LABS: Appearance, Urine Clear (Clear); Bilirubin, Urine Neg (Neg); Blood, Urine 4+ (Neg); Color, Urine Yellow (P-Yellow); Glucose Qualitative, Urine Neg (Neg); Ketones, Urine Neg (Neg); Leukocyte Esterase, Urine 3+ (Neg); Nitrite, Urine Neg (Neg); Protein, Urine 3+ (Neg); Urobilinogen, Urine NORM (Normal)
[2021-10-08 16:02] LABS: Bacteria Mod /hpf; Red Blood Cells, Urine 25-50 /hpf (0-2); Squamous Epithelial Cells Not Seen /hpf (Few); White Blood Cells, Urine 50-100 /hpf (0-5)
== END | disposition home or self-care (01) ==
LOC: EDSTATUS 09:54 → LAB RH 14:15
PROVIDERS: Nurse Practitioner Family
DX: N39.0 Urinary tract infection, site not specified (principal)
CPT/HCPCS: 81001; 87086

== ENCOUNTER → 2021-10-08 | Outpatient (CLI) | payer OTHER ==
[2021-10-08 10:47] LABS: Hematocrit 41.1 % (33.0-51.0); Hemoglobin 13.5 g/dL (11.5-16.0); Mean Corpuscular HGB 29.3 pg (26.0-34.0); Mean Corpuscular HGB Conc 32.8 g/dL (31.5-36.5); Mean Corpuscular Volume 89 fL (80-100); Mean Platelet Volume 9.2 fL (9.1-12.4); Platelet Count 293 K/mm3 (150-400); RDW Coefficient Variation 13.8 % (11.7-14.2); RDW Standard Deviation 45.1 fL (35.1-46.3); Red Blood Cell Count 4.61 M/mm3 (3.80-5.20); White Blood Cell Count 14.62 K/mm3 (4.00-11.30)
[2021-10-08 11:04] LABS: Bun/Creatinine Ratio 41.3 (12.0-20.0); Calcium, Blood 10.9 mg/dL (8.5-10.1); Creatinine, Blood 0.99 mg/dL (0.40-1.00); Potassium, Blood 4.3 mmol/L (3.5-5.5)
== END | disposition home or self-care (01) ==
LOC: EDSTATUS 09:53 → LAB RH 10:00
PROVIDERS: Internal Medicine
DX: U07.1 COVID-19 (principal); I10 Essential (primary) hypertension
CPT/HCPCS: 80048; 85027

== ENCOUNTER → 2021-10-13 | Outpatient (CLI) | payer OTHER ==
[2021-10-13 13:31] LABS: BASOPHILS ABSOLUTE AUTO 0.04 K/mm3 (0.00-0.23); BASOPHILS PERCENT AUTO 1 % (0-2); EOSINOPHILS ABSOLUTE AUTO 0.19 K/mm3 (0.00-0.68); EOSINOPHILS PERCENT AUTO 3 % (0-6); Hematocrit 32.3 % (33.0-51.0); Hemoglobin 10.8 g/dL (11.5-16.0); IMMATURE GRAN ABSOLUTE AUTO 0.13 K/mm3 (0.00-0.10); IMMATURE GRAN PERCENT AUTO 2 % (0-1); LYMPHOCYTES ABSOLUTE AUTO 0.83 K/mm3 (0.84-5.20); LYMPHOCYTES PERCENT AUTO 12 % (21-46); MONOCYTES ABSOLUTE AUTO 0.85 K/mm3 (0.16-1.47); MONOCYTES PERCENT AUTO 12 % (4-13); Mean Corpuscular HGB 29.3 pg (26.0-34.0); Mean Corpuscular HGB Conc 33.4 g/dL (31.5-36.5); Mean Corpuscular Volume 88 fL (80-100); Mean Platelet Volume 8.6 fL (9.1-12.4); NEUTROPHILS ABSOLUTE AUTO 5.07 K/mm3 (1.96-9.15); NEUTROPHILS PERCENT AUTO 71 % (41-73); Platelet Count 276 K/mm3 (150-400); RDW Coefficient Variation 13.3 % (11.7-14.2); RDW Standard Deviation 42.7 fL (35.1-46.3); Red Blood Cell Count 3.68 M/mm3 (3.80-5.20); White Blood Cell Count 7.11 K/mm3 (4.00-11.30)
== END | disposition home or self-care (01) ==
LOC: EDSTATUS 09:56 → LAB RH 12:50
PROVIDERS: Internal Medicine
DX: J44.9 Chronic obstructive pulmonary disease, unspecified (principal)
CPT/HCPCS: 85025

== ENCOUNTER → 2021-10-27 | Outpatient (CLI) | payer OTHER ==
[2021-10-27 15:00] LABS: Appearance, Urine Hazy (Clear); Bilirubin, Urine Neg (Neg); Blood, Urine 2+ (Neg); Color, Urine Yellow (P-Yellow); Glucose Qualitative, Urine Neg (Neg); Ketones, Urine Neg (Neg); Leukocyte Esterase, Urine 3+ (Neg); Nitrite, Urine Neg (Neg); Protein, Urine 2+ (Neg); Specific Gravity, Urine 1.015 (1.003-1.022); Urobilinogen, Urine NORM (Normal); pH, Urine 6.5 (5.0-8.0)
[2021-10-27 15:20] LABS: Hyaline Casts 0-2 /lpf (0-2)
[2021-10-27 15:21] LABS: White Blood Cells, Urine 25-50 /hpf (0-5)
[2021-10-27 15:22] LABS: Bacteria Many /hpf; Squamous Epithelial Cells Mod /hpf (Few)
== END | disposition home or self-care (01) ==
LOC: LAB RH 13:00 → EDSTATUS 14:36
PROVIDERS: Internal Medicine
DX: N95.0 Postmenopausal bleeding (principal)
CPT/HCPCS: 81001; 87086

== ENCOUNTER 2021-11-06 10:17 | Inpatient (IN) | payer OTHER ==
[~2021-11-06] VITALS: Ht 165.1 cm; Wt 84.0 kg
[~2021-11-06 10:17] MED LIST changes: -AIRDUO RESPICL1 EAC4 INH; -CALCIUM 500 MG1 EAC2 PO; -ERTAPENEM1 G6 IV; -Norco 5-325 Ta1 EACH PO; -ONDA4 PO; -VISBIOME 112.51 EACH PO; -VITAMIN D5000 UNIT PO
[2021-11-06] MEDS ORDERED: DOCU100 PO (10:57)
[2021-11-06 10:59] LABS: Source, Urine Catheter
[2021-11-06] MEDS ORDERED: ONDA4 PO (10:59)
[2021-11-06 11:13] LABS: BASOPHILS ABSOLUTE AUTO 0.04 K/mm3 (0.00-0.23); BASOPHILS PERCENT AUTO 0 % (0-2); EOSINOPHILS ABSOLUTE AUTO 0.11 K/mm3 (0.00-0.68); EOSINOPHILS PERCENT AUTO 1 % (0-6); Hematocrit 36.7 % (33.0-51.0); Hemoglobin 12.4 g/dL (11.5-16.0); IMMATURE GRAN ABSOLUTE AUTO 0.13 K/mm3 (0.00-0.10); IMMATURE GRAN PERCENT AUTO 1 % (0-1); LYMPHOCYTES ABSOLUTE AUTO 1.24 K/mm3 (0.84-5.20); LYMPHOCYTES PERCENT AUTO 7 % (21-46); MONOCYTES ABSOLUTE AUTO 1.68 K/mm3 (0.16-1.47); MONOCYTES PERCENT AUTO 9 % (4-13); Mean Corpuscular HGB 29.4 pg (26.0-34.0); Mean Corpuscular HGB Conc 33.8 g/dL (31.5-36.5); Mean Corpuscular Volume 87 fL (80-100); Mean Platelet Volume 9.4 fL (9.1-12.4); NEUTROPHILS ABSOLUTE AUTO 15.32 K/mm3 (1.96-9.15); NEUTROPHILS PERCENT AUTO 83 % (41-73); Platelet Count 289 K/mm3 (150-400); RDW Coefficient Variation 13.2 % (11.7-14.2); RDW Standard Deviation 42.5 fL (35.1-46.3); Red Blood Cell Count 4.22 M/mm3 (3.80-5.20); White Blood Cell Count 18.52 K/mm3 (4.00-11.30)
[2021-11-06 11:14] LABS: Bilirubin, Urine Neg (Neg); Blood, Urine 5+ (Neg); Glucose Qualitative, Urine Neg (Neg); Ketones, Urine Neg (Neg); Leukocyte Esterase, Urine 3+ (Neg); Nitrite, Urine Neg (Neg); Protein, Urine 3+ (Neg); Urobilinogen, Urine NORM (Normal)
[2021-11-06 11:21] LABS: Appearance, Urine Cloudy (Clear); Color, Urine Yellow (P-Yellow); White Blood Cells, Urine TNTC /hpf (0-5)
[2021-11-06 11:22] LABS: Bacteria Mod /hpf; Red Blood Cells, Urine TNTC /hpf (0-2); Squamous Epithelial Cells Rare /hpf (Few)
[2021-11-06 11:30] LABS: Bun/Creatinine Ratio 27.2 (12.0-20.0); Creatinine, Blood 1.58 mg/dL (0.40-1.00); Potassium, Blood 4.1 mmol/L (3.5-5.5)
[2021-11-06 11:40] LABS: Influenza A, PCR NEGATIVE (NEGATIVE); Influenza B, PCR NEGATIVE (NEGATIVE); Resp Syncytial Virus, PCR NEGATIVE (NEGATIVE); SARS-Cov-2 (COVID-19) PCR, MMC NEGATIVE (NEGATIVE)
[2021-11-06] MEDS ORDERED: CALCIUM 500 MG1 EAC2 PO (17:16)
[2021-11-06] MEDS ORDERED: Norco 5-325 Ta1 EACH PO (17:23)
--- NOTE | 2021-11-07 05:16 | NUR ---
WATER SERVICE DISPATCHER SUMMARY PATIENT HAD A FAIR SHIFT. STARTED WITH HIM HAVING REACTION TO VANCOMYCIN AND WHICH WAS SORTED OUT BY THE DAY SHIFT RN. HE WAS GIVEN BENADRYL. AND HE DID NOT LODGE ANY OTHER COMPLAINT.WILL CONTINUE TO MONITOR HIM. HIS VITALS REMAINED STABLE AFTERWARDS.
--- NOTE | 2021-11-07 05:20 | NUR ---
SOCIAL MEDIA COMMUNITY MANAGER SUMMARY PATIENT HAD A FAIR SHIFT. HER V/S WERE STABLE.. SHE HAS TRMORS WHEN SHE IS AWAKE. BUT SHE WAS MOSTLY ASLEEP OVERNIGHT. WILL CONTINUE TO MONITOR HER.
[2021-11-07 05:47] LABS: BASOPHILS ABSOLUTE AUTO 0.07 K/mm3 (0.00-0.23); BASOPHILS PERCENT AUTO 0 % (0-2); EOSINOPHILS ABSOLUTE AUTO 0.48 K/mm3 (0.00-0.68); EOSINOPHILS PERCENT AUTO 3 % (0-6); Hematocrit 34.4 % (33.0-51.0); Hemoglobin 11.5 g/dL (11.5-16.0); IMMATURE GRAN PERCENT AUTO 1 % (0-1); LYMPHOCYTES ABSOLUTE AUTO 0.98 K/mm3 (0.84-5.20); LYMPHOCYTES PERCENT AUTO 6 % (21-46); MONOCYTES ABSOLUTE AUTO 1.53 K/mm3 (0.16-1.47); MONOCYTES PERCENT AUTO 9 % (4-13); Mean Corpuscular HGB 29.2 pg (26.0-34.0); Mean Corpuscular HGB Conc 33.4 g/dL (31.5-36.5); Mean Corpuscular Volume 87 fL (80-100); Mean Platelet Volume 9.7 fL (9.1-12.4); NEUTROPHILS ABSOLUTE AUTO 13.78 K/mm3 (1.96-9.15); NEUTROPHILS PERCENT AUTO 81 % (41-73); Platelet Count 268 K/mm3 (150-400); RDW Coefficient Variation 13.2 % (11.7-14.2); RDW Standard Deviation 42.4 fL (35.1-46.3); Red Blood Cell Count 3.94 M/mm3 (3.80-5.20); White Blood Cell Count 16.94 K/mm3 (4.00-11.30)
[2021-11-07 07:04] LABS: Magnesium, Blood 1.9 mg/dL (1.6-2.4)
[2021-11-07 07:06] LABS: Albumin, Blood 2.4 g/dL (3.4-5.0); Albumin/Globulin Ratio 0.7 (0.8-1.8); Bilirubin, Total 0.8 mg/dL (0.1-1.0); Bun/Creatinine Ratio 32.5 (12.0-20.0); Calcium, Blood 10.2 mg/dL (8.5-10.1); Creatinine, Blood 1.14 mg/dL (0.40-1.00); Globulin, Blood 3.3 g/dL (2.2-4.0); Potassium, Blood 3.9 mmol/L (3.5-5.5); Total Protein, Blood 5.7 g/dL (6.4-8.2)
--- NOTE | 2021-11-07 16:53 | NUR ---
PATIENT IS ALERT AND ORIENTED WITH SOME INTERMITTENT CONFUSION AND COOPERATIVE WITH CARE. SHE SLEPT BETWEEN MEALS BUT WAS ABLE TO WAKE UP AND FEED HERSELF BREAKFAST AND LUNCH. THE PATIENT'S DAUGHTER BROUGHT IN THE PATIENT'S TOP DENTURES AND CPAP TODAY. THE PATIENT'S DAUGHTER IS AT THE BEDSIDE NOW. HER IS IN PLACE. ON A MECHANICAL SOFT DIET. NS RUNNING AT 125 ML/HR. PATIENT IS BEDBOUND AT BASELINE. WILL CONTINUE TO MONITOR
--- NOTE | 2021-11-08 03:14 | NUR ---
JOURNEYMAN MEAT CUTTER SUMMARY PATIENT HAD A FAIR SHIFT, SHE IS MORE ALERT AND ORIENTED. HER CPAP FROM HOME WAS AVAILABLE AND SHE WAS PLACED ON IT. VITALS WERE STABLE. SHE LODGED NIL FRESH COMPLAINT. WILL CONTINUE TO MONITOR HER.
[2021-11-08 05:52] LABS: BASOPHILS ABSOLUTE AUTO 0.05 K/mm3 (0.00-0.23); BASOPHILS PERCENT AUTO 1 % (0-2); EOSINOPHILS PERCENT AUTO 1 % (0-6); Hematocrit 33.7 % (33.0-51.0); Hemoglobin 11.2 g/dL (11.5-16.0); IMMATURE GRAN ABSOLUTE AUTO 0.05 K/mm3 (0.00-0.10); IMMATURE GRAN PERCENT AUTO 1 % (0-1); LYMPHOCYTES ABSOLUTE AUTO 1.06 K/mm3 (0.84-5.20); LYMPHOCYTES PERCENT AUTO 10 % (21-46); MONOCYTES ABSOLUTE AUTO 1.11 K/mm3 (0.16-1.47); MONOCYTES PERCENT AUTO 11 % (4-13); Mean Corpuscular HGB 29.1 pg (26.0-34.0); Mean Corpuscular HGB Conc 33.2 g/dL (31.5-36.5); Mean Corpuscular Volume 88 fL (80-100); Mean Platelet Volume 9.4 fL (9.1-12.4); NEUTROPHILS ABSOLUTE AUTO 8.08 K/mm3 (1.96-9.15); NEUTROPHILS PERCENT AUTO 77 % (41-73); Platelet Count 243 K/mm3 (150-400); RDW Coefficient Variation 13.2 % (11.7-14.2); RDW Standard Deviation 42.5 fL (35.1-46.3); Red Blood Cell Count 3.85 M/mm3 (3.80-5.20); White Blood Cell Count 10.45 K/mm3 (4.00-11.30)
[2021-11-08 07:00] LABS: Albumin, Blood 2.3 g/dL (3.4-5.0); Anion Gap 7 mmol/L (6-16); Blood Urea Nitrogen 32 mg/dL (8-24); Bun/Creatinine Ratio 33.1 (12.0-20.0); CO2, Blood 23 mmol/L (21-32); Calcium, Blood 9.6 mg/dL (8.5-10.1); Chloride, Blood 108 mmol/L (98-108); Creatinine, Blood 0.97 mg/dL (0.40-1.00); Glomerular Filtration Rate 55 (60-); Glucose, Blood 125 mg/dL (70-99); Phosphorus, Blood 2.3 mg/dL (2.5-4.9); Potassium, Blood 3.8 mmol/L (3.5-5.5); Sodium, Blood 138 mmol/L (136-145)
[2021-11-08] MEDS ORDERED: VISBIOME 112.51 EACH PO (14:36)
[2021-11-08] MEDS ORDERED: VITAMIN D5000 UNIT PO (14:37)
[2021-11-08] MEDS ORDERED: ERTAPENEM1 G6 IV (14:38)
[2021-11-08] MEDS ORDERED: AIRDUO RESPICL1 EAC4 INH (14:40)
[2021-11-08 15:17] LABS: Influenza A, PCR NEGATIVE (NEGATIVE); Influenza B, PCR NEGATIVE (NEGATIVE); Resp Syncytial Virus, PCR NEGATIVE (NEGATIVE); SARS-Cov-2 (COVID-19) PCR, MMC NEGATIVE (NEGATIVE)
--- NOTE | 2021-11-08 18:18 | NUR ---
PATIENT DISCHARGED AT 181 WITH [facility]. ACCORDING TO CARE MANAGEMENT, JAN AT [facility] SAID THE PATIENT COULD RETURN TO [facility]. POWERGLIDE LEFT IN PLACE. 20G LAC PULLED ON DISCHARGE
== END 2021-11-08 18:15 | DRG 698 ==
LOC: ER 10:17 → ERHOLD 12:32 → MEDS 12:32
PROVIDERS: Emergency Medicine; Internal Medicine; Nurse Practitioner Acute Care; ADMIT Internal Medicine
DX: T83.511A Infection and inflammatory reaction due to indwelling urethral catheter, initial encounter (principal); R65.20 Severe sepsis without septic shock; G92.8 Other toxic encephalopathy; A41.51 Sepsis due to Escherichia coli [E. coli]; I13.0 Hypertensive heart and chronic kidney disease with heart failure and stage 1 through stage 4 chronic kidney disease, or unspecified chronic kidney disease; N17.9 Acute kidney failure, unspecified; I67.89 Other cerebrovascular disease; L97.809 Non-pressure chronic ulcer of other part of unspecified lower leg with unspecified severity; Z16.12 Extended spectrum beta lactamase (ESBL) resistance; Z20.822 Contact with and (suspected) exposure to COVID-19; J44.9 Chronic obstructive pulmonary disease, unspecified; E11.22 Type 2 diabetes mellitus with diabetic chronic kidney disease; F03.90 Unspecified dementia, unspecified severity, without behavioral disturbance, psychotic disturbance, mood disturbance, and anxiety; I50.9 Heart failure, unspecified; E86.0 Dehydration; N39.0 Urinary tract infection, site not specified; M10.9 Gout, unspecified; N18.30 Chronic kidney disease, stage 3 unspecified; E03.9 Hypothyroidism, unspecified; G47.33 Obstructive sleep apnea (adult) (pediatric); F32.A Depression, unspecified; E83.52 Hypercalcemia; E11.51 Type 2 diabetes mellitus with diabetic peripheral angiopathy without gangrene; I87.2 Venous insufficiency (chronic) (peripheral); Z98.890 Other specified postprocedural states; Z90.49 Acquired absence of other specified parts of digestive tract; Z90.710 Acquired absence of both cervix and uterus; Z79.02 Long term (current) use of antithrombotics/antiplatelets; Z79.899 Other long term (current) drug therapy; Z88.1 Allergy status to other antibiotic agents; Z88.8 Allergy status to other drugs, medicaments and biological substances
CPT/HCPCS: 0241U; 36415; 51702; 71045; 80048; 80053; 80069; 81001; 82306; 82550; 82652; 83605; 83735; 83970; 84100; 84443; 85025; 87040; 87077; 87086; 87186; 93005; 93010; 94760; 96365; 99285-25; A9270; J0696; J1644; J7030; J7512

== ENCOUNTER → 2021-11-25 | Outpatient (CLI) | payer OTHER ==
[~2021-11-25] MED LIST changes: +AIRDUO RESPICL1 EAC4 INH; +CALCIUM 500 MG1 EAC2 PO; +DILT180 PO; +ERTAPENEM1 G6 IV; +METO50 PO; +Norco 5-325 Ta1 EACH PO; +ONDA4 PO; +VENL37.5ER PO; +VISBIOME 112.51 EACH PO; +VITAMIN D5000 UNIT PO
[2021-11-25 16:30] LABS: BASOPHILS ABSOLUTE AUTO 0.07 K/mm3 (0.00-0.23); BASOPHILS PERCENT AUTO 1 % (0-2); EOSINOPHILS ABSOLUTE AUTO 0.28 K/mm3 (0.00-0.68); EOSINOPHILS PERCENT AUTO 4 % (0-6); Hematocrit 36.2 % (33.0-51.0); Hemoglobin 11.8 g/dL (11.5-16.0); IMMATURE GRAN ABSOLUTE AUTO 0.02 K/mm3 (0.00-0.10); IMMATURE GRAN PERCENT AUTO 0 % (0-1); LYMPHOCYTES ABSOLUTE AUTO 1.54 K/mm3 (0.84-5.20); LYMPHOCYTES PERCENT AUTO 23 % (21-46); MONOCYTES ABSOLUTE AUTO 0.52 K/mm3 (0.16-1.47); MONOCYTES PERCENT AUTO 8 % (4-13); Mean Corpuscular HGB 28.3 pg (26.0-34.0); Mean Corpuscular HGB Conc 32.6 g/dL (31.5-36.5); Mean Corpuscular Volume 87 fL (80-100); NEUTROPHILS ABSOLUTE AUTO 4.36 K/mm3 (1.96-9.15); NEUTROPHILS PERCENT AUTO 64 % (41-73); Platelet Count 276 K/mm3 (150-400); RDW Coefficient Variation 13.3 % (11.7-14.2); RDW Standard Deviation 41.5 fL (35.1-46.3); Red Blood Cell Count 4.17 M/mm3 (3.80-5.20); White Blood Cell Count 6.79 K/mm3 (4.00-11.30)
[2021-11-25 16:42] LABS: Albumin, Blood 2.8 g/dL (3.4-5.0); Albumin/Globulin Ratio 0.8 (0.8-1.8); Bilirubin, Total 0.2 mg/dL (0.1-1.0); Bun/Creatinine Ratio 39.6 (12.0-20.0); Creatinine, Blood 0.98 mg/dL (0.40-1.00); Globulin, Blood 3.3 g/dL (2.2-4.0); Potassium, Blood 4.6 mmol/L (3.5-5.5); Total Protein, Blood 6.1 g/dL (6.4-8.2)
== END | disposition home or self-care (01) ==
LOC: EDSTATUS 10:51 → LAB RH 15:41
PROVIDERS: Internal Medicine
DX: J44.9 Chronic obstructive pulmonary disease, unspecified (principal); D64.9 Anemia, unspecified; Z95.4 Presence of other heart-valve replacement
CPT/HCPCS: 80053; 85025

== ENCOUNTER → 2021-12-09 | Outpatient (CLI) | payer OTHER ==
[2021-12-11 05:10] LABS: BASO (ABSOLUTE) 0.1 x10E3/uL (0.0-0.2); BASOS 1 % (Not Estab.); EOS 2 % (Not Estab.); EOS (ABSOLUTE) 0.2 x10E3/uL (0.0-0.4); HEMATOCRIT 40.5 % (34.0-46.6); HEMOGLOBIN 12.8 g/dL (11.1-15.9); IMMATURE GRANS (ABS) 0.1 x10E3/uL (0.0-0.1); IMMATURE GRANULOCYTES 1 % (Not Estab.); LYMPHS 13 % (Not Estab.); LYMPHS (ABSOLUTE) 1.2 x10E3/uL (0.7-3.1); MCH 28.2 pg (26.6-33.0); MCHC 31.6 g/dL (31.5-35.7); MCV 89 fL (79-97); MONOCYTES 6 % (Not Estab.); MONOCYTES(ABSOLUTE) 0.6 x10E3/uL (0.1-0.9); NEUTROPHILS 77 % (Not Estab.); NEUTROPHILS (ABSOLUTE) 6.8 x10E3/uL (1.4-7.0); PLATELETS 291 x10E3/uL (150-450); RBC 4.54 x10E6/uL (3.77-5.28); RDW 13.4 % (11.7-15.4); WBC 8.8 x10E3/uL (3.4-10.8)
[2021-12-11 07:11] LABS: A/G RATIO 1.1 (1.2-2.2); ALKALINE PHOSPHATASE, S 93 IU/L (44-121); ALT (SGPT) 14 IU/L (0-32); AST (SGOT) 17 IU/L (0-40); BILIRUBIN, TOTAL <0.2 mg/dL (0.0-1.2); BUN 37 mg/dL (8-27); BUN/CREATININE RATIO 43 (12-28); CALCIUM, SERUM 11.2 mg/dL (8.7-10.3); CARBON DIOXIDE, TOTAL 21 mmol/L (20-29); CHLORIDE, SERUM 96 mmol/L (96-106); CREATININE, SERUM 0.86 mg/dL (0.57-1.00); EGFR IF AFRICN AM 71 (>59); EGFR IF NONAFRICN AM 61 (>59); GLOBULIN, TOTAL 3.4 g/dL (1.5-4.5); GLUCOSE, SERUM 106 mg/dL (65-99); POTASSIUM, SERUM 4.6 mmol/L (3.5-5.2); SODIUM, SERUM 132 mmol/L (134-144)
== END | disposition home or self-care (01) ==
LOC: EDSTATUS 10:52 → LAB RH 17:38
PROVIDERS: Internal Medicine
DX: U07.1 COVID-19 (principal)
CPT/HCPCS: 80053; 85025

== ENCOUNTER 2021-12-27 00:38 | Day surgery (SDC) | payer OTHER ==
[~2021-12-27 00:38] MED LIST changes: -DILT180 PO; -METO50 PO; -VENL37.5ER PO
== END 2021-12-27 23:43 | disposition home or self-care (01) ==
LOC: WOUND 00:38
DX: E11.622 Type 2 diabetes mellitus with other skin ulcer (principal); L97.822 Non-pressure chronic ulcer of other part of left lower leg with fat layer exposed; I87.2 Venous insufficiency (chronic) (peripheral); E11.51 Type 2 diabetes mellitus with diabetic peripheral angiopathy without gangrene; R77.0 Abnormality of albumin; Z88.1 Allergy status to other antibiotic agents; Z88.8 Allergy status to other drugs, medicaments and biological substances; Z91.048 Other nonmedicinal substance allergy status; Z87.891 Personal history of nicotine dependence
CPT/HCPCS: A9270; G0463

== ENCOUNTER 2022-01-03 02:05 | Day surgery (SDC) | payer OTHER | END 2022-01-03 12:00 | disposition home or self-care (01) | LOC: WOUND 02:05 | DX: E11.622 Type 2 diabetes mellitus with other skin ulcer (principal); L97.822 Non-pressure chronic ulcer of other part of left lower leg with fat layer exposed; E11.51 Type 2 diabetes mellitus with diabetic peripheral angiopathy without gangrene; I87.2 Venous insufficiency (chronic) (peripheral); G47.30 Sleep apnea, unspecified; I12.9 Hypertensive chronic kidney disease with stage 1 through stage 4 chronic kidney disease, or unspecified chronic kidney disease; E11.22 Type 2 diabetes mellitus with diabetic chronic kidney disease; N18.9 Chronic kidney disease, unspecified; J45.909 Unspecified asthma, uncomplicated; E03.9 Hypothyroidism, unspecified; M10.9 Gout, unspecified; E78.5 Hyperlipidemia, unspecified; E66.9 Obesity, unspecified; Z68.30 Body mass index [BMI] 30.0-30.9, adult; Z87.891 Personal history of nicotine dependence | CPT/HCPCS: A9270; G0463 ==

== ENCOUNTER 2022-01-10 02:58 | Day surgery (SDC) | payer OTHER | END 2022-01-10 23:16 | disposition home or self-care (01) | LOC: WOUND 02:58 | DX: E11.622 Type 2 diabetes mellitus with other skin ulcer (principal); L97.822 Non-pressure chronic ulcer of other part of left lower leg with fat layer exposed; I87.2 Venous insufficiency (chronic) (peripheral); E11.51 Type 2 diabetes mellitus with diabetic peripheral angiopathy without gangrene; R77.0 Abnormality of albumin; G47.30 Sleep apnea, unspecified; J45.909 Unspecified asthma, uncomplicated; I12.9 Hypertensive chronic kidney disease with stage 1 through stage 4 chronic kidney disease, or unspecified chronic kidney disease; E11.22 Type 2 diabetes mellitus with diabetic chronic kidney disease; N18.9 Chronic kidney disease, unspecified; Z87.891 Personal history of nicotine dependence | CPT/HCPCS: A9270; G0463 ==

== ENCOUNTER 2022-01-17 00:48 | Day surgery (SDC) | payer OTHER | END 2022-01-17 23:59 | disposition home or self-care (01) | LOC: WOUND 00:48 | DX: E11.622 Type 2 diabetes mellitus with other skin ulcer (principal); L97.822 Non-pressure chronic ulcer of other part of left lower leg with fat layer exposed; I87.2 Venous insufficiency (chronic) (peripheral); E11.51 Type 2 diabetes mellitus with diabetic peripheral angiopathy without gangrene; R77.0 Abnormality of albumin; I12.9 Hypertensive chronic kidney disease with stage 1 through stage 4 chronic kidney disease, or unspecified chronic kidney disease; E11.22 Type 2 diabetes mellitus with diabetic chronic kidney disease; N18.9 Chronic kidney disease, unspecified; E78.5 Hyperlipidemia, unspecified; E03.9 Hypothyroidism, unspecified; J45.909 Unspecified asthma, uncomplicated; Z95.2 Presence of prosthetic heart valve; Z87.891 Personal history of nicotine dependence | CPT/HCPCS: A9270 ==

== ENCOUNTER 2022-01-24 01:11 | Day surgery (SDC) | payer OTHER | END 2022-01-24 23:04 | disposition home or self-care (01) | LOC: WOUND 01:11 | DX: E11.622 Type 2 diabetes mellitus with other skin ulcer (principal); L97.822 Non-pressure chronic ulcer of other part of left lower leg with fat layer exposed; I87.2 Venous insufficiency (chronic) (peripheral); E11.51 Type 2 diabetes mellitus with diabetic peripheral angiopathy without gangrene; R77.0 Abnormality of albumin; E78.5 Hyperlipidemia, unspecified; I12.9 Hypertensive chronic kidney disease with stage 1 through stage 4 chronic kidney disease, or unspecified chronic kidney disease; E11.22 Type 2 diabetes mellitus with diabetic chronic kidney disease; N18.9 Chronic kidney disease, unspecified; E03.9 Hypothyroidism, unspecified; J45.909 Unspecified asthma, uncomplicated; G47.30 Sleep apnea, unspecified; E66.9 Obesity, unspecified; Z87.891 Personal history of nicotine dependence; Z95.2 Presence of prosthetic heart valve; Z68.30 Body mass index [BMI] 30.0-30.9, adult | CPT/HCPCS: A9270 ==

== ENCOUNTER 2022-01-31 00:25 | Day surgery (SDC) | payer OTHER | END 2022-01-31 23:59 | disposition home or self-care (01) | LOC: WOUND 00:25 | DX: E11.622 Type 2 diabetes mellitus with other skin ulcer (principal); L97.822 Non-pressure chronic ulcer of other part of left lower leg with fat layer exposed; I87.2 Venous insufficiency (chronic) (peripheral); E11.51 Type 2 diabetes mellitus with diabetic peripheral angiopathy without gangrene; R77.0 Abnormality of albumin; G47.30 Sleep apnea, unspecified; J45.909 Unspecified asthma, uncomplicated; E03.9 Hypothyroidism, unspecified; I12.9 Hypertensive chronic kidney disease with stage 1 through stage 4 chronic kidney disease, or unspecified chronic kidney disease; E11.22 Type 2 diabetes mellitus with diabetic chronic kidney disease; N18.9 Chronic kidney disease, unspecified; E78.5 Hyperlipidemia, unspecified; Z87.891 Personal history of nicotine dependence; Z95.2 Presence of prosthetic heart valve | CPT/HCPCS: A9270; G0463 ==

== ENCOUNTER 2022-02-05 19:44 | Inpatient (IN) | payer OTHER ==
[~2022-02-05] VITALS: Ht 162.6 cm; Wt 84.5 kg
[2022-02-05 20:05] LABS: Source, Urine Straight Cath
[2022-02-05 20:06] LABS: BASOPHILS ABSOLUTE AUTO 0.11 K/mm3 (0.00-0.23); BASOPHILS PERCENT AUTO 0 % (0-2); EOSINOPHILS PERCENT AUTO 0 % (0-6); Hematocrit 38.6 % (33.0-51.0); Hemoglobin 12.9 g/dL (11.5-16.0); IMMATURE GRAN ABSOLUTE AUTO 0.34 K/mm3 (0.00-0.10); IMMATURE GRAN PERCENT AUTO 1 % (0-1); LYMPHOCYTES ABSOLUTE AUTO 1.35 K/mm3 (0.84-5.20); LYMPHOCYTES PERCENT AUTO 4 % (21-46); MONOCYTES ABSOLUTE AUTO 1.57 K/mm3 (0.16-1.47); MONOCYTES PERCENT AUTO 5 % (4-13); Mean Corpuscular HGB 28.7 pg (26.0-34.0); Mean Corpuscular HGB Conc 33.4 g/dL (31.5-36.5); Mean Corpuscular Volume 86 fL (80-100); Mean Platelet Volume 8.9 fL (9.1-12.4); NEUTROPHILS ABSOLUTE AUTO 28.73 K/mm3 (1.96-9.15); NEUTROPHILS PERCENT AUTO 90 % (41-73); Platelet Count 358 K/mm3 (150-400); RDW Coefficient Variation 14.5 % (11.7-14.2); RDW Standard Deviation 45.2 fL (35.1-46.3); Red Blood Cell Count 4.49 M/mm3 (3.80-5.20)
[2022-02-05 20:13] LABS: Appearance, Urine Turbid (Clear); Bilirubin, Urine Neg (Neg); Blood, Urine 5+ (Neg); Color, Urine Yellow (P-Yellow); Glucose Qualitative, Urine Neg (Neg); Ketones, Urine 1+ (Neg); Leukocyte Esterase, Urine 3+ (Neg); Nitrite, Urine Pos (Neg); Protein, Urine 4+ (Neg); Specific Gravity, Urine 1.015 (1.003-1.022); Urobilinogen, Urine NORM (Normal)
[2022-02-05 20:15] LABS: White Blood Cells, Urine TNTC /hpf (0-5)
[2022-02-05 20:17] LABS: Bacteria Many /hpf; Red Blood Cells, Urine 50-100 /hpf (0-2); Squamous Epithelial Cells Few /hpf (Few)
[2022-02-05 20:18] LABS: Transitional Epithelial Cells Few /hpf (0-Rare)
[2022-02-05 20:24] LABS: Albumin, Blood 2.8 g/dL (3.4-5.0); Albumin/Globulin Ratio 0.7 (0.8-1.8); Bilirubin, Direct 0.1 mg/dL (0.0-0.3); Bilirubin, Indirect 0.3 mg/dL (0.1-0.7); Bilirubin, Total 0.4 mg/dL (0.1-1.0); Bun/Creatinine Ratio 45.5 (12.0-20.0); Calcium, Blood 11.5 mg/dL (8.5-10.1); Globulin, Blood 3.9 g/dL (2.2-4.0); Magnesium, Blood 2.2 mg/dL (1.6-2.4); Phosphorus, Blood 3.7 mg/dL (2.5-4.9); Potassium, Blood 5.1 mmol/L (3.5-5.5); Total Protein, Blood 6.7 g/dL (6.4-8.2)
[2022-02-05 20:27] LABS: International Normalized Ratio 1.07; Prothrombin Time Results 11.2 Sec (9.7-11.5)
[2022-02-05 21:02] LABS: Influenza A, PCR NEGATIVE (NEGATIVE); Influenza B, PCR NEGATIVE (NEGATIVE); Resp Syncytial Virus, PCR NEGATIVE (NEGATIVE); SARS-Cov-2 (COVID-19) PCR, MMC NEGATIVE (NEGATIVE)
[2022-02-05] MEDS ORDERED: VENL37.5ER PO (23:43)
[2022-02-06 02:02] LABS: BASOPHILS PERCENT AUTO 0 % (0-2); EOSINOPHILS ABSOLUTE AUTO 0.01 K/mm3 (0.00-0.68); EOSINOPHILS PERCENT AUTO 0 % (0-6); Hematocrit 37.8 % (33.0-51.0); Hemoglobin 12.6 g/dL (11.5-16.0); IMMATURE GRAN ABSOLUTE AUTO 0.34 K/mm3 (0.00-0.10); IMMATURE GRAN PERCENT AUTO 1 % (0-1); LYMPHOCYTES ABSOLUTE AUTO 1.04 K/mm3 (0.84-5.20); LYMPHOCYTES PERCENT AUTO 4 % (21-46); MONOCYTES ABSOLUTE AUTO 1.32 K/mm3 (0.16-1.47); MONOCYTES PERCENT AUTO 5 % (4-13); Mean Corpuscular HGB 28.8 pg (26.0-34.0); Mean Corpuscular HGB Conc 33.3 g/dL (31.5-36.5); Mean Corpuscular Volume 86 fL (80-100); Mean Platelet Volume 8.8 fL (9.1-12.4); NEUTROPHILS ABSOLUTE AUTO 24.65 K/mm3 (1.96-9.15); NEUTROPHILS PERCENT AUTO 90 % (41-73); Platelet Count 295 K/mm3 (150-400); RDW Coefficient Variation 14.5 % (11.7-14.2); RDW Standard Deviation 45.7 fL (35.1-46.3); Red Blood Cell Count 4.38 M/mm3 (3.80-5.20); White Blood Cell Count 27.46 K/mm3 (4.00-11.30)
[2022-02-06 02:20] LABS: Albumin, Blood 2.8 g/dL (3.4-5.0); Albumin/Globulin Ratio 0.7 (0.8-1.8); Bilirubin, Total 0.4 mg/dL (0.1-1.0); Bun/Creatinine Ratio 45.5 (12.0-20.0); Calcium, Blood 11.9 mg/dL (8.5-10.1); Creatinine, Blood 2.13 mg/dL (0.40-1.00); Globulin, Blood 3.9 g/dL (2.2-4.0); Potassium, Blood 4.7 mmol/L (3.5-5.5); Total Protein, Blood 6.7 g/dL (6.4-8.2)
--- NOTE | 2022-02-06 02:57 | NUR ---
86 YR F ADMITTED ON 02/05/22 FOR UTI AND POSSIBLE SEPSIS. CODE STATUS WILL NEED TO BE DETERMINED W/ PT AND HER DAUGHTER WHO IS ON HER POLST. PT STATES SHE IS FULL CODE BUT POLST STATES DNR. PT IS PLEASANT AND COOPERATIVE. SHE COMES FROM [facility] AND HAS A CHRONIC HER WHICH HAS CAUSED HER TO HAVE MULTIPLE UTI'S ACCORDING TO HER DAUGHTER. AFTER INITIAL ARRIVAL TO HER ROOM AFTER MIDNIGHT, PT WAS TIRED AND BASICALLY JUST WANTED TO SLEEP. SHE WAS SEEN AND EXAMINED BY HOSPITALIST AFTER ARRIVING TO HER ROOM.
--- NOTE | 2022-02-06 14:11 | NUR ---
SINUS TACH, ATRIAL TACHYCARDIA NOTIFIED OF INTERMITTENT SHORT LIVED BOUTS OF ATRIAL TACHYCARDIA AND HR 110'S BY TELE MONITOR. DR. RIBERA WAS NOTIFIED OF THIS. NO NEW ORDER.
--- NOTE | 2022-02-06 17:24 | NUR ---
Shift Summary A/O to self and family. Sleeping most of the day. Appetite is poor despite encouragement to eat. FIBERGLASS SKI MAKER even offered to feed patient but she declined and stated to this RN that she was not hungry. Dr. Hodges replaced NS with LR, LR infusing at 150 mLs/hr. Pichardo intact and draining to gravity, urine is foul smelling with moderate amounts of sediments. Daughter Cata visited and would like to be notified when UA culture finalizes . HR remains tachy at 110's.
[2022-02-07 04:44] LABS: Albumin, Blood 2.5 g/dL (3.4-5.0); Albumin/Globulin Ratio 0.6 (0.8-1.8); Bilirubin, Total 0.5 mg/dL (0.1-1.0); Bun/Creatinine Ratio 53.3 (12.0-20.0); Calcium, Blood 11.2 mg/dL (8.5-10.1); Creatinine, Blood 1.69 mg/dL (0.40-1.00); Globulin, Blood 3.9 g/dL (2.2-4.0); Potassium, Blood 4.2 mmol/L (3.5-5.5); Total Protein, Blood 6.4 g/dL (6.4-8.2)
[2022-02-07 04:57] LABS: BASOPHILS ABSOLUTE AUTO 0.04 K/mm3 (0.00-0.23); BASOPHILS PERCENT AUTO 0 % (0-2); EOSINOPHILS ABSOLUTE AUTO 0.13 K/mm3 (0.00-0.68); EOSINOPHILS PERCENT AUTO 1 % (0-6); Hemoglobin 11.2 g/dL (11.5-16.0); IMMATURE GRAN ABSOLUTE AUTO 0.09 K/mm3 (0.00-0.10); IMMATURE GRAN PERCENT AUTO 1 % (0-1); LYMPHOCYTES PERCENT AUTO 6 % (21-46); MONOCYTES ABSOLUTE AUTO 0.76 K/mm3 (0.16-1.47); MONOCYTES PERCENT AUTO 5 % (4-13); Mean Corpuscular HGB Conc 32.9 g/dL (31.5-36.5); Mean Corpuscular Volume 88 fL (80-100); Mean Platelet Volume 9.5 fL (9.1-12.4); NEUTROPHILS ABSOLUTE AUTO 12.85 K/mm3 (1.96-9.15); NEUTROPHILS PERCENT AUTO 87 % (41-73); Platelet Count 233 K/mm3 (150-400); RDW Coefficient Variation 14.7 % (11.7-14.2); RDW Standard Deviation 46.9 fL (35.1-46.3); Red Blood Cell Count 3.86 M/mm3 (3.80-5.20); White Blood Cell Count 14.77 K/mm3 (4.00-11.30)
--- NOTE | 2022-02-07 05:55 | NUR ---
SHIFT SUMMARY 86 YR F ADMITTED ON 02/07/22 FOR UTI/SEPSIS. PT HAS SLEPT FOR MOST OF THIS SHIFT. ACCORDING TO EVS ATTENDANT, HR STAYED IN THE 140'S-150'S CONSISTENTLY FOR SEVERAL HOURS. HOSPITALIST WAS CALLED AND 5 MG LOPRESSOR IV WAS ORDERED WELL NS @ 75 ML/HR. PER EVS ATTENDANT PT IS NOW IN THE 120'S APPROX 35-40 MIN AFTER ADMIN OF LOPRESSOR. PT DID NOT APPEAR TO BE IN ANY DISTRESS OR PAIN AND WAS SLEEPING COMFORTABLY.
--- NOTE | 2022-02-07 08:07 | NUR ---
DR. Juanita APPIAH NOTIFIED HEART RATE WAS 150'S LAST NITE AND GIVEN LOPRESSOR. NOW IN 120'S BUT BUMPING TO 150'S. MD TO LOOK AT MEDS AND POSSIBLY ADD PRNS
--- NOTE | 2022-02-07 11:11 | NUR ---
updated daughter, manan, on condition
--- NOTE | 2022-02-07 15:03 | NUR ---
ALERT TO SELF. WILL JOKE AROUND WHEN ASKED A QUESTION AND DOES NOT KNOW ANSWER. LAST NIGHT WAS AFIB WITH BEATS OF SINUS TACH WITH THE SAME TODAY. CURRENTLY 120'S. CONTINUOUS SAT MONITOR ON. GIVEN TYLENOL FOR PAIN SHE DESCRIBES "ALL OVER." WAS ABLE TO SLEEP AFTERWARDS. POOR APPETITE. SEEMS TO BE UNABLE TO CHEW EVEN THOUGH HAS DENTURES IN. DIET CHANGED TO MECH SOFT. IV INFUSING. WCTM
--- NOTE | 2022-02-07 17:34 | NUR ---
ALERT TO SELF. PLEASANT. COOPERATIVE. GIVEN MEDS FOR C/O ALL OVER BODY PAIN WITH GOOD RESULTS. TURNED PRN. USED CALAZINE AND ALOE MIX ON BUTTOCK. NO REDNESS OR SORES SEEN. DRESSING TO LEFT LEG CHANGED AND PIC TAKEN. APPEARS TO HAVE A SCAB HEALING WELL. RT LEG SCAB AGRICULTURE SCIENCE TEACHER. FOOD CHANGED TO GROUND MEAT PATIENT STS SHE COULD NOT EAT LUNCH WHICH HAD CHUNKS OF CHICKEN. IV PATENT AND INFUSING. WCTM
[2022-02-08 05:26] LABS: BASOPHILS ABSOLUTE AUTO 0.02 K/mm3 (0.00-0.23); BASOPHILS PERCENT AUTO 0 % (0-2); EOSINOPHILS ABSOLUTE AUTO 0.12 K/mm3 (0.00-0.68); EOSINOPHILS PERCENT AUTO 2 % (0-6); Hematocrit 37.2 % (33.0-51.0); IMMATURE GRAN ABSOLUTE AUTO 0.04 K/mm3 (0.00-0.10); IMMATURE GRAN PERCENT AUTO 1 % (0-1); LYMPHOCYTES PERCENT AUTO 5 % (21-46); MONOCYTES ABSOLUTE AUTO 0.37 K/mm3 (0.16-1.47); MONOCYTES PERCENT AUTO 5 % (4-13); Mean Corpuscular HGB 28.5 pg (26.0-34.0); Mean Corpuscular HGB Conc 32.3 g/dL (31.5-36.5); Mean Corpuscular Volume 88 fL (80-100); Mean Platelet Volume 9.2 fL (9.1-12.4); NEUTROPHILS ABSOLUTE AUTO 7.24 K/mm3 (1.96-9.15); NEUTROPHILS PERCENT AUTO 88 % (41-73); Platelet Count 234 K/mm3 (150-400); RDW Coefficient Variation 14.5 % (11.7-14.2); RDW Standard Deviation 46.7 fL (35.1-46.3); Red Blood Cell Count 4.21 M/mm3 (3.80-5.20); White Blood Cell Count 8.19 K/mm3 (4.00-11.30)
--- NOTE | 2022-02-08 05:35 | NUR ---
SHIFT SUMMARY PATIENT ALERT AND ORIENTED X1. MEDICATED PER EMAR FOR PAIN. HAD NO COMPLAINTS OF SHORTNESS OF BREATH. NO ACUTE ISSUES NOTED OVERNIGHT. BED IN LOWEST POSITION WITH WHEELS LOCKED AND ALARM ON. CALL LIGHT WITHIN REACH. REPORT GIVEN TO ONCOMING RN.
[2022-02-08 05:52] LABS: Albumin, Blood 2.6 g/dL (3.4-5.0); Albumin/Globulin Ratio 0.6 (0.8-1.8); Bilirubin, Total 0.3 mg/dL (0.1-1.0); Bun/Creatinine Ratio 50.4 (12.0-20.0); Calcium, Blood 11.5 mg/dL (8.5-10.1); Creatinine, Blood 1.27 mg/dL (0.40-1.00); Globulin, Blood 4.3 g/dL (2.2-4.0); Potassium, Blood 3.8 mmol/L (3.5-5.5); Total Protein, Blood 6.9 g/dL (6.4-8.2)
--- NOTE | 2022-02-08 06:16 | NUR ---
PHYSICIAN COMMUNICATION CONTACTED DR POTTER AND NOTIFIED HIM THAT THE PATIENT'S HEART RATE IS SUSTAINING IN THE 130'S AND REPORTED MOST RECENT BLOOD PRESSURE. DR POTTER SAID TO GIVE PATIENT'S PO MORNING DOSE OF LOPRESSOR NOW WELL 5 MG IV LOPRESSOR NOW.
--- NOTE | 2022-02-08 07:57 | NUR ---
pt layinging in bed complains of sob, confused this am, states she has some pain in lower abd, lungs are clear in upper [place], dim in bases, sats 87%, placed her on 2 liters, sats up to 94%, reporst sob, hrirr, tele in place, running afib in the 120 to 140's per monitor, see strip, no edema noted, ppp+2, cap refill<3sec, afebrile, iv site to lfa infusing lr as ordered, bt hypoactive, abd round soft tender in lower abd, attends in place, chronic lu cath in place, skin has wounds to b/l lower ext, dressing on left side, right is open to air, maew, general weakness, pt reports it's been quite a while since she has been obecki prajapati, call light in reach, call to Dr. Antonia Alexander to notify of finding.
--- NOTE | 2022-02-08 15:17 | NUR ---
Pt heart rate is continuing to run 120 to 140's, labile, resp are in the 30's, asked Dr. Millan to look at her as bolus not improving rate, will tx to pcu for cardizem gtt. report given to Cyndi YA. will take via bed at this time. daughter notified of transfer.
--- NOTE | 2022-02-08 16:31 | NUR ---
ASSUMED CARE PT TRANSFERRED TO UNIT DUE TO AFIB WITH RVR. PT ALERT AND ORIENTED TO SELF AND PLACE. PT FOLLOWING DIRECTIONS, BUT IS REPETITIVE IN RESPONSES. BP STABLE. HR AFIB 130'S. RR IN THE 30'S. PT DENIES ANY PAIN. LS CLEAR, BUT DIM THROUGHOUT. LR INFUSING PER ORDERS. NEW IV STARTED AND CARDIZEM GTT STARTED AT 5ML/HR. PT ORIENTED TO UNIT AND CALL SYSTEM. WILL CONTINUE TO MONITOR CLOSELY AND REPORT TO ONCOMING RN
--- NOTE | 2022-02-08 20:14 | NUR ---
ASSUMED PT CARE FROM RN ON DAYSHIFT. PT IS SLEEPING, WAKES EASILY TO NOISE. ORIENTED TO SELF AND LOCATION. PT HAD MODERATE LOOSE BM. LYDIA CARE COMPLETED AND REPOSITIONED OFF OF BACK. CARDAZIM DRIP INCREASED TO 15 MG/HR DUE TO HR IN 130'S. BP STABLE FOR INCREASED RATE. WILL MONITOR. SPOKE WITH PT'S DAUGHTER CAT ON PHONE, WHO IS POA.
--- NOTE | 2022-02-08 22:28 | NUR ---
PT REPOSITIONED ONTO BACK. SAFETY MEASURES IN PLACE.
--- NOTE | 2022-02-09 00:28 | NUR ---
PT COMPLAINING OF PAIN IN HERNIA. MEDICATED FOR PAIN, SEE EMMANUEL. WILL MONITOR. SAFETY MEASURES IN PLACE.
[2022-02-09 03:37] LABS: BASOPHILS ABSOLUTE AUTO 0.02 K/mm3 (0.00-0.23); BASOPHILS PERCENT AUTO 0 % (0-2); EOSINOPHILS ABSOLUTE AUTO 0.03 K/mm3 (0.00-0.68); EOSINOPHILS PERCENT AUTO 0 % (0-6); Hematocrit 31.8 % (33.0-51.0); Hemoglobin 10.5 g/dL (11.5-16.0); IMMATURE GRAN ABSOLUTE AUTO 0.04 K/mm3 (0.00-0.10); IMMATURE GRAN PERCENT AUTO 1 % (0-1); LYMPHOCYTES ABSOLUTE AUTO 0.89 K/mm3 (0.84-5.20); LYMPHOCYTES PERCENT AUTO 11 % (21-46); MONOCYTES PERCENT AUTO 12 % (4-13); Mean Corpuscular Volume 88 fL (80-100); Mean Platelet Volume 9.7 fL (9.1-12.4); NEUTROPHILS ABSOLUTE AUTO 5.91 K/mm3 (1.96-9.15); NEUTROPHILS PERCENT AUTO 76 % (41-73); Platelet Count 226 K/mm3 (150-400); RDW Coefficient Variation 14.2 % (11.7-14.2); RDW Standard Deviation 45.4 fL (35.1-46.3); Red Blood Cell Count 3.62 M/mm3 (3.80-5.20); White Blood Cell Count 7.79 K/mm3 (4.00-11.30)
[2022-02-09 04:01] LABS: Albumin, Blood 2.3 g/dL (3.4-5.0); Albumin/Globulin Ratio 0.6 (0.8-1.8); Bilirubin, Total 0.3 mg/dL (0.1-1.0); Bun/Creatinine Ratio 45.2 (12.0-20.0); Calcium, Blood 10.6 mg/dL (8.5-10.1); Creatinine, Blood 0.95 mg/dL (0.40-1.00); Globulin, Blood 3.7 g/dL (2.2-4.0); Potassium, Blood 3.5 mmol/L (3.5-5.5)
--- NOTE | 2022-02-09 06:08 | NUR ---
LYDIA CARE PERFORMED DUE TO INCONTINENT STOOL. REPOSITIONED, PT TOLERATED WELL. ENCOURAGED TO LEAVE O2 ON. SAFETY MEASURES IN PLACE.
--- NOTE | 2022-02-09 17:34 | NUR ---
SHIFT SUMMARY PT REMAINS ALERT AND ORIENTED TO SELF AND FOLLOWING DIRECTIONS. PT KNOWS SHE IS AT THE HOSPITAL. PT DOES HAVE MOMENTS OF CONFUSION AND REPETITVE SPEECH. CARDIZEM GTT STOPPED THIS SHIFT AND PO CARDIZEM STARTED. HR AFIB 90-110 THIS EVENING. BP STABLE. PT HAS BEEN ON 1L NC MOST OF SHIFT, BUT HAS BEEN RESTING FOR ABOUT 1 HOUR ON CPAP THIS EVENING. PT DENIES ANY PAIN. PT HAD ONE CONTINENT BM THIS SHIFT. TAINA PATENT ADN DRAINING. DAUGHTER UPDATED BY PHONE. WILL CONTINUE TO MONITOR AND REPORT TO ONCOMING RN
--- NOTE | 2022-02-09 20:49 | NUR ---
CARE ASSUMPTION: RECEIVED REPORT FROM FELTON PATEL. PATIENT ASLEEP IN BED WITH HOME CPAP IN PLACE WITH 2L BLEED IN. HR<110, O2 >94%, BP WNL. PATIENT ANSWERS ORIENTATION QUESTIONS APPROPRIATELY X2 (CITY AND LOCATION). WHEN ASKED ANY NONSTANDARD QUESTIONS (DAUGHTER'S NAME, WHERE SHE LIVES, ETC) HER SPEECH IS GARBLED. DEMENTIA AND W/C BOUND AT BASELINE.
--- NOTE | 2022-02-10 04:38 | NUR ---
SHIFT SUMMARY: PATIENT'S VSS T/O SHIFT. CPAP IN PLACE WITH 2L BLEED IN. DENIES SOB AND CHEST PAIN. HR <100. PATIENT EXHIBITED MILD CONFUSION IN CONGRUENCE WITH BASELINE AND COULD BE REORIENTED. PLEASANT AND COOPERATIVE WITH CARE. SLEPT MOST OF THE NIGHT. WILL CONTINUE TO MONITOR AND REPORT TO ONCOMING RN.
[2022-02-10 08:24] LABS: BASOPHILS ABSOLUTE AUTO 0.03 K/mm3 (0.00-0.23); BASOPHILS PERCENT AUTO 0 % (0-2); EOSINOPHILS ABSOLUTE AUTO 0.19 K/mm3 (0.00-0.68); EOSINOPHILS PERCENT AUTO 2 % (0-6); Hematocrit 33.6 % (33.0-51.0); Hemoglobin 10.8 g/dL (11.5-16.0); IMMATURE GRAN ABSOLUTE AUTO 0.13 K/mm3 (0.00-0.10); IMMATURE GRAN PERCENT AUTO 2 % (0-1); LYMPHOCYTES PERCENT AUTO 11 % (21-46); MONOCYTES ABSOLUTE AUTO 0.79 K/mm3 (0.16-1.47); MONOCYTES PERCENT AUTO 10 % (4-13); Mean Corpuscular HGB 28.4 pg (26.0-34.0); Mean Corpuscular HGB Conc 32.1 g/dL (31.5-36.5); Mean Corpuscular Volume 88 fL (80-100); Mean Platelet Volume 9.6 fL (9.1-12.4); NEUTROPHILS ABSOLUTE AUTO 6.09 K/mm3 (1.96-9.15); NEUTROPHILS PERCENT AUTO 75 % (41-73); Platelet Count 206 K/mm3 (150-400); RDW Coefficient Variation 14.2 % (11.7-14.2); RDW Standard Deviation 46.1 fL (35.1-46.3); White Blood Cell Count 8.13 K/mm3 (4.00-11.30)
[2022-02-10 09:07] LABS: Albumin, Blood 2.3 g/dL (3.4-5.0); Albumin/Globulin Ratio 0.6 (0.8-1.8); Bilirubin, Total 0.5 mg/dL (0.1-1.0); Calcium, Blood 9.7 mg/dL (8.5-10.1); Creatinine, Blood 1.05 mg/dL (0.40-1.00); Globulin, Blood 3.6 g/dL (2.2-4.0); Potassium, Blood 3.2 mmol/L (3.5-5.5); Total Protein, Blood 5.9 g/dL (6.4-8.2)
--- NOTE | 2022-02-10 17:27 | NUR ---
SHIFT SUMMARY PT REMAINS ALERT AND ORIENTED TO SELF, PLACE, DATE AND FAMILY. PT ASNWERING QUESTIONS APPROPRIATELY. VS STABLE. HR REMAINS AFIB 80'S. O2 SATS REMAIN ABOVE 90% ON RA. PT WAS ON CPAP ABOUT 1 HOUR WHILE NAPPING THIS SHIFT. PT REPOSITIONED Q2H. HER PATENT AND DRAINING. DRESSING CHANGED TO LLE, AND BOTH WOUNDS TO LE CLEANED. DAUGHTER UPDATED THIS SHIFT. WILL CONTINUE TO MONITOR AND REPORT TO ONCOMING RN
[2022-02-11 04:28] LABS: Hematocrit 32.1 % (33.0-51.0); Hemoglobin 10.5 g/dL (11.5-16.0)
[2022-02-11 04:40] LABS: Albumin, Blood 2.2 g/dL (3.4-5.0); Anion Gap 8 mmol/L (6-16); Blood Urea Nitrogen 41 mg/dL (8-24); Bun/Creatinine Ratio 42.6 (12.0-20.0); CO2, Blood 24 mmol/L (21-32); Calcium, Blood 9.5 mg/dL (8.5-10.1); Chloride, Blood 104 mmol/L (98-108); Creatinine, Blood 0.96 mg/dL (0.40-1.00); Glomerular Filtration Rate 55 (60-); Glucose, Blood 152 mg/dL (70-99); Phosphorus, Blood 2.3 mg/dL (2.5-4.9); Potassium, Blood 4.1 mmol/L (3.5-5.5); Sodium, Blood 136 mmol/L (136-145)
--- NOTE | 2022-02-11 05:48 | NUR ---
SHIFT SUMMARY HR STABLE. BP STABLE. NO CP OR PRESSURE REPORTED. OXYGEN SATURATION MAINTAINED ABOVE 92% ON HOME CPAP T/O SHIFT. SEE EHR FOR SETTINGS. PT TURNED Q 2 HRS. PT ALERT TO SELF, LOCATION. UNSURE OF YEAR.DRESSING ON L LEG INTACT. HER PATENT AND DRAINING TO GRAVITY. WILL CONT TO MONITOR UNTIL REPORT GIVEN TO KEMAL YA.
[2022-02-11] MEDS ORDERED: DILT180 PO (11:23)
[2022-02-11] MEDS ORDERED: METO50 PO (11:24)
[2022-02-11 13:37] LABS: Influenza A, PCR NEGATIVE (NEGATIVE); Influenza B, PCR NEGATIVE (NEGATIVE); Resp Syncytial Virus, PCR NEGATIVE (NEGATIVE); SARS-Cov-2 (COVID-19) PCR, MMC NEGATIVE (NEGATIVE)
--- NOTE | 2022-02-11 14:53 | NUR ---
PT DISCHARGE BACK TO [facility] WITH DISCHARGE ORDERS REPORT GIVEN TO MAXIMO AT [facility]. NO ACUTE CHANGE FOR THE SHIFT. CHRONIC HER KEPT REMAINS INTACT URINE DRAINING VIA GRAVITY. VITALS REMAINED STABLE SATS ABOVE 95% ON RA, BP SYSTOLIC 115'S, HRR REMAINED AFIB RATE CONTROLLED. LEG DRESSING WAS CHANGED, PT DENIES ANY CHEST PAIN/PRESSURE FOR THE SHIFT. NO ISSUES WITH MEALS TAKES PILLS WHOLE WITH WATER. PT TRANSPROTED VIA GURNEY, ALL BELONGINGS SENT WITH THE PT. DAUGHTER CALLED AND MADE AWARE OF THE TRANSFER/DISCHARGE
== END 2022-02-11 14:37 | DRG 871 ==
LOC: ER 19:44 → MEDS 19:45 → PCU 02-06 01:30 → MEDS 02-06 01:31 → PCU 02-08 15:33
PROVIDERS: Emergency Medicine; Family Medicine; Internal Medicine; ADMIT Internal Medicine
DX: A41.51 Sepsis due to Escherichia coli [E. coli] (principal); G92.8 Other toxic encephalopathy; J96.01 Acute respiratory failure with hypoxia; N39.0 Urinary tract infection, site not specified; N17.9 Acute kidney failure, unspecified; Z20.822 Contact with and (suspected) exposure to COVID-19; Z66 Do not resuscitate; I48.91 Unspecified atrial fibrillation; E86.0 Dehydration; N18.30 Chronic kidney disease, stage 3 unspecified; E87.6 Hypokalemia; F32.A Depression, unspecified; E11.22 Type 2 diabetes mellitus with diabetic chronic kidney disease; J44.9 Chronic obstructive pulmonary disease, unspecified; F41.9 Anxiety disorder, unspecified; I12.9 Hypertensive chronic kidney disease with stage 1 through stage 4 chronic kidney disease, or unspecified chronic kidney disease; G47.33 Obstructive sleep apnea (adult) (pediatric); M19.90 Unspecified osteoarthritis, unspecified site; E03.9 Hypothyroidism, unspecified; F03.90 Unspecified dementia, unspecified severity, without behavioral disturbance, psychotic disturbance, mood disturbance, and anxiety; Z88.1 Allergy status to other antibiotic agents; Z88.8 Allergy status to other drugs, medicaments and biological substances; Z79.899 Other long term (current) drug therapy; Z79.02 Long term (current) use of antithrombotics/antiplatelets; Z98.890 Other specified postprocedural states; Z90.710 Acquired absence of both cervix and uterus
CPT/HCPCS: 0241U; 36415; 71045; 80053; 80069; 81001; 82248; 82947; 83605; 83735; 83880; 84100; 84145; 84443; 85014; 85018; 85025; 85610; 85730; 87040; 87077; 87086; 87186; 93005; 93010; 93306; 94640; 94664; 94762; 96374; 99285-25; A9270; G0378; J0694; J1650; J1940; J2185; J7030; J7040; J7120

== ENCOUNTER → 2022-02-17 | Outpatient (CLI) | payer OTHER ==
[~2022-02-17] MED LIST changes: +DILT180 PO; +MERREM IV; +METO50 PO; +VENL37.5ER PO
[2022-02-17 20:21] LABS: Bun/Creatinine Ratio 41.2 (12.0-20.0); Calcium, Blood 11.1 mg/dL (8.5-10.1); Creatinine, Blood 1.02 mg/dL (0.40-1.00); Potassium, Blood 4.9 mmol/L (3.5-5.5)
== END | disposition home or self-care (01) ==
LOC: EDSTATUS 14:26 → LAB RH 18:04
PROVIDERS: Internal Medicine
DX: A41.9 Sepsis, unspecified organism (principal); E11.9 Type 2 diabetes mellitus without complications
CPT/HCPCS: 80048

== ENCOUNTER 2022-02-21 01:49 | Day surgery (SDC) | payer OTHER ==
[~2022-02-21 01:49] MED LIST changes: -MERREM IV
== END 2022-02-21 23:39 | disposition home or self-care (01) ==
LOC: WOUND 01:49
DX: E11.622 Type 2 diabetes mellitus with other skin ulcer (principal); L97.822 Non-pressure chronic ulcer of other part of left lower leg with fat layer exposed; E11.51 Type 2 diabetes mellitus with diabetic peripheral angiopathy without gangrene; I87.2 Venous insufficiency (chronic) (peripheral); R77.0 Abnormality of albumin
CPT/HCPCS: A9270; G0463

== ENCOUNTER 2022-02-22 01:54 | Inpatient (IN) | payer OTHER, MEDICARE ==
[~2022-02-22] VITALS: Ht 162.6 cm; Wt 87.5 kg
[2022-02-22 02:13] LABS: Hematocrit 36.6 % (33.0-51.0); Hemoglobin 12.2 g/dL (11.5-16.0); Mean Corpuscular HGB 28.6 pg (26.0-34.0); Mean Corpuscular HGB Conc 33.3 g/dL (31.5-36.5); Mean Corpuscular Volume 86 fL (80-100); Mean Platelet Volume 8.7 fL (9.1-12.4); Platelet Count 417 K/mm3 (150-400); RDW Coefficient Variation 14.1 % (11.7-14.2); RDW Standard Deviation 43.8 fL (35.1-46.3); Red Blood Cell Count 4.27 M/mm3 (3.80-5.20); White Blood Cell Count 26.62 K/mm3 (4.00-11.30)
[2022-02-22 02:26] LABS: Albumin, Blood 2.9 g/dL (3.4-5.0); Albumin/Globulin Ratio 0.8 (0.8-1.8); Bilirubin, Total 0.4 mg/dL (0.1-1.0); Bun/Creatinine Ratio 43.3 (12.0-20.0); Calcium, Blood 11.6 mg/dL (8.5-10.1); Creatinine, Blood 1.34 mg/dL (0.40-1.00); Globulin, Blood 3.6 g/dL (2.2-4.0); Total Protein, Blood 6.5 g/dL (6.4-8.2)
[2022-02-22 02:30] LABS: BAND PERCENT MAN 13 % (0-8); BASOPHILS PERCENT MAN 0 % (0-2); EOSINOPHILS PERCENT MAN 0 % (0-6); LYMPHOCYTES ABSOLUTE MAN 1.33 K/mm3 (0.84-5.20); LYMPHOCYTES PERCENT MAN 5 % (21-46); MONOCYTES ABSOLUTE MAN 1.06 K/mm3 (0.16-1.47); MONOCYTES PERCENT MAN 4 % (4-13); NEUTROPHILS ABSOLUTE MAN 24.22 K/mm3 (1.96-9.15); SEG NEUTROPHILS PERCENT MAN 78 % (41-73); TOTAL CELLS COUNTED 100
[2022-02-22 03:45] LABS: Source, Urine Straight Cath
[2022-02-22 03:46] LABS: Bilirubin, Urine Neg (Neg); Blood, Urine 5+ (Neg); Glucose Qualitative, Urine Neg (Neg); Ketones, Urine Neg (Neg); Leukocyte Esterase, Urine 3+ (Neg); Nitrite, Urine Neg (Neg); Protein, Urine 3+ (Neg); Specific Gravity, Urine 1.015 (1.003-1.022); Urobilinogen, Urine NORM (Normal)
[2022-02-22 03:50] LABS: Appearance, Urine Cloudy (Clear); Color, Urine Yellow (P-Yellow)
[2022-02-22 04:04] LABS: Bacteria Many /hpf; Red Blood Cells, Urine 25-50 /hpf (0-2); Squamous Epithelial Cells Few /hpf (Few); White Blood Cells, Urine TNTC /hpf (0-5)
--- NOTE | 2022-02-22 10:36 | NUR ---
0820: PT ARRIVED FROM ED. REPORT PREVIOUSLY RECEIVED FROM FELTON COOPER. PT ORIENTED TO SELF/SITUATION, NOT YEAR. FOLLOWING SIMPLE ONE-STEP COMMANDS. VSS WITH MAP 55-60 ON 8MCG/MIN NOREPINEPHRINE. 0900: BP ARM (LUE) ELEVATED ON PILLOW FOR COMFORT. MAP >55MM/HG WITH CUFF SLIGHTLY ABOVE PHLEBOSTATIC AXIS, WILL CONTINUE TO MONITOR. INCREASED LEVOPHED TO 9MCG/MIN. DISCUSSED PLAN WITH CN AND DR. BLEVINS TO WAIT FOR MD ROUNDS WITH DR. CHAVEZ TO DISCUSS POSSIBLE PICC/CENTRAL LINE PLACEMENT. 1000: POSITION CHANGE, MAP >55MM/HG WITH CUFF AT PHLEBOSTATIC AXIS. AND LEVOPHED INCREASED TO 10MCG/MIN. MAP TO 60MM/HG. PT INTERMITTENTLY SLEEPING BUT AROUSABLE AND COOPERATIVE.
--- NOTE | 2022-02-22 12:08 | NUR ---
1200: DR. CHAVEZ AT BEDSIDE. DISCUSSED PLAN OF CARE. PT TO RECEIVE MAINTENANCE IVF, Q6HR BGL UNTIL EATING WHEN ORDER MAY BE CHANGED TO AC/HS. NO CHANGE TO IV ACCESS AT THIS TIME. MAP >/=55MMhG IS ACCEPTABLE PER MD. DAUGHTER OF PATIENT REQUESTS CONSIDERATION FOR PALLIATIVE CARE/HOSPICE. START WITH CLEAR LIQUID DIET AND ADVANCE TOLERATED.
--- NOTE | 2022-02-22 13:38 | NUR ---
CONTACTED DR. CHAVEZ TO REQUEST ORDERS FOR INSULIN/DIABETIC MANAGEMENT; DIET CHANGES; CODE STATUS UPDATE 1340: REESE FROM PALLIATIVE CARE IN UNIT TO REVIEW PATIENT SITUATION.
--- NOTE | 2022-02-22 18:15 | NUR ---
SHIFT SUMMARY NEURO: CONFUSION IMPROVED, PT VERY INTERACTIVE WITH FAMILY AND FOLLOWING TWO-STEP COMMANDS. ORIENTED TO SELF/SITUATION. DENIES PAIN. CARDIAC: ATRIAL FIBRILLATION NOTED FOR A PERIOD OF APPROXIMATELY 10 MINS IN LATE AFTERNOON. OTHERWISE SR W/ OCCASIONAL UNIFOCAL PVCS. TITRATED LEVOPHED UP TO 10MCG/MIN, NOW TITRATING DOWN AND CURRENTLY AT 6MCG/MIN WITH SIGNIFICANT IMPROVEMENT IN BP. AFEBRILE. CONTINUE MINIMUM OF Q2HR R PIV ASSESSMENT D/T RISK OF EXTRAVASATION WITH LEVOPHED. RESP: TOLERATING MINIMAL SUPPLEMENTAL O2. LUNGS CLEAR/DIMINISHED. NO COUGH THROUGHOUT DAY. GI: TOLERATING FULL LIQUID DIET. NO COVERAGE NEEDED FOR LAST BGL OF 145MG/DL. CAN ADVANCE DIET IN AM. : SIGNIFICANT IMPROVEMENT IN UOP, SEE I/O'S. URINE NO LONGER PURULENT; CLEAR YELLOW. MK: GENERALIZED WEAKNESS PERSISTS. INTEG: PHOTODOCUMENTATION OF BILATERAL ULCERATIONS. SKIN INTACT TO SACRUM, STAGE 1 PRESSURE ULCER WITH NONBLANCHING AREA. FOAM DRESSING APPLIED, PT TURNED Q2HRS TO OFFLOAD. PSYCH: FAMILY MEMBERS PRESENT THROUGHOUT MOST OF DAY, VERY POSITIVE INTERACTIONS. SPENT APPROXIMATELY 30 MIN DISCUSSING THEIR QUESTIONS/CONCERNS VIA CONFERENCE CALL. PLAN FOR TOMORROW HAVING FAMILY MEETING WITH PALLIATIVE CARE TEAM.
--- NOTE | 2022-02-22 20:06 | NUR ---
ASSUMED CARE AT 1900 PT SLEEPING AT SHIFT CHANGE. PT IS AROUSABLE BUT LETHARGIC; SLEEPING WHEN NOT STIMULATED; PT IS ORIENTED X3, NOT TO TIME; SHE IS ABLE TO REQUEST NEEDS BUT HAS NOT USED THE CALL LIGHT. SPO2 >98% ON 2L NC. AFEBRILE. HR 70'S; PT WILL SPONTANIOUSLY GO INTO AFIB AND THEN RETURN TO NSR. SBP 90-120'S; MAP >55, LEVOPHED INFUSING NOW AT 6MCG/MIN; SEE FLOWSHEET FOR TITRATIONS. HERNIA NOTED TO UPPER MIDDLE ABD. HER IN PLACE WITH LIGHT YELLOW OUTPUT WITH SEDAMENT. ULCERS TO BLE NOTED, DRY AND VESNA. NS INFUSING AT 75ML/HR. SEE SHIFT ASSESSMENT FOR FULL ASSESSMENT.
[2022-02-23 03:57] LABS: BASOPHILS PERCENT AUTO 1 % (0-2); EOSINOPHILS ABSOLUTE AUTO 0.33 K/mm3 (0.00-0.68); EOSINOPHILS PERCENT AUTO 2 % (0-6); Hematocrit 33.4 % (33.0-51.0); Hemoglobin 10.9 g/dL (11.5-16.0); IMMATURE GRAN ABSOLUTE AUTO 0.21 K/mm3 (0.00-0.10); IMMATURE GRAN PERCENT AUTO 1 % (0-1); LYMPHOCYTES ABSOLUTE AUTO 1.24 K/mm3 (0.84-5.20); LYMPHOCYTES PERCENT AUTO 6 % (21-46); MONOCYTES ABSOLUTE AUTO 1.19 K/mm3 (0.16-1.47); MONOCYTES PERCENT AUTO 5 % (4-13); Mean Corpuscular HGB 28.4 pg (26.0-34.0); Mean Corpuscular HGB Conc 32.6 g/dL (31.5-36.5); Mean Corpuscular Volume 87 fL (80-100); Mean Platelet Volume 8.8 fL (9.1-12.4); NEUTROPHILS ABSOLUTE AUTO 18.89 K/mm3 (1.96-9.15); NEUTROPHILS PERCENT AUTO 86 % (41-73); Platelet Count 354 K/mm3 (150-400); RDW Coefficient Variation 14.3 % (11.7-14.2); RDW Standard Deviation 45.1 fL (35.1-46.3); Red Blood Cell Count 3.84 M/mm3 (3.80-5.20); White Blood Cell Count 21.96 K/mm3 (4.00-11.30)
[2022-02-23 04:14] LABS: Albumin, Blood 2.6 g/dL (3.4-5.0); Albumin/Globulin Ratio 0.7 (0.8-1.8); Bilirubin, Total 0.2 mg/dL (0.1-1.0); Bun/Creatinine Ratio 38.8 (12.0-20.0); Calcium, Blood 10.8 mg/dL (8.5-10.1); Creatinine, Blood 1.16 mg/dL (0.40-1.00); Globulin, Blood 3.7 g/dL (2.2-4.0); Potassium, Blood 3.9 mmol/L (3.5-5.5); Total Protein, Blood 6.3 g/dL (6.4-8.2)
--- NOTE | 2022-02-23 06:36 | NUR ---
END OF SHIFT SUMMARY NO ACUTE EVENTS OVER NIGHT; PT ABLE TO SLEEP FOR MOST OF THE NIGHT. PT IS ALERT/ORIENTED X3, DOES NOT USE CALL LIGHT. SPO2 >98% ON 2L NC. AFEBRILE. HR 70-90'S; HEART MONITOR SHOWING SIGNS OF ST ELEVATION, EKG DONE AND DID NOT SHOW ST ELEVATION, PT ASYMPTOMATIC. SBP 80-110; LEVOPHED INFUSING AT 3MCG/MIN; SEE FLOWSHEET FOR TITRATION; MAP >55. HER IN PLACE AND DRAINING TO GRAVITY. WILL REPORT TO AM RN WHEN AVAILABLE.
--- NOTE | 2022-02-23 08:00 | NUR ---
INITIAL ASSESSMENT PATIENT ALERT AND ORIENTED X 4, AFEBRILE. PATIENT DENIES PAIN. PATIENT BEDBOUND AT BASELINE. PATIENT HAS TREMORS AT BASELINE. FEET CONTRACTED. PATIENT WEAK BUT ABLE TO MOVE ALL EXTREMITIES. LUNGS DIM THROUGHOUT. PATIENT DECREASED FROM 2 L NC TO RA AND REMAINS SATTING 90% AND GREATER. PATIENT STATES SHE WEARS CPAP AT HS. PATIENT STATES SHE HAS AN OCCASIONAL DRY COUGH AND THAT IT IS NORMAL FOR HER. PATIENT IN SR WITH PACS, HR 80S TO 90S. SBP 1-TEENS TO 130S. INSTRUCTION IS TO KEEP MAPS 55 OR GREATER. ABDOMEN SOFT WITH NORMOACTIVE BOWEL SOUNDS NOTED. HERNIA NOTED TO MID ABD. PATIENT HAS CHRONIC HRE THAT WAS REPLACED YESTERDAY. HER DRAINING YELLOW COLORED URINE. SACRUM RED BUT BLANCHEABLE; MEPILEX IN PLACE. VENOUS ULCERS NOTED TO BLES. SCATTERED BRUISES NOTED. SKIN PALE, DRY, COOL, AND FRAGILE. LEVOPHED INFUSING AT 2 MCG/ MINUTE AND NS TKO. BED LOW, CALL LIGHT IN REACH. WILL CONTINUE TO MONITOR PATIENT FREQUENTLY THROUGHOUT SHIFT.
--- NOTE | 2022-02-23 08:16 | NUR ---
TRIED TO CALL DR. WHITLEY TO LET KNOW THAT IV THAT LEVOPHED WAS INFUSING INTO WAS BAD WHEN NURSE FLUSHED THIS AM. DR. CHAVEZ ANSWERED AND STATED THE NUMBER WAS STILL CONNECTED TO HER PHONE. DR. CHAVEZ STATED SHE WOULD CALL DR. WHITLEY.
--- NOTE | 2022-02-23 10:48 | NUR ---
DR. WHITLEY INFORMED THAT PATIENT CONVERTED FROM SR WITH PACS TO A. FIB. DR Cinthya WHITLEY STATED SHE IS AWARE THAT PATIENT HAS BEEN FLIPPING BACK AND FORTH. NO ORDERS OBTAINED AT THIS TIME.
--- NOTE | 2022-02-23 12:15 | NUR ---
PATIENT HAS TEMP OF 99.8 DEGREES FAHRENHEIT. PATIENT IN A.FIB, HR IN THE LOW 100S. SBP LOW 100S TO 120S. LEVOPHED ON SB. BLOOD SUGAR 178. NO OTHER ACUTE CHANGE TO NOTE ON AT THIS TIME. WILL CONTINUE TO MONITOR.
--- NOTE | 2022-02-23 16:30 | NUR ---
PATIENT HAS TEMP OF 99.1 DEGREES FAHRENHEIT. BLOOD SUGAR 159. HR IN THE LOW 100S. SBP 130S TO 140S. LEVOPHED REMAINS ON SB. NO OTHER ACUTE CHANGES TO NOTE ON AT THIS TIME. WILL CONTINUE TO MONITOR.
--- NOTE | 2022-02-23 19:06 | NUR ---
SHIFT SUMMARY PATIENT ALERT AND ORIENTED X 4. TMAX OF 99.8 DEGREES FAHRENHEIT. PATIENT DENIED PAIN THIS SHIFT. LUNGS REMAINED DIM. PATIENT REMAINED SATTING 90% AND GREATER ON RA. CPAP ORDERED FOR HS IS WHAT PATIENT USES AT HOME. PATIENT SR WITH PACS/ A. FIB. HR 70S TO LOW 100S. SBP 80S TO 140S. LEVOPHED PLACED ON SB AROUND NOON. 25 MG METOPROLOL GIVEN AROUND 1730 AND IF PRESSURE HOLDS THEN DR. WHITLEY STATED PATIENT COULD BE PCU STATUS. PATIENT HAD LARGE, HARD BM THIS SHIFT. PATIENT REMAINED ON FULL LIQUID DIET. 1100 MLS OF YELLOW COLORED URINE DRAINED FROM HER. R FA IV INFILTRATED THIS AM AT FIRST ASSESSMENT; REGITINE ADMINISTERED LEVOPHED INFUSING THROUGH THAT IV. NO OTHER CHANGES TO SKIN NOTED. PATIENT REPOSITIONED Q2H. NS INFUSING TKO. BLOOD SUGARS RANGED FROM 130S TO 170S. PATIENT'S DAUGHTER IN SEVERAL TIMES TODAY. REPORT HAS BEEN GIVEN TO ASSUMING PRIVATE DETECTIVE NURSE.
--- NOTE | 2022-02-23 19:14 | NUR ---
Lengthy conversation with daughter about their mothers needs and her trajectory of care needs. They had several questions about levels of care. they were both sowing significant caregiver stresss. At the end they settled more on hospice care and quality. They will discuss with rest of family. They one daughter in grief recently lost her daughter inlaw. Will follow closely for support.
--- NOTE | 2022-02-23 22:37 | NUR ---
ASSUMED CARE AT 1900 PT LAYING IN BED WATCHING TV DURING SHIFT CHANGE. PT IS A/O X4 AND COMMUNICATING NEEDS. SPO2 >95% ON RA; PLACED ON CPAP WHILE SLEEPING. HR 70-80'S. SBP 110-130'S; LEVOPHED OFF. HER IN PLACE AND DRAINING TO GRAVITY. SEE SHIFT ASSESSMENT FOR FULL ASSESSMENT. PT BP HOLDING SINCE METOPROLOL GIVEN AT 1730. PT STATUS CHANGED TO PCU.
[2022-02-24 03:35] LABS: Hematocrit 31.8 % (33.0-51.0); Hemoglobin 10.5 g/dL (11.5-16.0); Mean Corpuscular HGB 28.5 pg (26.0-34.0); Mean Corpuscular Volume 86 fL (80-100); Mean Platelet Volume 8.9 fL (9.1-12.4); Platelet Count 239 K/mm3 (150-400); RDW Coefficient Variation 14.3 % (11.7-14.2); RDW Standard Deviation 44.9 fL (35.1-46.3); Red Blood Cell Count 3.68 M/mm3 (3.80-5.20); White Blood Cell Count 7.93 K/mm3 (4.00-11.30)
[2022-02-24 03:57] LABS: Albumin, Blood 2.4 g/dL (3.4-5.0); Anion Gap 5 mmol/L (6-16); Blood Urea Nitrogen 30 mg/dL (8-24); Bun/Creatinine Ratio 30.4 (12.0-20.0); CO2, Blood 25 mmol/L (21-32); Calcium, Blood 10.2 mg/dL (8.5-10.1); Chloride, Blood 108 mmol/L (98-108); Creatinine, Blood 0.99 mg/dL (0.40-1.00); Glomerular Filtration Rate 53 (60-); Glucose, Blood 132 mg/dL (70-99); Phosphorus, Blood 2.6 mg/dL (2.5-4.9); Potassium, Blood 4.1 mmol/L (3.5-5.5); Sodium, Blood 138 mmol/L (136-145)
--- NOTE | 2022-02-24 06:20 | NUR ---
END OF SHIFT SUMMARY NO ACUTE EVENTS OVERNIGHT. PT SLEPT WITH CPAP AND TOLERATED WELL. PT IS A/O X4 AND ABLE TO COMMUNICATE NEEDS. AFEBRILE. HR 70-80'S; WOULD SWITCH FROM AFIB TO FIRST DEGREE HB. SBP 115-130. HER IN PLACE WITH 2L OUT. SACRAL WOUND RESOLVED; PREVENTATIVE MEPILEX IN PLACE. WILL REPORT TO AM RN WHEN AVAILABLE.
--- NOTE | 2022-02-24 09:00 | NUR ---
ASSUMED CARE REPORT FROM NADEEN YA AT 0700. PT RESTING IN BED. WAKES c VERBAL STIMULI. REQUESTS MORE SLEEP THIS AM. PROVIDED. PT STATUS CHANGED TO MED NO TELE. A&OX 4. FOLLOW COMMANDS. USES CALL LIGHT APPROPRIATELY. LUNGS CLEAR. PT P/W/D. SINUE ARRYTHMIA ON MONITOR. BP STABLE. PT HAS HX OF CHRONIC HER, PATENT, DRAINING TO GRAVITY. BEDBOUND AT BASELINE. ABLE TO ASSIST c ROLLING. VENOUS ULCERS TO BLE. PHOTOS IN CHART. PIV X 2. WILL CONTINUE TO MONITOR.
--- NOTE | 2022-02-24 17:23 | NUR ---
SHIFT SUMMARY NO ACUTE CHANGES THIS SHIFT. PT REMAINS A&OX 4. ABLE MAKE NEEDS KNOWN. SLEPT MOST OF SHIFT OTHER THAN MEALS. BP REMAINED STABLE p METOPROLOL. HER PATENT, DRAINED 1500ML CLEAR YELLOW URINE TO GRAVITY. MEDICAL ROOM ASSIGNMENT. WILL CONTINUE TO MONITOR UNTIL REPORT GIVEN AND PT TRANSFERRED.
--- NOTE | 2022-02-24 18:02 | NUR ---
Brief theraputic visit with family. They are pondering hospice updated physician
--- NOTE | 2022-02-24 18:37 | NUR ---
SHIFT SUMMARY PATIENT TRANSFERRED FROM ICU AT 1815. PATIENT SETTLED INTO ROOM. PATIENT DENIES PAIN, NAUSEA, AND SHORTNESS OF BREATH. HER IS PATENT AND DRAINING TO GRAVITY. PATIENT IS A LIFT FOR TRANSFERS. PATIENT IS BEDBOUND AT BASELINE. PATIENT UPDATED HER FAMILY. PATIENT IS EATING AND DRINKING WELL. PATIET IS PLEASANT AND COOPERATIVE WITH CARE.
--- NOTE | 2022-02-25 03:23 | NUR ---
SHIFT SUMMARY NO ACUTE CHANGES OVERNIGHT. VSS. PT ON ROOMAIR,SATS WNL. PT DENIES PAIN, NAUSEA, VOMITING, SOB, N/T. HER REMAIN PATENT, OFF FLOOR, AND DRAINING. PT TOLERATES PO INTAKE DENIES N/V. REG DIET. AOX3. PLEASANT AND COOPERATIVE. BEDBOUND AT BASELINE AND JULIÁN LIFT NEEDED. ABLE TO HELP IN REPOSITIONING. ATTENDS IN PLACE. IV ABX GIVEN, KVO AT THIS TIME. PT WILL NEED POWERGLIDE FOR GROUP HOME ABX UPON DISCHARGE. WILL ADDRESS THIS TO DAY SHIFT TO REQUEST PLACEMENT. CALL LIGHT WITHIN REACH. WILL CONTINUE TO MONITOR. REPORT TO ONCOMING NURSE.
[2022-02-25] MEDS ORDERED: MERREM IV (14:10)
[2022-02-25 15:34] LABS: Influenza A, PCR NEGATIVE (NEGATIVE); Influenza B, PCR NEGATIVE (NEGATIVE); Resp Syncytial Virus, PCR NEGATIVE (NEGATIVE); SARS-Cov-2 (COVID-19) PCR, MMC NEGATIVE (NEGATIVE)
--- NOTE | 2022-02-25 17:30 | NUR ---
DISCHARGE PATIENT TRANSPORTED VIA GURNEY BY [facility] [place] TO [facility]. DISCHARGE INSTRUCTIONS FAXED TO [facility]. MEDICATIONS FAXED TO [facility]. BELONGINGS SENT WITH PATIENT. POWERGLIDE PLACED FOR ABX TREATMENT. IV IS PATENT AND FLUSHING AT TIME OF DISCHARGE. HER PATENT AND DRAINING AT TIME OF DISCHARGE. REPORT CALLED TO FELTON MARSH AT [facility].
[2022-08-02] MEDS ORDERED: SENNA LAXATIVE8.6 MG PO (11:36)
[2022-08-02] MEDS ORDERED: JUVEN PACKET1 EAC3 PO (11:37)
[2022-08-02] MEDS ORDERED: VITAMIN D5000 UNIT PO (11:37)
[2022-08-02] MEDS ORDERED: ACET325 PO (11:39)
== END 2022-02-25 17:19 | DRG 698 ==
LOC: ER 01:54 → ICUE 08:02 → MEDS 08:02 → PCU 08:02 → ICUE 08:06 → MEDS 02-24 18:14
PROVIDERS: Internal Medicine; Student in an Organized Health Care Education/Training Program; ADMIT Internal Medicine
PROC: 3E033XZ Introduction of Vasopressor into Peripheral Vein, Percutaneous Approach (ICD-10-PCS; principal; 2022-02-22)
PROC: 3E03329 Introduction of Other Anti-infective into Peripheral Vein, Percutaneous Approach (ICD-10-PCS; 2022-02-22)
DX: T83.511A Infection and inflammatory reaction due to indwelling urethral catheter, initial encounter (principal); R65.21 Severe sepsis with septic shock; G92.8 Other toxic encephalopathy; A41.51 Sepsis due to Escherichia coli [E. coli]; N12 Tubulo-interstitial nephritis, not specified as acute or chronic; I13.0 Hypertensive heart and chronic kidney disease with heart failure and stage 1 through stage 4 chronic kidney disease, or unspecified chronic kidney disease; N17.9 Acute kidney failure, unspecified; J90 Pleural effusion, not elsewhere classified; J98.11 Atelectasis; L97.919 Non-pressure chronic ulcer of unspecified part of right lower leg with unspecified severity; L97.929 Non-pressure chronic ulcer of unspecified part of left lower leg with unspecified severity; I48.20 Chronic atrial fibrillation, unspecified; J44.9 Chronic obstructive pulmonary disease, unspecified; Z66 Do not resuscitate; Z51.5 Encounter for palliative care; Z74.01 Bed confinement status; E66.9 Obesity, unspecified; G47.33 Obstructive sleep apnea (adult) (pediatric); I48.0 Paroxysmal atrial fibrillation; E11.622 Type 2 diabetes mellitus with other skin ulcer; K59.00 Constipation, unspecified; I50.9 Heart failure, unspecified; M10.9 Gout, unspecified; N18.30 Chronic kidney disease, stage 3 unspecified; E11.22 Type 2 diabetes mellitus with diabetic chronic kidney disease; F03.90 Unspecified dementia, unspecified severity, without behavioral disturbance, psychotic disturbance, mood disturbance, and anxiety; E03.9 Hypothyroidism, unspecified; L89.151 Pressure ulcer of sacral region, stage 1; R09.02 Hypoxemia; E86.0 Dehydration; E83.52 Hypercalcemia; Z90.710 Acquired absence of both cervix and uterus; Z98.890 Other specified postprocedural states; Z87.891 Personal history of nicotine dependence; Z88.1 Allergy status to other antibiotic agents; Z88.8 Allergy status to other drugs, medicaments and biological substances; Z79.02 Long term (current) use of antithrombotics/antiplatelets; Z79.899 Other long term (current) drug therapy; Y84.6 Urinary catheterization as the cause of abnormal reaction of the patient, or of later complication, without mention of misadventure at the time of the procedure
CPT/HCPCS: 0241U; 36415; 51702; 74177; 80053; 80069; 81001; 82947; 83605; 83880; 85025; 85027; 87040; 87077; 87086; 87186; 93005; 93010; 94640; 94660; 94664; 94760; 94762; 96365; 96375; 97110; 97166; 99285-25; A9270; G0463; J0696; J1650; J1815; J2185; J2760; J7030; J7050; J7060; Q9967

== ENCOUNTER 2022-03-12 03:02 | Day surgery (SDC) | payer OTHER ==
[~2022-03-12 03:02] MED LIST changes: +MERREM IV
== END 2022-03-12 23:23 | disposition home or self-care (01) ==
LOC: WOUND 03:02
DX: E11.622 Type 2 diabetes mellitus with other skin ulcer (principal); L97.812 Non-pressure chronic ulcer of other part of right lower leg with fat layer exposed; I87.2 Venous insufficiency (chronic) (peripheral); E11.51 Type 2 diabetes mellitus with diabetic peripheral angiopathy without gangrene; R77.0 Abnormality of albumin; J45.909 Unspecified asthma, uncomplicated; G47.30 Sleep apnea, unspecified; I12.9 Hypertensive chronic kidney disease with stage 1 through stage 4 chronic kidney disease, or unspecified chronic kidney disease; N18.9 Chronic kidney disease, unspecified; E11.22 Type 2 diabetes mellitus with diabetic chronic kidney disease; E66.9 Obesity, unspecified; Z68.30 Body mass index [BMI] 30.0-30.9, adult; Z87.891 Personal history of nicotine dependence
CPT/HCPCS: A9270; G0463

== ENCOUNTER → 2022-03-24 | Outpatient (CLI) | payer OTHER ==
[~2022-03-24] MED LIST changes: +JUVEN PACKET1 EAC3 PO; +SENNA LAXATIVE8.6 MG PO
[2022-03-24 15:55] LABS: Source, Urine Voided
[2022-03-24 17:30] LABS: Appearance, Urine Cloudy (Clear); Bilirubin, Urine Neg (Neg); Blood, Urine 3+ (Neg); Color, Urine Yellow (P-Yellow); Glucose Qualitative, Urine Neg (Neg); Ketones, Urine Neg (Neg); Leukocyte Esterase, Urine 3+ (Neg); Nitrite, Urine Pos (Neg); Protein, Urine 3+ (Neg); Specific Gravity, Urine 1.015 (1.003-1.022); Urobilinogen, Urine NORM (Normal)
[2022-03-24 17:31] LABS: BASOPHILS ABSOLUTE AUTO 0.08 K/mm3 (0.00-0.23); BASOPHILS PERCENT AUTO 1 % (0-2); EOSINOPHILS ABSOLUTE AUTO 0.57 K/mm3 (0.00-0.68); EOSINOPHILS PERCENT AUTO 8 % (0-6); Hematocrit 36.8 % (33.0-51.0); Hemoglobin 11.9 g/dL (11.5-16.0); IMMATURE GRAN ABSOLUTE AUTO 0.04 K/mm3 (0.00-0.10); IMMATURE GRAN PERCENT AUTO 1 % (0-1); LYMPHOCYTES ABSOLUTE AUTO 1.37 K/mm3 (0.84-5.20); LYMPHOCYTES PERCENT AUTO 19 % (21-46); MONOCYTES PERCENT AUTO 10 % (4-13); Mean Corpuscular HGB 28.1 pg (26.0-34.0); Mean Corpuscular HGB Conc 32.3 g/dL (31.5-36.5); Mean Corpuscular Volume 87 fL (80-100); Mean Platelet Volume 9.3 fL (9.1-12.4); NEUTROPHILS PERCENT AUTO 61 % (41-73); Platelet Count 304 K/mm3 (150-400); RDW Coefficient Variation 14.1 % (11.7-14.2); RDW Standard Deviation 45.1 fL (35.1-46.3); Red Blood Cell Count 4.23 M/mm3 (3.80-5.20); White Blood Cell Count 7.16 K/mm3 (4.00-11.30)
[2022-03-24 17:39] LABS: Albumin, Blood 3.2 g/dL (3.4-5.0); Albumin/Globulin Ratio 0.8 (0.8-1.8); Bilirubin, Total 0.2 mg/dL (0.1-1.0); Bun/Creatinine Ratio 49.3 (12.0-20.0); Calcium, Blood 12.5 mg/dL (8.5-10.1); Creatinine, Blood 1.4 mg/dL (0.40-1.00); Potassium, Blood 4.7 mmol/L (3.5-5.5); Total Protein, Blood 7.2 g/dL (6.4-8.2)
[2022-03-24 18:13] LABS: White Blood Cells, Urine TNTC /hpf (0-5)
[2022-03-24 18:14] LABS: Bacteria Mod /hpf; Squamous Epithelial Cells Rare /hpf (Few)
== END | disposition home or self-care (01) ==
LOC: EDSTATUS 15:29 → LAB RH 15:53
PROVIDERS: Internal Medicine
DX: A41.9 Sepsis, unspecified organism (principal); N39.0 Urinary tract infection, site not specified
CPT/HCPCS: 80053; 81001; 85025; 87077; 87086; 87186

== ENCOUNTER 2022-03-26 00:35 | Day surgery (SDC) | payer OTHER ==
[~2022-03-26 00:35] MED LIST changes: -JUVEN PACKET1 EAC3 PO; -SENNA LAXATIVE8.6 MG PO
== END 2022-03-26 22:57 | disposition home or self-care (01) ==
LOC: WOUND 00:35
DX: Z09 Encounter for follow-up examination after completed treatment for conditions other than malignant neoplasm (principal); E11.622 Type 2 diabetes mellitus with other skin ulcer; L97.922 Non-pressure chronic ulcer of unspecified part of left lower leg with fat layer exposed; I87.2 Venous insufficiency (chronic) (peripheral); E11.51 Type 2 diabetes mellitus with diabetic peripheral angiopathy without gangrene; R77.0 Abnormality of albumin
CPT/HCPCS: G0463

== ENCOUNTER → 2022-04-16 | Outpatient (CLI) | payer OTHER ==
[~2022-04-16] MED LIST changes: +JUVEN PACKET1 EAC3 PO; +SENNA LAXATIVE8.6 MG PO
[2022-04-16 17:35] LABS: Appearance, Urine Hazy (Clear); Bilirubin, Urine Neg (Neg); Blood, Urine 2+ (Neg); Glucose Qualitative, Urine Neg (Neg); Ketones, Urine Neg (Neg); Leukocyte Esterase, Urine 3+ (Neg); Nitrite, Urine Pos (Neg); Protein, Urine 2+ (Neg); Specific Gravity, Urine 1.015 (1.003-1.022); Urobilinogen, Urine NORM (Normal)
[2022-04-16 18:09] LABS: Color, Urine Pale Yellow (P-Yellow)
[2022-04-16 18:10] LABS: White Blood Cells, Urine TNTC /hpf (0-5)
[2022-04-16 18:11] LABS: Bacteria Many /hpf; Red Blood Cells, Urine 0-2 /hpf (0-2); Squamous Epithelial Cells Rare /hpf (Few)
== END | disposition home or self-care (01) ==
LOC: EDSTATUS 15:30 → LAB RH 15:55
PROVIDERS: Internal Medicine
DX: N39.0 Urinary tract infection, site not specified (principal)
CPT/HCPCS: 81001; 87077; 87086; 87186

== ENCOUNTER → 2022-04-18 | Outpatient (CLI) | payer OTHER ==
[2022-04-18 21:37] LABS: Bun/Creatinine Ratio 58.5 (12.0-20.0); Calcium, Blood 10.6 mg/dL (8.5-10.1); Creatinine, Blood 1.18 mg/dL (0.40-1.00); Potassium, Blood 4.7 mmol/L (3.5-5.5)
== END | disposition home or self-care (01) ==
LOC: EDSTATUS 15:31 → LAB RH 21:13
PROVIDERS: Internal Medicine
DX: I50.9 Heart failure, unspecified (principal)
CPT/HCPCS: 80048

== ENCOUNTER → 2022-04-19 | Outpatient (CLI) | payer OTHER ==
[2022-04-19 09:49] LABS: Bun/Creatinine Ratio 50.4 (12.0-20.0); Calcium, Blood 11.1 mg/dL (8.5-10.1); Creatinine, Blood 1.35 mg/dL (0.40-1.00); Potassium, Blood 4.5 mmol/L (3.5-5.5)
== END | disposition home or self-care (01) ==
LOC: LAB RH 08:55 → EDSTATUS 15:33
PROVIDERS: Internal Medicine
DX: I50.9 Heart failure, unspecified (principal)
CPT/HCPCS: 80048

== ENCOUNTER → 2022-04-21 | Outpatient (CLI) | payer OTHER ==
[~2022-04-21] MED LIST changes: -JUVEN PACKET1 EAC3 PO; -SENNA LAXATIVE8.6 MG PO
[2022-04-21 07:37] LABS: Calcium, Blood 11.1 mg/dL (8.5-10.1); Creatinine, Blood 1.07 mg/dL (0.40-1.00); Potassium, Blood 4.7 mmol/L (3.5-5.5)
== END | disposition home or self-care (01) ==
LOC: LAB RH 05:00 → EDSTATUS 15:34
PROVIDERS: Internal Medicine
DX: E11.9 Type 2 diabetes mellitus without complications (principal); M62.59 Muscle wasting and atrophy, not elsewhere classified, multiple sites; D64.9 Anemia, unspecified; N39.0 Urinary tract infection, site not specified
CPT/HCPCS: 80048

== ENCOUNTER → 2022-05-12 | Outpatient (CLI) | payer OTHER ==
[2022-05-13 14:53] LABS: Appearance, Urine Hazy (Clear); Bilirubin, Urine Neg (Neg); Blood, Urine 2+ (Neg); Glucose Qualitative, Urine Neg (Neg); Ketones, Urine Neg (Neg); Leukocyte Esterase, Urine 3+ (Neg); Nitrite, Urine Pos (Neg); Protein, Urine 2+ (Neg); Specific Gravity, Urine 1.015 (1.003-1.022); Urobilinogen, Urine NORM (Normal)
[2022-05-13 15:06] LABS: Color, Urine Pale Yellow (P-Yellow)
[2022-05-13 15:07] LABS: Bacteria Many /hpf; Granular Casts 0-2 /lpf (0); Hyaline Casts 0-2 /lpf (0-2); Squamous Epithelial Cells Few /hpf (Few); White Blood Cells, Urine 25-50 /hpf (0-5)
== END | disposition home or self-care (01) ==
LOC: LAB SHORT 13:27 → LAB RH 13:27 → LAB SHORT 05-13 13:27 → EDSTATUS 05-14 14:03
PROVIDERS: Internal Medicine
DX: N39.0 Urinary tract infection, site not specified (principal)
CPT/HCPCS: 81001; 87077; 87086; 87147; 87186

== ENCOUNTER → 2022-06-17 | Outpatient (CLI) | payer OTHER ==
[~2022-06-17] MED LIST changes: +JUVEN PACKET1 EAC3 PO; +SENNA LAXATIVE8.6 MG PO
[2022-06-17 20:43] LABS: Source, Urine Foley catheter
[2022-06-17 20:50] LABS: Appearance, Urine Cloudy (Clear); Bilirubin, Urine Neg (Neg); Blood, Urine 3+ (Neg); Color, Urine Yellow (P-Yellow); Glucose Qualitative, Urine Neg (Neg); Ketones, Urine Neg (Neg); Leukocyte Esterase, Urine 3+ (Neg); Nitrite, Urine Neg (Neg); Protein, Urine 3+ (Neg); Specific Gravity, Urine 1.015 (1.003-1.022); Urobilinogen, Urine NORM (Normal)
[2022-06-17 21:02] LABS: Bacteria Mod /hpf; Granular Casts 0-2 /lpf (0); Hyaline Casts 0-2 /lpf (0-2); Red Blood Cells, Urine TNTC /hpf (0-2); Squamous Epithelial Cells Few /hpf (Few); WBC Cast 0-2 /lpf (0); White Blood Cells, Urine TNTC /hpf (0-5)
== END | disposition home or self-care (01) ==
LOC: EDSTATUS 12:27 → LAB RH 19:20
PROVIDERS: Internal Medicine
DX: N39.0 Urinary tract infection, site not specified (principal)
CPT/HCPCS: 81001; 87077; 87086; 87186

== ENCOUNTER → 2022-08-16 | Outpatient (CLI) | payer OTHER ==
[2022-08-16 05:57] LABS: Hematocrit 37.4 % (33.0-51.0); Hemoglobin 12.3 g/dL (11.5-16.0); Mean Corpuscular HGB 29.1 pg (26.0-34.0); Mean Corpuscular HGB Conc 32.9 g/dL (31.5-36.5); Mean Corpuscular Volume 88 fL (80-100); Mean Platelet Volume 9.5 fL (9.1-12.4); Platelet Count 246 K/mm3 (150-400); RDW Coefficient Variation 12.8 % (11.7-14.2); RDW Standard Deviation 41.1 fL (35.1-46.3); Red Blood Cell Count 4.23 M/mm3 (3.80-5.20); White Blood Cell Count 7.46 K/mm3 (4.00-11.30)
[2022-08-16 06:22] LABS: Bun/Creatinine Ratio 52.9 (12.0-20.0); Calcium, Blood 10.3 mg/dL (8.5-10.1); Creatinine, Blood 1.19 mg/dL (0.40-1.00); Potassium, Blood 5.2 mmol/L (3.5-5.5)
== END ==
LOC: LAB RH 05:50 → EDSTATUS 12:01
PROVIDERS: Internal Medicine
DX: D64.9 Anemia, unspecified (principal)
CPT/HCPCS: 80048; 83036; 85027

== ENCOUNTER 2022-08-29 02:26 | Day surgery (SDC) | payer OTHER | END 2022-08-29 23:59 | disposition home or self-care (01) | LOC: WOUND 02:26 | DX: E11.622 Type 2 diabetes mellitus with other skin ulcer (principal); L97.211 Non-pressure chronic ulcer of right calf limited to breakdown of skin; E11.51 Type 2 diabetes mellitus with diabetic peripheral angiopathy without gangrene; I70.203 Unspecified atherosclerosis of native arteries of extremities, bilateral legs; E11.65 Type 2 diabetes mellitus with hyperglycemia; Z88.5 Allergy status to narcotic agent; E11.22 Type 2 diabetes mellitus with diabetic chronic kidney disease; N18.9 Chronic kidney disease, unspecified; E03.9 Hypothyroidism, unspecified; I12.9 Hypertensive chronic kidney disease with stage 1 through stage 4 chronic kidney disease, or unspecified chronic kidney disease; M10.9 Gout, unspecified; E78.5 Hyperlipidemia, unspecified; F17.210 Nicotine dependence, cigarettes, uncomplicated; E66.9 Obesity, unspecified; Z68.33 Body mass index [BMI] 33.0-33.9, adult | CPT/HCPCS: A9270; G0463 ==

== ENCOUNTER → 2022-10-10 | Outpatient (CLI) | payer OTHER | END | disposition home or self-care (01) | LOC: EDSTATUS 08:47 → LAB RH 20:10 | DX: N39.0 Urinary tract infection, site not specified (principal) | CPT/HCPCS: 87077; 87086; 87186 ==

== ENCOUNTER 2023-11-06 15:05 | Emergency (ER) | payer OTHER ==
[~2023-11-06] VITALS: Ht 165.1 cm; Wt 88.5 kg
[2023-11-06 16:16] LABS: BASOPHILS ABSOLUTE AUTO 0.03 K/mm3 (0.00-0.23); BASOPHILS PERCENT AUTO 0 % (0-2); EOSINOPHILS ABSOLUTE AUTO 0.01 K/mm3 (0.00-0.68); EOSINOPHILS PERCENT AUTO 0 % (0-6); Hematocrit 39.5 % (33.0-51.0); Hemoglobin 13.2 g/dL (11.5-16.0); IMMATURE GRAN ABSOLUTE AUTO 0.16 K/mm3 (0.00-0.10); IMMATURE GRAN PERCENT AUTO 2 % (0-1); LYMPHOCYTES ABSOLUTE AUTO 1.21 K/mm3 (0.84-5.20); LYMPHOCYTES PERCENT AUTO 11 % (21-46); MONOCYTES ABSOLUTE AUTO 0.31 K/mm3 (0.16-1.47); MONOCYTES PERCENT AUTO 3 % (4-13); Mean Corpuscular HGB Conc 33.4 g/dL (31.5-36.5); Mean Corpuscular Volume 84 fL (80-100); Mean Platelet Volume 9.6 fL (9.1-12.4); NEUTROPHILS ABSOLUTE AUTO 8.89 K/mm3 (1.96-9.15); NEUTROPHILS PERCENT AUTO 84 % (41-73); Platelet Count 365 K/mm3 (150-400); RDW Coefficient Variation 14.5 % (11.7-14.2); RDW Standard Deviation 43.3 fL (35.1-46.3); Red Blood Cell Count 4.72 M/mm3 (3.80-5.20); White Blood Cell Count 10.61 K/mm3 (4.00-11.30)
[2023-11-06 16:28] LABS: Albumin, Blood 3.5 g/dL (3.4-5.0); Albumin/Globulin Ratio 0.9 (0.8-1.8); Bilirubin, Total 0.4 mg/dL (0.1-1.0); Bun/Creatinine Ratio 26.5 (12.0-20.0); Calcium, Blood 12.4 mg/dL (8.5-10.1); Creatinine, Blood 1.81 mg/dL (0.40-1.00); Globulin, Blood 3.9 g/dL (2.2-4.0); Potassium, Blood 4.7 mmol/L (3.5-5.5); Total Protein, Blood 7.4 g/dL (6.4-8.2)
[2023-11-06 18:03] LABS: Source, Urine Foley catheter
[2023-11-06 18:08] LABS: Appearance, Urine Cloudy (Clear); Bilirubin, Urine Neg (Neg); Blood, Urine 5+ (Neg); Color, Urine Yellow (P-Yellow); Glucose Qualitative, Urine 1+ (Neg); Ketones, Urine Neg (Neg); Leukocyte Esterase, Urine 2+ (Neg); Nitrite, Urine Neg (Neg); Protein, Urine 3+ (Neg); Urobilinogen, Urine NORM (Normal)
[2023-11-06 18:15] LABS: Red Blood Cells, Urine TNTC /hpf (0-2)
[2023-11-06 18:16] LABS: Bacteria Few /hpf; Squamous Epithelial Cells Rare /hpf (Few)
[2023-11-06 18:18] LABS: Adenovirus Not Detected (NOT DETECT); Coronavirus 229E Not Detected (NOT DETECT); Coronavirus HKU1 Not Detected (NOT DETECT); Coronavirus NL63 Not Detected (NOT DETECT); Parainfluenza Virus 1 Detected (NOT DETECT)
[2023-11-06 18:19] LABS: Bordetella pertussis Not Detected (NOT DETECT); Chlamydophila pneumoniae Not Detected (NOT DETECT); Coronavirus OC43 Not Detected (NOT DETECT); Human Metapneumovirus Not Detected (NOT DETECT); Human Rhinovirus/Enterovirus Not Detected (NOT DETECT); Influenza A/2009-H1 Not Detected (NOT DETECT); Influenza A/H1 Not Detected (NOT DETECT); Influenza A/H3 Not Detected (NOT DETECT); Influenza B Not Detected (NOT DETECT); Mycoplasma pneumoniae Not Detected (NOT DETECT); Parainfluenza Virus 2 Not Detected (NOT DETECT); Parainfluenza Virus 3 Not Detected (NOT DETECT); Parainfluenza Virus 4 Not Detected (NOT DETECT); Respiratory Syncytial Virus Not Detected (NOT DETECT); SARS-Cov-2 (COVID-19), BioFire Not Detected (NOT DETECT)
[2023-11-06 19:55] VITALS: BP 111/42
== END 2023-11-06 21:19 | disposition home or self-care (01) ==
LOC: ER 15:05
PROVIDERS: Emergency Medicine; Student in an Organized Health Care Education/Training Program
DX: N39.0 Urinary tract infection, site not specified (principal); B96.20 Unspecified Escherichia coli [E. coli] as the cause of diseases classified elsewhere; Z20.822 Contact with and (suspected) exposure to COVID-19; F03.90 Unspecified dementia, unspecified severity, without behavioral disturbance, psychotic disturbance, mood disturbance, and anxiety; I12.9 Hypertensive chronic kidney disease with stage 1 through stage 4 chronic kidney disease, or unspecified chronic kidney disease; N18.30 Chronic kidney disease, stage 3 unspecified; J44.9 Chronic obstructive pulmonary disease, unspecified; M19.90 Unspecified osteoarthritis, unspecified site; M10.9 Gout, unspecified; G47.30 Sleep apnea, unspecified; E03.9 Hypothyroidism, unspecified; Z87.440 Personal history of urinary (tract) infections; Z96.0 Presence of urogenital implants; Z87.891 Personal history of nicotine dependence; Z79.02 Long term (current) use of antithrombotics/antiplatelets; Z79.51 Long term (current) use of inhaled steroids; Z79.899 Other long term (current) drug therapy; Z88.1 Allergy status to other antibiotic agents; Z88.8 Allergy status to other drugs, medicaments and biological substances
CPT/HCPCS: 0202U; 80053; 81001; 84443; 85025; 99285; A9270

== ENCOUNTER 2024-05-03 09:32 | Inpatient (IN) | payer OTHER ==
[2024-05-03] VITALS (12 sets, daily range): BP systolic 137–198; BP diastolic 54–83
[~2024-05-03] VITALS: Ht 165.1 cm; Wt 93.4 kg
[2024-05-03 09:59] LABS: BASOPHILS ABSOLUTE AUTO 0.11 K/mm3 (0.00-0.23); BASOPHILS PERCENT AUTO 1 % (0-2); EOSINOPHILS ABSOLUTE AUTO 0.14 K/mm3 (0.00-0.68); EOSINOPHILS PERCENT AUTO 2 % (0-6); Hematocrit 40.9 % (33.0-51.0); Hemoglobin 12.9 g/dL (11.5-16.0); IMMATURE GRAN ABSOLUTE AUTO 0.08 K/mm3 (0.00-0.10); IMMATURE GRAN PERCENT AUTO 1 % (0-1); LYMPHOCYTES ABSOLUTE AUTO 1.39 K/mm3 (0.84-5.20); LYMPHOCYTES PERCENT AUTO 15 % (21-46); MONOCYTES ABSOLUTE AUTO 0.33 K/mm3 (0.16-1.47); MONOCYTES PERCENT AUTO 4 % (4-13); Mean Corpuscular HGB 27.4 pg (26.0-34.0); Mean Corpuscular HGB Conc 31.5 g/dL (31.5-36.5); Mean Corpuscular Volume 87 fL (80-100); Mean Platelet Volume 8.7 fL (9.1-12.4); NEUTROPHILS ABSOLUTE AUTO 7.44 K/mm3 (1.96-9.15); NEUTROPHILS PERCENT AUTO 78 % (41-73); Platelet Count 269 K/mm3 (150-400); RDW Coefficient Variation 14.9 % (11.7-14.2); RDW Standard Deviation 46.9 fL (35.1-46.3); White Blood Cell Count 9.49 K/mm3 (4.00-11.30)
[2024-05-03 10:10] LABS: Source, Urine Foley catheter
[2024-05-03 10:16] LABS: Appearance, Urine Hazy (Clear); Bilirubin, Urine Neg (Neg); Blood, Urine 2+ (Neg); Color, Urine Yellow (P-Yellow); Glucose Qualitative, Urine 1+ (Neg); Ketones, Urine Neg (Neg); Leukocyte Esterase, Urine 3+ (Neg); Nitrite, Urine Neg (Neg); Protein, Urine 3+ (Neg); Urobilinogen, Urine NORM (Normal)
[2024-05-03 10:18] LABS: Albumin, Blood 3.6 g/dL (3.4-5.0); Bilirubin, Total 0.4 mg/dL (0.1-1.0); Bun/Creatinine Ratio 32.3 (12.0-20.0); Calcium, Blood 10.3 mg/dL (8.5-10.1); Creatinine, Blood 1.67 mg/dL (0.40-1.00); Globulin, Blood 3.6 g/dL (2.2-4.0); Magnesium, Blood 1.9 mg/dL (1.6-2.4); Potassium, Blood 5.1 mmol/L (3.5-5.5); Total Protein, Blood 7.2 g/dL (6.4-8.2)
[2024-05-03 10:23] LABS: Bacteria Few /hpf; Squamous Epithelial Cells Rare /hpf (Few); White Blood Cells, Urine TNTC /hpf (0-5)
[2024-05-03] MEDS ORDERED: Estrace Vagin42.5 GM PV (11:04)
[2024-05-03] MEDS ORDERED: ATOR40TA PO (11:04)
[2024-05-03] MEDS ORDERED: LOSA25 PO (11:05)
[2024-05-03] MEDS ORDERED: GLIP5 (11:05)
[2024-05-03] MEDS ORDERED: MIRALAX17 GM PO (11:06)
[2024-05-03] MEDS ORDERED: METO50 PO (11:06)
[2024-05-03] MEDS ORDERED: NITR.4SL SL (11:07)
[2024-05-03] MEDS ORDERED: TRELEGY ELLIPT1 EACH IH (11:08)
[2024-05-03] MEDS ORDERED: Meropenem 1,000 MG in NS 100 ML IV ONE (11:30)
[2024-05-03] MEDS ORDERED: Aspirin 325 MG Tab PO ONE (11:40)
[2024-05-03] MEDS ORDERED: Lactated Ringer's 1,000 ML IV SCH ×2 (13:00→14:00)
[2024-05-03] MEDS ORDERED: Ondansetron HCl 2 MG / ML 2ML Vial IV PRN (13:15)
[2024-05-03 13:30] LABS: Anti-Xa UFH, PHA Monitoring <0.10 IU/mL; International Normalized Ratio 1.01; Prothrombin Time Results 10.8 Sec (9.7-11.5)
[2024-05-03] MEDS ORDERED: Dose Adjust by Pharmacy XX STA (14:02)
[2024-05-03] MEDS ORDERED: Heparin Sodium,Porcine/0.5 NS 500 ML IV SCH (14:05)
[2024-05-03] MEDS ORDERED: HydrALAZINE HCl 20 MG / ML 1ML Vial IV PRN (14:35)
[2024-05-03] MEDS ORDERED: Insulin Human Lispro 100 Units/ML 3ML Syringe SC SCH (16:30)
--- NOTE | 2024-05-03 19:37 | NUR ---
PT ADMITTED TO [facility] FROM ER THIS AFTERNOON FOR CVA. SEE ADMISSION DOCUMENTATION AND ASSESSMENT. PT'S DTR POA AT BEDSIDE AND UPDATED ON PLAN OF CARE. CLARIFIED CODE STATUS AND OBTAINED POLST FROM [facility]. DR APPIAH CONTACTED AND CODE STATUS CHANGED FROM FULL CODE TO DNR PER PT'S WISHES ON POLST FORM. DTR IS IN AGREEMENT, PT IS TOO SOMULENT TO ANSWER FOR HERSELF AT THIS TIME. PT MEDICATED WITH HYDRALAZINE X 1 FOR BP>180, RESPONDED WELL, SEE DOCUMENTED VS. HEPARIN AND IVF INFUSING PER MD ORDERS. NO NEUROLOGICAL CHANGES NOTED DURING MY SHIFT. SPEECH THERAPY WILL SEE PT IN THE AM, PT WILL REMAIN NPO UNTIL THEN. REPORT GIVEN TO FELTON KELLER.
[2024-05-03] MEDS ORDERED: Meropenem 500 MG in NS 100 ML IV SCH (20:00)
[2024-05-03] MEDS ORDERED: Lactobacil 2-S.Thermo-Bifido 1 1 Cap PO SCH (21:00)
[2024-05-04] VITALS (12 sets, daily range): BP systolic 108–180; BP diastolic 44–83
[2024-05-04] MEDS ORDERED: Dose Adjust by Pharmacy XX STA ×2 (03:20→10:27)
[2024-05-04] MEDS ORDERED: Meropenem 500 MG in NS 100 ML IV SCH ×2 (04:00→16:00)
--- NOTE | 2024-05-04 06:08 | NUR ---
SHIFT SUMMARY PATIENT PRETTY SOMNOLENT/DROWSY BUT DOES AROUSE TO VERBAL STIMULI, DISORIENTED TO TIME BUT OTHERWISE ORIENTED AND COOPERATIVE WITH CARES. Q4H NEURO CHECKS UNCHANGED OVERNIGHT. PATIENT APPEARED TO SLEEP MOST OF THE NIGHT, EVEN CHEST RISE AND FALL, NO ACCESSORY MUSCLE USE. HEMODYNAMICALLY STABLE, AFEBRILE. DENIES PAIN. Q2H TURNS AND REPOSITIONING TO PREVENT SKIN BREAKDOWN. PATIENT IS NPO WITH BLOOD GLUCOSE Q6H, STABLE. HEPARING GTT INFUSING, RATE MANAGED PER PHARMACY. CHRONIC HER, CATH CARE AND LYDIA CARE COMPLETED. NO ACUTE EVENTS OVERNIGHT. SPEECH EVAL TODAY.
[2024-05-04] MEDS ORDERED: Nitroglycerin 0.4 MG SUBL SL PRN (07:55)
[2024-05-04] MEDS ORDERED: Estradiol Vag Cream 0.1 MG/G 42.5 GM Tube VAG SCH (07:55)
[2024-05-04] MEDS ORDERED: Albuterol HFA200 ACT/6.7 GM INH INH PRN (08:00)
[2024-05-04] MEDS ORDERED: Mometasone/Formoterol MDI 100/5 mcg 13 GM INH SCH (08:00)
[2024-05-04] MEDS ORDERED: Ipratropium Bromide INH 0.02% 0.5 mg/2.5ML Vial INH SCH (08:00)
[2024-05-04] MEDS ORDERED: Atorvastatin 40 MG Tab PO SCH (09:00)
[2024-05-04] MEDS ORDERED: Calcium 500 MG/Vit D 200 Units Tab PO SCH (09:00)
[2024-05-04] MEDS ORDERED: Levothyroxine Sodium 100 MCG Vial IV SCH (09:00)
[2024-05-04] MEDS ORDERED: Sennosides 8.6 MG Tab PO SCH (09:00)
[2024-05-04] MEDS ORDERED: Clopidogrel Bisulfate 75 MG Tab PO SCH (09:00)
[2024-05-04] MEDS ORDERED: Polyethylene Glycol 3350 17 gm PO SCH (09:00)
[2024-05-04] MEDS ORDERED: Docusate Sodium 100 MG Cap PO SCH (09:00)
[2024-05-04] MEDS ORDERED: Aspirin 81 MG Chew PO SCH (09:00)
[2024-05-04 10:13] LABS: BASOPHILS ABSOLUTE AUTO 0.07 K/mm3 (0.00-0.23); BASOPHILS PERCENT AUTO 1 % (0-2); EOSINOPHILS ABSOLUTE AUTO 0.07 K/mm3 (0.00-0.68); EOSINOPHILS PERCENT AUTO 1 % (0-6); Hematocrit 34.6 % (33.0-51.0); Hemoglobin 10.7 g/dL (11.5-16.0); IMMATURE GRAN ABSOLUTE AUTO 0.06 K/mm3 (0.00-0.10); IMMATURE GRAN PERCENT AUTO 1 % (0-1); LYMPHOCYTES ABSOLUTE AUTO 0.87 K/mm3 (0.84-5.20); LYMPHOCYTES PERCENT AUTO 9 % (21-46); MONOCYTES ABSOLUTE AUTO 0.42 K/mm3 (0.16-1.47); MONOCYTES PERCENT AUTO 5 % (4-13); Mean Corpuscular HGB 27.3 pg (26.0-34.0); Mean Corpuscular HGB Conc 30.9 g/dL (31.5-36.5); Mean Corpuscular Volume 88 fL (80-100); Mean Platelet Volume 8.9 fL (9.1-12.4); NEUTROPHILS ABSOLUTE AUTO 7.77 K/mm3 (1.96-9.15); NEUTROPHILS PERCENT AUTO 84 % (41-73); Platelet Count 229 K/mm3 (150-400); RDW Standard Deviation 47.6 fL (35.1-46.3); Red Blood Cell Count 3.92 M/mm3 (3.80-5.20); White Blood Cell Count 9.26 K/mm3 (4.00-11.30)
--- NOTE | 2024-05-04 10:37 | NUR ---
AM NOTES; DAUGHTER AT THE BEDSIDE THIS MORNING UPON SHIFT CHANGE, PT WAS ALERT AND AWAKE ANSWERS QUESTIONS APPROPRIATELY, [place]. NO CURRENT CHANGE ON NEURO'S LIMITED ROM ON RIGHT ARM D/T HX R SHOULDER INJ, A&OX3, SOME LEFT FACIAL DROOP AND LEFT ARM WEAKNESS. BEDBOUND BASELINE BILAT FOOT DROP. VITALS HRR SR60'S, SBP 100-130'S, SATS ABOVE 95% ON 2L OF O2 HAS SOME WEAK COUGH NONPRODUCTIVE. AFEBRILE. CHRONIC HER DRAINING PATENT VIA GRVAITY, PT COMPLIANT WITH Q2HR POSITIONING, EXCORIATION ON LEFT INNER THIGH. HEP GTT TURNED DOWN TO 11U/KG/HR PER PHARMACY DOSING, LR AT 75 MLS/HR. PT DIET RESUMED SPEECH THERAPIST WAS ABLE TO WORK WITH PT THIS MORNING, MINCED AND MOIST DIET, MEDS WHOLE WITH APPLESAUCE THICKENED FLUIDS NO STRAWS, NEEDS ASSISTANCE WITH FEEDINGS. PT RESTING AT THIS TIME, DR APPIAH ABLE TO COME BY AND TALK TO THE DAUGHTER AT BEDSIDE ABOUT CARE PLAN. NO OTHER ISSUES AT THIS TIME, PT TRANSITIONED TO MED WITH TELE. CALL LIGHTS IN REACH WILL CONTINUE TO MONITOR
--- NOTE | 2024-05-04 12:50 | NUR ---
THIS RN ASSUMED CARE OF PT AT THIS TIME.
--- NOTE | 2024-05-04 14:02 | NUR ---
TRANSFER TO MEDICAL: PT TRANSFERRED TO ROOM 311 BY BED AT THIS TIME. ALL PT BELONGINGS GATHERED & TRANSPORTED W/ PT. REPORT TO REESE YA TO ASSUME CARE. PT'S DAUGHTER TO ROOM 311 W/ PT & STAFF.
--- NOTE | 2024-05-04 15:49 | NUR ---
TRANSFER NOTE- PT TRANSFERED TO MEDICAL FLOOR FROM PCU 1. TELEPHONE REPORT COMPLETED PRIOR TO PT TRANSFER. 2RN SKIN CHECK PERFORMED WITH JOB TRAINING SPECIALIST JEN. PT HAS REDNESS ON THE RIGHT INNER THIGH WITH A SMALL OPEN AREA, THERE ARE DARK PHOTOS IN THE CHART THAT ARE OF THAT AREA. PLACED A MEPILEX OVER THE AREA. PLACED A COCCYX MEPILEX FOR PREVENTION. REDNESS IN THE FOLDS OF THE PANUS AND LEFT BREAST WERE WASHED AND DRIED, BABY POWDER APPLIED TO AID IN THE PREVENTION OF CHAFING. PT DENIES PAIN AT THIS TIME, SHE DID C/O NAUSEA AND WAS MEDICATED BUT FELTON NICHOLS. PT REPOSITIONED ON ARRIVAL TO MEDICAL FLOOR. HER IN PLACE PATENT AND DRAINING YELLOW URINE WITH SEDIMENT.
--- NOTE | 2024-05-04 18:22 | NUR ---
SHIFT SUMMARY- PT HAS BEEN REPOSITIONED Q2 SINCE HER ARRIVAL ON MED FLOOR THIS AFTERNOON. SHE ALREADY HAS SOME SKIN BREAKDOWN. PT IS VERY SLEEPY AND HAS BEEN RESTING SINCE SHE ARRIVED ON MED FLOOR. SHE HAD A SHOORT RUN OF BIGEMINAL PVC'S BUT WAS ASYMPTOMATIC. UNTIL 1829 WHEN TELE CALLED AND STATED THE PT WAS SUSTAINED IN VTACH AT 160. CANAL EQUIPMENT MAINTENANCE SUPERVISOR NOTIFIED. VITALS CHECKED, BP ELEVATED, PT DENIES SOV BUT RESP RATE INCREASED AT 24 AND SATS 84% PLACED ON 2L AND SATS INCREASED TO 92%. CALLED DR APPIAH AND RECIEVED ORDER FOR PO METOPROLOL 25MG FIRST DOSE NOW. AND O2 TO MAINTAIN SATS GREATER THAN 92%. PER TELE PT WAS IN SVT RATHER THAN VTACH. AFTER SHE CONVERTED SHE STARTED HAVING BIGEMINAL PVC'S AGAIN. AWARE AND WILL REVIEW PT ECHO.
[2024-05-04] MEDS ORDERED: Metoprolol Tartrate 25 MG Tab PO SCH (18:40)
[2024-05-05 04:34] VITALS: BP 155/86
[2024-05-05 04:58] LABS: Hematocrit 36.8 % (33.0-51.0); Hemoglobin 11.5 g/dL (11.5-16.0); Mean Corpuscular HGB 27.4 pg (26.0-34.0); Mean Corpuscular HGB Conc 31.3 g/dL (31.5-36.5); Mean Corpuscular Volume 88 fL (80-100); Platelet Count 244 K/mm3 (150-400); RDW Coefficient Variation 14.8 % (11.7-14.2); RDW Standard Deviation 46.8 fL (35.1-46.3); White Blood Cell Count 6.36 K/mm3 (4.00-11.30)
[2024-05-05 05:21] LABS: Bun/Creatinine Ratio 25.2 (12.0-20.0); Creatinine, Blood 1.63 mg/dL (0.40-1.00); Potassium, Blood 4.4 mmol/L (3.5-5.5)
--- NOTE | 2024-05-05 05:54 | NUR ---
SHIFT SUMMARY: Pt admitted for acute CVA and is a DNR. is alert and able to make some needs known. ADLs have been 2p but did not get out of bed during shift. On ISO for ESBL. denies pain or discomfort when asked and nothing noted. Telly reports sinus in the 70s with PVCs. folly in place and draining clear yellow urine.
[2024-05-05 07:40] VITALS: BP 143/74
[2024-05-05] MEDS ORDERED: Losartan Potassium 25 MG Tab PO SCH (09:00)
[2024-05-05] MEDS ORDERED: Metoprolol Tartrate 50 MG Tab PO SCH (09:00)
[2024-05-05] MEDS ORDERED: Apixaban 5 MG Tab PO SCH (10:15)
[2024-05-05] MEDS ORDERED: ELIQUIS5 M2 PO (10:46)
[2024-05-05] MEDS ORDERED: ASPI81CH PO (10:47)
[2024-05-05] MEDS ORDERED: LACT PO (10:47)
[2024-05-05] MEDS ORDERED: MEROPENEM500 M1 IV (10:47)
[2024-05-05 12:30] LABS: Influenza A, PCR NEGATIVE (NEGATIVE); Influenza B, PCR NEGATIVE (NEGATIVE); Resp Syncytial Virus, PCR NEGATIVE (NEGATIVE); SARS-Cov-2 (COVID-19) PCR, MMC NEGATIVE (NEGATIVE)
--- NOTE | 2024-05-05 17:10 | NUR ---
DISCHARGE NOTE- PT DC'D TO THE [facility]ICAL [facility]. CALLED THE FACILITY AND GAVE VERBAL REPORT TO FATIMAH. PT WAS TAKEN VIA GURNEY TRANSPORT BACK TO THE MEDICAL CENTER. IV IN THE LEFT FORE ARM NEW 20G PLACED TODAY. NO S&S OF DISTRESS, ON ROOM AIR.
== END 2024-05-05 17:01 | DRG 64 ==
LOC: ER 09:32 → PCU 13:11 → MEDS 05-04 14:06
PROVIDERS: Student in an Organized Health Care Education/Training Program; ADMIT Internal Medicine
DX: I63.9 Cerebral infarction, unspecified (principal); G92.8 Other toxic encephalopathy; I47.10 Supraventricular tachycardia, unspecified; R82.90 Unspecified abnormal findings in urine; I48.91 Unspecified atrial fibrillation; N18.30 Chronic kidney disease, stage 3 unspecified; F03.90 Unspecified dementia, unspecified severity, without behavioral disturbance, psychotic disturbance, mood disturbance, and anxiety; Z66 Do not resuscitate; E11.22 Type 2 diabetes mellitus with diabetic chronic kidney disease; E03.9 Hypothyroidism, unspecified; G47.33 Obstructive sleep apnea (adult) (pediatric); M10.9 Gout, unspecified; I12.9 Hypertensive chronic kidney disease with stage 1 through stage 4 chronic kidney disease, or unspecified chronic kidney disease; J44.9 Chronic obstructive pulmonary disease, unspecified; E11.51 Type 2 diabetes mellitus with diabetic peripheral angiopathy without gangrene; R47.1 Dysarthria and anarthria; R13.10 Dysphagia, unspecified; R29.710 NIHSS score 10; D64.9 Anemia, unspecified; R29.810 Facial weakness; R47.81 Slurred speech; I49.3 Ventricular premature depolarization; Z88.1 Allergy status to other antibiotic agents; Z88.8 Allergy status to other drugs, medicaments and biological substances; Z79.899 Other long term (current) drug therapy; Z99.89 Dependence on other enabling machines and devices; Z79.51 Long term (current) use of inhaled steroids; Z79.890 Hormone replacement therapy; Z98.890 Other specified postprocedural states; Z90.710 Acquired absence of both cervix and uterus; Z90.49 Acquired absence of other specified parts of digestive tract; Z87.891 Personal history of nicotine dependence; Z99.3 Dependence on wheelchair; Z74.01 Bed confinement status
CPT/HCPCS: 0241U; 36415; 51702; 70450; 70496; 70498; 71045; 74230; 80048; 80053; 81001; 82947; 83735; 84145; 85025; 85027; 85520; 85610; 87077; 87086; 87186; 92526; 92610; 92611; 93005; 93010; 93306; 94640; 94664; 94760; 94762; 96365-59; 96366-59; 97165; 97535; 99285-25; A9270; J0360; J1644; J2185; J2405; J7120; Q9967

== ENCOUNTER 2024-06-18 11:18 | Inpatient (IN) | payer OTHER ==
[~2024-06-18] VITALS: Ht 165.1 cm; Wt 96.2 kg
[~2024-06-18 11:18] MED LIST changes: +ASPI81CH PO; +ATOR40TA PO; +ELIQUIS5 M2 PO; +Estrace Vagin42.5 GM PV; +GLIP5; +LACT PO; +LOSA25 PO; +MEROPENEM500 M1 IV; +NITR.4SL SL; +TRELEGY ELLIPT1 EACH IH
[2024-06-18 11:46] LABS: BASOPHILS ABSOLUTE AUTO 0.06 K/mm3 (0.00-0.23); BASOPHILS PERCENT AUTO 0 % (0-2); EOSINOPHILS ABSOLUTE AUTO 0.09 K/mm3 (0.00-0.68); EOSINOPHILS PERCENT AUTO 1 % (0-6); Hematocrit 36.3 % (33.0-51.0); Hemoglobin 11.7 g/dL (11.5-16.0); IMMATURE GRAN ABSOLUTE AUTO 0.07 K/mm3 (0.00-0.10); IMMATURE GRAN PERCENT AUTO 1 % (0-1); LYMPHOCYTES ABSOLUTE AUTO 1.97 K/mm3 (0.84-5.20); LYMPHOCYTES PERCENT AUTO 15 % (21-46); MONOCYTES ABSOLUTE AUTO 1.13 K/mm3 (0.16-1.47); MONOCYTES PERCENT AUTO 8 % (4-13); Mean Corpuscular HGB 27.8 pg (26.0-34.0); Mean Corpuscular HGB Conc 32.2 g/dL (31.5-36.5); Mean Corpuscular Volume 86 fL (80-100); Mean Platelet Volume 8.8 fL (9.1-12.4); NEUTROPHILS ABSOLUTE AUTO 10.27 K/mm3 (1.96-9.15); NEUTROPHILS PERCENT AUTO 76 % (41-73); NRBC ABSOLUTE 0.02 K/mm3 (0.00-0.02); NRBC Auto 0.1 /100 WBC (0.0-0.2); Platelet Count 255 K/mm3 (150-400); RDW Coefficient Variation 15.2 % (11.7-14.2); RDW Standard Deviation 47.6 fL (35.1-46.3); Red Blood Cell Count 4.21 M/mm3 (3.80-5.20); White Blood Cell Count 13.59 K/mm3 (4.00-11.30)
[2024-06-18 12:15] LABS: Albumin, Blood 3.2 g/dL (3.4-5.0); Albumin/Globulin Ratio 0.9 (0.8-1.8); Bilirubin, Total 0.6 mg/dL (0.1-1.0); Bun/Creatinine Ratio 32.7 (12.0-20.0); Calcium, Blood 9.2 mg/dL (8.5-10.1); Creatinine, Blood 1.71 mg/dL (0.40-1.00); Globulin, Blood 3.5 g/dL (2.2-4.0); Potassium, Blood 5.6 mmol/L (3.5-5.5); Total Protein, Blood 6.7 g/dL (6.4-8.2)
[2024-06-18] MEDS ORDERED: Furosemide 10 MG/ML 4ML Vial IV ONE (12:15)
[2024-06-18 13:23] LABS: Influenza A, PCR NEGATIVE (NEGATIVE); Influenza B, PCR NEGATIVE (NEGATIVE); Resp Syncytial Virus, PCR NEGATIVE (NEGATIVE); SARS-Cov-2 (COVID-19) PCR, MMC NEGATIVE (NEGATIVE)
[2024-06-18 14:18] LABS: Base Excess Venous -4.9 mmol/L; Bicarbonate Venous 20.8 mmol/L (24.0-30.0); PCO2 Venous 38.1 mmHg (38-42); pH Blood Venous 7.35 (7.34-7.37)
[2024-06-18] MEDS ORDERED: Tiotropium Bromide 2.5 MCG/ACT MIST INHAL (10 ACT/4 GM) INH SCH (15:10)
[2024-06-18] MEDS ORDERED: Ipratropium/Albuterol SulF 2.5-0.5MG/3 ML Amp INH SCH (15:10)
[2024-06-18] MEDS ORDERED: Mometasone/Formoterol MDI 100/5 mcg 13 GM INH SCH (15:20)
[2024-06-18 17:15] VITALS: BP 112/63
[2024-06-18 18:01] LABS: Source, Urine Foley catheter
[2024-06-18 18:08] LABS: Appearance, Urine Hazy (Clear); Bilirubin, Urine Neg (Neg); Blood, Urine 5+ (Neg); Glucose Qualitative, Urine Neg (Neg); Ketones, Urine Neg (Neg); Leukocyte Esterase, Urine 2+ (Neg); Nitrite, Urine Neg (Neg); Protein, Urine 2+ (Neg); Specific Gravity, Urine 1.015 (1.003-1.022); Urobilinogen, Urine NORM (Normal)
[2024-06-18 18:27] LABS: Color, Urine Pale Yellow (P-Yellow)
[2024-06-18 18:29] LABS: Bacteria Mod /hpf; Red Blood Cells, Urine 25-50 /hpf (0-2); Squamous Epithelial Cells Few /hpf (Few)
--- NOTE | 2024-06-18 18:48 | NUR ---
1707- PT ARRIVED TO MEDICAL FLOOR ON BIPAP. PT'S HER CATHETER CHANGED PER HOSPITAL POLICY AND SAMPLE SENT TO LAB. THIS RN CALLED DR. RICHARD AND NOTIFIED HIM OF ALL PT'S SKIN ISSUES DOCUMENTED IN PT'S ADMISSION ASSESSMENT. THIS RN TO ORDER CHEM BG Q 6 PER PROTOCOL DUE TO PT BEING NPO AND A DIABETIC.
[2024-06-18 18:55] LABS: Adenovirus Not Detected (NOT DETECT); Bordetella pertussis Not Detected (NOT DETECT); Chlamydophila pneumoniae Not Detected (NOT DETECT); Coronavirus 229E Not Detected (NOT DETECT); Coronavirus HKU1 Not Detected (NOT DETECT); Coronavirus NL63 Not Detected (NOT DETECT); Coronavirus OC43 Not Detected (NOT DETECT); Human Metapneumovirus Not Detected (NOT DETECT); Human Rhinovirus/Enterovirus Not Detected (NOT DETECT); Influenza A/2009-H1 Not Detected (NOT DETECT); Influenza A/H1 Not Detected (NOT DETECT); Influenza A/H3 Not Detected (NOT DETECT); Influenza B Not Detected (NOT DETECT); Mycoplasma pneumoniae Not Detected (NOT DETECT); Parainfluenza Virus 1 Not Detected (NOT DETECT); Parainfluenza Virus 2 Not Detected (NOT DETECT); Parainfluenza Virus 3 Not Detected (NOT DETECT); Parainfluenza Virus 4 Not Detected (NOT DETECT); Respiratory Syncytial Virus Not Detected (NOT DETECT); SARS-Cov-2 (COVID-19), BioFire Not Detected (NOT DETECT)
[2024-06-18 20:10] VITALS: BP 140/63
[2024-06-18] MEDS ORDERED: Apixaban 5 MG Tab PO SCH (21:00)
[2024-06-18] MEDS ORDERED: MethylPREDNISolone Sod Succ 125 MG Vial IV SCH (21:00)
[2024-06-18] MEDS ORDERED: Metoprolol Tartrate 50 MG Tab PO SCH (21:00)
[2024-06-18] MEDS ORDERED: Metoprolol Tartrate 1 MG/ML 5 ML VIAL IV PRN (21:20)
[2024-06-19 00:28] VITALS: BP 120/68
[2024-06-19 03:15] VITALS: BP 122/97
[2024-06-19] MEDS ORDERED: LORA.5 PO (03:25)
[2024-06-19] MEDS ORDERED: MORP20L PO (03:26)
[2024-06-19] MEDS ORDERED: BISA5EC PO (03:27)
[2024-06-19] MEDS ORDERED: BISA10S PR (03:28)
[2024-06-19] MEDS ORDERED: ATOR80 PO (03:29)
[2024-06-19 04:18] LABS: BASOPHILS ABSOLUTE AUTO 0.02 K/mm3 (0.00-0.23); BASOPHILS PERCENT AUTO 0 % (0-2); EOSINOPHILS PERCENT AUTO 0 % (0-6); Hematocrit 37.7 % (33.0-51.0); IMMATURE GRAN PERCENT AUTO 1 % (0-1); LYMPHOCYTES ABSOLUTE AUTO 0.69 K/mm3 (0.84-5.20); LYMPHOCYTES PERCENT AUTO 5 % (21-46); MONOCYTES ABSOLUTE AUTO 0.14 K/mm3 (0.16-1.47); MONOCYTES PERCENT AUTO 1 % (4-13); Mean Corpuscular HGB 27.5 pg (26.0-34.0); Mean Corpuscular HGB Conc 31.8 g/dL (31.5-36.5); Mean Corpuscular Volume 87 fL (80-100); Mean Platelet Volume 9.5 fL (9.1-12.4); NEUTROPHILS ABSOLUTE AUTO 11.92 K/mm3 (1.96-9.15); NEUTROPHILS PERCENT AUTO 93 % (41-73); NRBC ABSOLUTE 0.02 K/mm3 (0.00-0.02); NRBC Auto 0.2 /100 WBC (0.0-0.2); Platelet Count 243 K/mm3 (150-400); RDW Standard Deviation 46.6 fL (35.1-46.3); Red Blood Cell Count 4.36 M/mm3 (3.80-5.20); White Blood Cell Count 12.87 K/mm3 (4.00-11.30)
--- NOTE | 2024-06-19 04:39 | NUR ---
SHIFT SUMMARY. AOX1-2, HAS SLEPT THROUGH MOST OF SHIFT THUS FAR. HAS NOT USED CALL LIGHT BUT IS ABLE TO MAKE NEEDS KNOWN AND IS PLEASANT, COOPERATIVE WITH CARE. ON BIPAP THROUGHOUT SHIFT, SATURATING AT 99% AT THIS TIME. TELE ON THROUGHOUT SHIFT, WAS RUNNING AFIB AT THE BEGINNING OF THE SHIFT BUT HAS CONVERTED TO SINUS OVERNIGHT, HEART RATE HAS SETTLED IN THE 70s-90s RANGE AFTER RUNNING IN THE 100s-130s RANGE FOR THE BEGINNING OF SHIFT. PT WAS UNABLE TO TAKE PO MEDS ON EVENING MED PASS, CALLED RESIDENT DR. MORE AND RECEIVED ORDER FOR LORPESSOR 5 MG IV Q6P FOR HEART RATE MANAGEMENT. ADMINISTERED ONE TIME. NO PAIN REPORTED THROUGHOUT SHIFT. REPOSITIONED Q2. HER IN PLACE THROUGHOUT SHIFT, NO COMPLAINTS OF PAIN/PRESSURE DRAINING WELL TO GRAVITY. MEDICATION RECONCILIATION COMPLETED TO BEST OF ABILITY BASED ON LIST FROM [facility], UNSURE OF FREQUENCY OF MEDICATIONS DUE TO INSUFFICIENT INFORMATION ON LIST. CALLED AND SPOKE WITH NURSE AT [facility] REQUESTING FURTHER INFORMATION BUT HAVE YET TO RECEIVE. BED LOCKED IN LOWEST POSITION. CALL LIGHT LEFT WITHIN REACH. CONTINUING TO MONITOR.
[2024-06-19 04:41] LABS: Bun/Creatinine Ratio 35.9 (12.0-20.0); Calcium, Blood 9.8 mg/dL (8.5-10.1); Creatinine, Blood 1.84 mg/dL (0.40-1.00); Potassium, Blood 4.9 mmol/L (3.5-5.5)
[2024-06-19] MEDS ORDERED: Levothyroxine Sodium 0.1 MG Tab PO SCH (06:00)
--- NOTE | 2024-06-19 07:20 | NUR ---
4118- CALL TO DR. RICHARD AND ASKED FOR INSULIN ORDER. PT IS NOW ON A DIET AND EI=[id number] THIS MORNING. NEED CHEM BG ACHS ORDER WELL. JOSE MANUEL STATED HE WILL ORDER THESE.
[2024-06-19] MEDS ORDERED: Insulin Human Lispro 100 Units/ML 3ML Syringe SC SCH (07:30)
[2024-06-19 07:47] VITALS: BP 131/108
[2024-06-19] MEDS ORDERED: Furosemide 20 MG Tab PO SCH (09:00)
[2024-06-19] MEDS ORDERED: Empagliflozin 10 MG TAB PO SCH (09:00)
[2024-06-19] MEDS ORDERED: Atorvastatin 40 MG Tab PO SCH (09:00)
[2024-06-19] MEDS ORDERED: Losartan Potassium 25 MG Tab PO SCH (09:00)
[2024-06-19 11:40] VITALS: BP 130/49
[2024-06-19 15:14] VITALS: BP 145/125
[2024-06-19] MEDS ORDERED: Albuterol 2.5 MG/3 ML VIAL INH SCH (15:25)
--- NOTE | 2024-06-19 16:38 | NUR ---
SUMMARY- PT AAOX2 THIS SHIFT TO SELF AND PLACE. BESREST. PT GIVEN BED BATH THIS SHIFT. PT HAS BEEN WEANED DOWN OFF OF OXYGEN THIS SHIFT AND NOW ON RA. PT TURNED Q 2 HRS. PT DENIES ANY PAIN THIS SHIFT. NO ACUTE EVENTS THIS SHIFT. NSR IN THE 90'S THIS SHIFT.
[2024-06-19 20:04] VITALS: BP 132/52
--- NOTE | 2024-06-19 20:20 | NUR ---
Assumed care of pt at 1900 Pt sitting up in bed, watching tv. Pt alert and oriented x2, cooperative w/ care and pleasant. Pt on room air, sats >92%. Lung sounds coarse t/o. A-fib rate of 100s. Bp stable. Pt afebrile. Pichardo cath in place and draining to gravity w/ good output. Pt takes bedtime pills w/ out incident. Repositioned and floated on pillows for comfort. PT has bilat egg grate braces to feet. Skin appears pale and fragile. Call light w/in reach and pt verbalized understanding of use. Plan of care ongoing.
[2024-06-20 00:09] VITALS: BP 135/51
[2024-06-20 03:55] VITALS: BP 125/61
--- NOTE | 2024-06-20 05:00 | NUR ---
End of shift summary No acute events overnight. Pt continues to be aox2, pleasant and cooperative w/ care. Wore cpap from home t/o night without issue, o2 sats >95%. Pt hr is afib rate of 60s via continuous board saw runner. BP stable. Afebrile. Pt did not have bm during shift. Pichardo cath patent and draining yellow urine to gravity- good output. Pt has call light w/ in reach. Plan of care ongoing.
[2024-06-20 08:07] VITALS: BP 136/46
--- NOTE | 2024-06-20 08:30 | NUR ---
INITIAL ASSESSMENT: Patient is sitting up eating breakfast and watching TV. She is oriented to self and location only, she is able to tell me the year but not the date and day. She denies pain at this time. HR Irreg, A-Fib in the 70s-80s, blood pressure on the low side diastolically. LS DIM and coarse in the upper lobes, LS clear with cough. Biox is low 90s on RA. BT+, she has not had a BM since she has been in the hospital. PPP. She has some redness in her groin and under her panus. She has some small wounds on the tops of her toes, she states they're tender. She denies other needs at this time. Med given whole with applesauce. She denies other needs at this time, call light in reach.
[2024-06-20] MEDS ORDERED: PredniSONE 20 MG Tab PO SCH (09:00)
[2024-06-20] MEDS ORDERED: JARDIANCE10 MG PO (11:32)
[2024-06-20] MEDS ORDERED: FURO20 PO (11:33)
[2024-06-20] MEDS ORDERED: PRED20 PO (11:34)
[2024-06-20 11:37] LABS: SARS-Cov-2 (COVID-19) PCR, MMC NEGATIVE (NEGATIVE)
[2024-06-20 11:50] VITALS: BP 143/46
--- NOTE | 2024-06-20 13:15 | NUR ---
DISCHARGE: came by to see the patinent. Plan for discharge. Paperwork has been sent to [facility]. This RN attempted to call report to [facility], phone was busy. Daughter Yvonne was notified. Patient was discharged back to home via [facility].
== END 2024-06-20 13:31 | DRG 291 ==
LOC: ER 11:18 → PCU 16:12
PROVIDERS: Emergency Medicine; ADMIT Family Medicine
PROC: 5A09357 Assistance with Respiratory Ventilation, Less than 24 Consecutive Hours, Continuous Positive Airway Pressure (ICD-10-PCS; principal; 2024-06-18)
DX: I13.0 Hypertensive heart and chronic kidney disease with heart failure and stage 1 through stage 4 chronic kidney disease, or unspecified chronic kidney disease (principal); I50.33 Acute on chronic diastolic (congestive) heart failure; J96.01 Acute respiratory failure with hypoxia; N18.4 Chronic kidney disease, stage 4 (severe); J44.1 Chronic obstructive pulmonary disease with (acute) exacerbation; I48.20 Chronic atrial fibrillation, unspecified; Z66 Do not resuscitate; I25.10 Atherosclerotic heart disease of native coronary artery without angina pectoris; E03.9 Hypothyroidism, unspecified; G47.33 Obstructive sleep apnea (adult) (pediatric); F03.90 Unspecified dementia, unspecified severity, without behavioral disturbance, psychotic disturbance, mood disturbance, and anxiety; M10.9 Gout, unspecified; Z95.2 Presence of prosthetic heart valve; Z87.440 Personal history of urinary (tract) infections; Z88.1 Allergy status to other antibiotic agents; Z88.8 Allergy status to other drugs, medicaments and biological substances; Z79.899 Other long term (current) drug therapy; Z79.51 Long term (current) use of inhaled steroids; Z79.890 Hormone replacement therapy; Z79.01 Long term (current) use of anticoagulants; Z79.82 Long term (current) use of aspirin; Z98.890 Other specified postprocedural states; Z90.49 Acquired absence of other specified parts of digestive tract; Z90.710 Acquired absence of both cervix and uterus; Z87.891 Personal history of nicotine dependence
CPT/HCPCS: 0202U; 0241U; 36415; 71045; 80048; 80053; 81001; 82803; 82947; 83735; 83880; 84145; 84443; 84484; 85025; 87077; 87086; 87186; 93005; 93010; 94640; 94660; 94664; 94762; 96374; 99285-25; A9270; J1940; J2919; J7512; U0002